=== PATIENT | female | born 1990 | race Hispanic/Latino ===

== ENCOUNTER 2018-06-13 16:51 | Emergency (ER) | payer SELFPAY ==
[2018-06-13 20:18] LABS: Urine Blood 2+ (NEG); Urine Glucose NEGATIVE (NEG); Urine Protein 1+ (NEG)
[2018-06-13 20:55] LABS: Absolute Lymphocytes (CBC) 2.8 K/uL (0.7-4.9); Absolute Monocytes 0.8 K/uL (0.1-1.3); Absolute Neutrophil 9.1 K/uL (1.8-8.0); Basophils % 0.5 % (0-1.3); Eosinophils % 2.9 % (0-4.4); Hematocrit 42.4 % (36.0-45.0); Lymphocytes % 21.2 % (15.3-44.8); MPV 8.7 fL (7.6-11.3); Monocytes % 5.9 % (3.3-12.3); RBC Red Blood Cell Count 4.63 M/uL (3.86-4.86)
[2018-06-13 21:39] LABS: BUN Blood Urea Nitrogen 12 mg/dL (7-18); Bicarbonate 25 mmol/L (21-32); Glucose Level 74 mg/dL (74-106); HCG, Quantitative 138752 mIU/mL (1-3); Potassium 3.9 mmol/L (3.5-5.1); Sodium Level 138 mmol/L (136-145)
--- NOTE | 2018-06-13 22:04 | ER ---
Nurse's Notes [facility] Name: Daniella Gallego Age: 28 yrs Sex: Female : 1990 Arrival Date: 06/13/2018 Time: 16:55 Bed 16 Private MD: TUCKER ROME Diagnosis: Threatened Presentation: 06/13 17:05 Presenting complaint: Vaginal bleeding and lower abdominal pain x 2 days. Pt reports hb she is 7 weeks , LMP 04/19/2018, . Transition of care: patient was not received from another setting of care. Onset of symptoms was June 12, 2018. Risk Assessment: Do you want to hurt yourself or someone else? Patient reports no desire to harm self or others. Care prior to arrival: None. 17:05 Method Of Arrival: Ambulatory hb 17:05 Acuity: TANNER 3 hb 20:00 Initial Sepsis Screen: Does the patient meet any 2 criteria? No. Patient's initial rr5 sepsis screen is negative. Does the patient have a suspected source of infection? No. Patient's initial sepsis screen is negative. 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 - Social history:: Smoking status: Patient/guardian denies using tobacco. - Ebola Screening: : No symptoms or risks identified at this time. Screenin:22 Abuse screen: Denies threats or abuse. Denies injuries from another. Nutritional rr5 screening: No deficits noted. Tuberculosis screening: No symptoms or risk factors identified. Fall Risk None identified. Total Johnson Fall Scale indicates No Risk (0-24 pts). Assessment: 19:15 General: Appears in no apparent distress. uncomfortable, Behavior is calm, cooperative, rr5 appropriate for age. Pain: Complains of pain in lower abdominal Pain currently is 7 out of 10 on a pain scale. Quality of pain is described as aching, Pain began gradually, Is intermittent. 19:15 Neuro: Level of Consciousness is awake, alert, obeys commands, Oriented to person, rr5 place, time, situation, Appropriate for age. Cardiovascular: Capillary refill < 3 seconds Patient's skin is warm and dry. Respiratory: Airway is patent Respiratory effort is even, unlabored, Respiratory pattern is regular, symmetrical. GI: Abdomen is round : No signs and/or symptoms were reported regarding the genitourinary system. EENT: No signs and/or symptoms were reported regarding the EENT system. Derm: Skin is intact, Skin temperature is warm. Musculoskeletal: Capillary refill < 3 seconds, Range of motion: intact in all extremities. 19:15 Obstetrical Assessment: General assessment: awake and alert, Rupture of membranes rr5 noted. Patient reports Abdominal pain. 19:15 : Reports vaginal bleeding that is with clots, coles in [place] discharge . i have not rr5 check for test yet. I don't have menstrual period for 2 months. 20:45 Reassessment: Patient appears in no apparent distress at this time. No changes from rr5 previously documented assessment. Patient is alert, oriented x 3, equal unlabored respirations, skin warm/dry/pink. went for ultrasound. 21:30 Reassessment: Patient appears in no apparent distress at this time. awaiting for result.rr5 22:15 Reassessment: Patient appears in no apparent distress at this time. Patient is alert, rr5 oriented x 3, equal unlabored respirations, skin warm/dry/pink. patient refused for pelvic exam. ED provider spoke to the patient and discharge. instructions given with no complaints made. Vital Signs: 17:06 BP 113 / 99; Pulse 90; Resp 16; Temp 98.4; Pulse Ox 100% on R/A; Pain 7/10; hb 19:15 BP 104 / 59; Pulse 78; Resp 16; Pulse Ox 100% ; rr5 20:30 BP 98 / 61; Pulse 75; Resp 17; Pulse Ox 99% ; rr5 21:30 BP 101 / 60; Pulse 70; Resp 17; Pulse Ox 99% ; rr5 22:00 BP 103 / 60; Pulse 71; Resp 18; Pulse Ox 98% ; rr5 ED Course: 16:55 Patient arrived in ED. sb2 16:56 TUCKER ROME is Private Physician. sb2 17:06 Triage completed. hb 17:07 Arm band placed on. hb 19:15 Pradeep Crump PA is PHCP. cp 19:18 Shawnee Kay, RN is Primary Nurse. ls4 19:23 Patient has correct armband on for positive identification. Placed in gown. Bed in low rr5 position. Call light in reach. Side rails up X 1. Pulse ox on. NIBP on. Warm blanket given. 19:38 Pradeep Ambriz MD is Attending Physician. cp 20:20 Inserted saline lock: 22 gauge in left forearm, using aseptic technique. Blood rr5 collected. 21:18 US Transvaginal Ob In Process Unspecified. EDMS 22:15 No provider procedures requiring assistance completed. IV discontinued, intact, rr5 bleeding controlled, No redness/swelling at site. Pressure dressing applied. Administered Medications: No medications were administered Point of Care Testing: Urine : 21:20 hCG Reading: Positive; Control Reading: Positive; rr5 Outcome: 22:02 Discharge ordered by . cp 22:15 Discharged to home ambulatory. rr5 22:15 Condition: stable 22:15 Discharge instructions given to patient, Instructed on discharge instructions, follow up and referral plans. medication usage, Demonstrated understanding of instructions, follow-up care, medications, Prescriptions given X 1. 22:53 Patient left the ED. rr5 Signatures: Dispatcher [employer] EDOR Pradeep Crump PA PA cp Mirta Kim, RN RN Deb Vanegas sb2 Shawnee Kay, RN RN ls4 Martin Wynne, RN RN rr5
--- NOTE | 2018-06-13 22:04 | EDPHYS ---
Physician Documentation [facility] Name: Daniella Gallego Age: 28 yrs Sex: Female : 1990 Arrival Date: 06/13/2018 Time: 16:55 Bed 16 Private MD: TUCKER ROME ED Physician Pradeep Ambriz HPI: 06/13 19:30 This 28 yrs old Female presents to ER via Ambulatory with complaints of cp Vaginal Bleeding, + Preg <12wks. 19:30 The patient presents to the emergency department with abdominal pain, of the suprapubic cp area, that started 2 day(s) ago, described as crampy, vaginal bleeding, that is light. The estimated gestational age is 7 weeks. course: care: none, Ultrasound: the patient has not had an ultrasound. Associated signs and symptoms: Pertinent negatives: chest pain, diarrhea, frequency, vomiting. 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 - Social history:: Smoking status: Patient/guardian denies using tobacco. - Ebola Screening: : No symptoms or risks identified at this time. ROS: 19:35 Constitutional: Negative for body aches, chills, fever, poor PO intake. cp 19:35 Eyes: Negative for injury, pain, redness, and discharge. cp 19:35 ENT: Negative for drainage from ear(s), ear pain, sore throat, difficulty swallowing, difficulty handling secretions. 19:35 Cardiovascular: Negative for chest pain. 19:35 Respiratory: Negative for cough, shortness of breath, wheezing. 19:35 Abdomen/GI: Positive for abdominal cramps, Negative for vomiting, diarrhea, constipation, black/tarry stool, rectal bleeding. 19:35 : Positive for vaginal bleeding, Negative for urinary symptoms. 19:35 Skin: Negative for cellulitis, rash. 19:35 Neuro: Negative for dizziness, headache, syncope, weakness. 19:35 All other systems are negative. Exam: 19:40 Constitutional: The patient appears in no acute distress, alert, awake, non-toxic, well cp developed, well nourished. 19:40 Head/Face: Normocephalic, atraumatic. cp 19:40 Eyes: Periorbital structures: appear normal, Conjunctiva: normal, no exudate, no injection, Sclera: no appreciated abnormality, Lids and lashes: appear normal. 19:40 ENT: External ear(s): are unremarkable, Nose: is normal, Mouth: Lips: moist, Oral mucosa: pink and intact, moist, Posterior pharynx: is normal, airway is patent, no erythema, no exudate. 19:40 Chest/axilla: Inspection: normal, Palpation: is normal, no crepitus, no tenderness. 19:40 Cardiovascular: Rate: normal, Rhythm: regular. 19:40 Respiratory: the patient does not display signs of respiratory distress, Respirations: normal, no use of accessory muscles, no retractions, no splinting, no tachypnea, labored breathing, is not present. 19:40 Abdomen/GI: Inspection: abdomen appears normal, Bowel sounds: active, all quadrants, Palpation: soft, in all quadrants, mild abdominal tenderness, in the suprapubic area, rebound tenderness, is not appreciated, voluntary guarding, is not appreciated, involuntary guarding, is not appreciated. 19:40 Back: pain, is absent, ROM is normal. 19:40 Skin: cellulitis, is not appreciated, no rash present. 21:59 : Pelvic Exam: The exam is refused by the patient/guardian. The risks and cp consequences are understood by the patient. Vital Signs: 17:06 BP 113 / 99; Pulse 90; Resp 16; Temp 98.4; Pulse Ox 100% on R/A; Pain 7/10; hb 19:15 BP 104 / 59; Pulse 78; Resp 16; Pulse Ox 100% ; rr5 20:30 BP 98 / 61; Pulse 75; Resp 17; Pulse Ox 99% ; rr5 21:30 BP 101 / 60; Pulse 70; Resp 17; Pulse Ox 99% ; rr5 22:00 BP 103 / 60; Pulse 71; Resp 18; Pulse Ox 98% ; rr5 MDM: 19:18 Patient medically screened. cp 20:00 Differential diagnosis: STD, ectopic , UTI. cp 22:00 Data reviewed: vital signs, nurses notes, lab test result(s), radiologic studies, cp ultrasound. 22:00 Counseling: I had a detailed discussion with the patient and/or guardian regarding: the cp historical points, exam findings, and any diagnostic results supporting the discharge/admit diagnosis, lab results, radiology results, the need for outpatient follow up, an OB/Gyne specialist, to return to the emergency department if symptoms worsen or persist or if there are any questions or concerns that arise at home. Special discussion: Based on the patient's Hx, exam, and Dx evaluation, there is no indication for emergent surgery or inpatient Tx. It is understood by the patient/guardian that if the Sx's persist or worsen they need to return immediately for re-evaluation. 06/13 19:20 Order name: Urine Dipstick--Ancillary (enter results); Complete Time: 21:20 ms 06/13 19:21 Order name: Urine --Ancillary (enter results); Complete Time: 21:20 ms 06/13 19:39 Order name: Quantitative Hcg; Complete Time: 21:49 cp 0212 21:49 Interpretation: HCGQ 222076; Reviewed. cp 02 19:39 Order name: Abo/rh Typing; Complete Time: 21:49 cp 02 19:39 Order name: Basic Metabolic Panel; Complete Time: 21:49 cp 06/13 19:39 Order name: CBC with Diff; Complete Time: 21:20 cp 0212 21:20 Interpretation: Normal except: WBC 13.2; MCV 91.6. cp 06/13 19:39 Order name: Urine Test (obtain specimen); Complete Time: 20:46 cp 02 19:39 Order name: IV Saline Lock; Complete Time: 20:46 cp 06/13 19:39 Order name: Labs collected and sent; Complete Time: 20:46 cp 06/13 19:39 Order name: NPO; Complete Time: 20:46 cp 12 20:32 Order name: US Transvaginal Ob cp 06/13 20:53 Order name: Urine Microscopic Only rr5 02 19:39 Order name: Urine Dipstick-Ancillary (obtain specimen); Complete Time: 20:46 cp Administered Medications: No medications were administered Point of Care Testing: Urine : 21:20 hCG Reading: Positive; Control Reading: Positive; rr5 Disposition: 06/14 06:54 Co-signature as Attending Physician, Pradeep Ambriz MD I agree with the assessment and [facility] plan of care. Disposition: 06/13/18 22:02 Discharged to Home. Impression: Threatened . - Condition is Stable. - Discharge Instructions: Threatened Miscarriage, Vaginal Bleeding During , First Trimester, Pelvic Rest. - Prescriptions for Vitamin 27- 0.8 mg Oral Tablet - take 1 tablet by ORAL route once daily; 60 tablet. - Medication Reconciliation Form, Thank You Letter, Antibiotic Education, Prescription Opioid Use form. 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 - Problem is new. - Symptoms have improved. Signatures: Dispatcher [employer] EDPradeep Logan MD MD cha Page, Corey, PA PA cp Baxter, Heather, ROD RN Martin Quesada RN RN rr5 Corrections: (The following items were deleted from the chart) 06/13 22:49 20:31 Pelvic Exam Setup ordered. cp rr5 22:53 22:02 06/13/2018 22:02 Discharged to Home. Impression: Threatened . Condition rr5 is Stable. Forms are Medication Reconciliation Form, Thank You Letter, Antibiotic Education, Prescription Opioid Use. 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 Problem is new. Symptoms have improved. cp
[2018-06-13 22:29] LABS: Urine Bacteria <20 /HPF (<20); Urine RBC <5 /HPF (NONE SEEN)
[2018-06-13 22:30] LABS: Urine Culture Reflex Order NOT NEEDED
--- NOTE | 2018-06-14 08:01 | RAD REPORT ---
EXAM DESCRIPTION: US - Transvaginal OB - 06/13/2018 9:17 pm CLINICAL HISTORY: with vaginal bleeding COMPARISON: None. FINDINGS: The uterus 10 x 8 x 8 centimeters. A gestational sac is present within the endometrium. W ithin this is a yolk sac and pole with a crown-rump length 2 centimeters. Cardiac activity 166 beats per minute. Small subchorionic bleed present Neither ovary was seen. An adnexal mass is not noted. Evaluation right and left adnexal unremarkable No significant free fluid is seen. IMPRESSION: Single live intrauterine with an estimated gestational age 8 weeks 4 days ADRIEL 01/19/2019
== END 2018-06-13 22:53 | disposition home or self-care (01) ==
LOC: ER 16:51
DX: O20.0 Threatened abortion (principal); Z3A.01 Less than 8 weeks gestation of pregnancy
CPT/HCPCS: 36415; 76817; 80048; 81003; 81015; 81025; 84702; 85025; 86900; 86901; 99284

== ENCOUNTER 2018-07-06 20:49 | Emergency (ER) | payer SELFPAY ==
[2018-07-06] MEDS ORDERED: PROMETHAZINE 25 MG/ML VIAL ONE (22:18)
[2018-07-06] MEDS ORDERED: NA CHLORIDE 0.9% 2,000 ML ONE (22:19)
[2018-07-06] MEDS ORDERED: FENTANYL CITR 100 MCG/2 ML ONE (22:19)
[2018-07-06] MEDS ORDERED: OXYTOCIN 10 UNIT/ML ML IV ONE (23:33)
[2018-07-06] MEDS ORDERED: NA CHLORIDE 0.9% 1,000 ML ONE (23:33)
[2018-07-07 00:18] LABS: Absolute Lymphocytes (CBC) 2.1 K/uL (0.7-4.9); Absolute Monocytes 0.6 K/uL (0.1-1.3); Absolute Neutrophil 13.2 K/uL (1.8-8.0); Basophils % 0.3 % (0-1.3); Eosinophils % 0.5 % (0-4.4); Hematocrit 40.2 % (36.0-45.0); Lymphocytes % 13.3 % (15.3-44.8); Monocytes % 3.6 % (3.3-12.3); RBC Red Blood Cell Count 4.42 M/uL (3.86-4.86)
[2018-07-07 00:26] LABS: BUN Blood Urea Nitrogen 9 mg/dL (7-18); Bicarbonate 22 mmol/L (21-32); Glucose Level 101 mg/dL (74-106); Potassium 3.5 mmol/L (3.5-5.1); Sodium Level 139 mmol/L (136-145)
[2018-07-07 01:20] LABS: Blood Morphology Comment NOT SEEN (NOT SEEN); Platelet Estimate ADEQ; Urine White Blood Cell Casts OK
[2018-07-07] MEDS ORDERED: PROMETHAZINE 25 MG/ML VIAL ONE (02:15)
[2018-07-07] MEDS ORDERED: NA CHLORIDE 0.9% 1,000 ML ONE (02:15)
[2018-07-07] MEDS ORDERED: METHYLERGONOVINE 0.2MG/ML AMP IM ONE (02:15)
[2018-07-07] MEDS ORDERED: FENTANYL CITR 100 MCG/2 ML ONE ×2 (02:15)
[2018-07-07] MEDS ORDERED: METHYLERGONOVINE 0.2 MG TAB PO ONE (02:27)
--- NOTE | 2018-07-07 02:35 | ER ---
Nurse's Notes [facility] Name: Daniella Gallego Age: 28 yrs Sex: Female : 1990 Arrival Date: 07/06/2018 Time: 20:50 Bed 14 Private MD: Diagnosis: Complete or unspecified spontaneous without complication Presentation: 07/06 20:53 Presenting complaint: Patient states: Vaginal bleeding that started 8 hours ago, aj1 reports hours ago her pain became severe and her bleeding became heavier with large clots. Reports lower abdominal and back pain that she describes as cramping. Patient is currently 14 weeks , and sees Dr. Hart at [facility]. Transition of care: patient was not received from another setting of care. Onset of symptoms was July 06, 2018. Risk Assessment: Do you want to hurt yourself or someone else? Patient reports no desire to harm self or others. Initial Sepsis Screen: Does the patient meet any 2 criteria? No. Patient's initial sepsis screen is negative. Does the patient have a suspected source of infection? No. Patient's initial sepsis screen is negative. Care prior to arrival: None. 20:53 Method Of Arrival: Ambulatory aj1 20:53 Acuity: TANNER 3 aj1 Triage Assessment: 20:55 General: Appears uncomfortable, Behavior is cooperative, agitated, crying, restless. aj1 Pain: Complains of pain in back and abdomen Pain currently is 10 out of 10 on a pain scale. Quality of pain is described as crampy. Neuro: Level of Consciousness is awake, alert, obeys commands. Cardiovascular: Patient's skin is warm and dry. Respiratory: Airway is patent Respiratory effort is even, unlabored, Respiratory pattern is regular, symmetrical. : Reports vaginal bleeding that is bright red, with clots, heavy flow. 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 - Social history:: Smoking status: Patient/guardian denies using tobacco. - Ebola Screening: : Patient denies travel to an Ebola-affected area in the 21 days before illness onset. Screenin:00 Abuse screen: Denies threats or abuse. Denies injuries from another. Nutritional rr5 screening: No deficits noted. Tuberculosis screening: No symptoms or risk factors identified. 21:37 Fall Risk IV access (20 points). Total Johnson Fall Scale indicates No Risk (0-24 pts). rr5 Assessment: 21:00 Reassessment: fetus formed specimen came out, given by the patient. sent to laboratory. rr5 21:00 General: Appears in no apparent distress. uncomfortable, Behavior is calm, appropriate rr5 for age, crying. Pain: Complains of pain in pelvis Pain radiates to back and lower leg Pain currently is 8 out of 10 on a pain scale. Quality of pain is described as aching, Pain began gradually, Is intermittent. Neuro: Level of Consciousness is awake, alert, obeys commands, Oriented to person, place, time, situation. Cardiovascular: Capillary refill < 3 seconds Patient's skin is warm and dry. Respiratory: Airway is patent Respiratory effort is even, unlabored, Respiratory pattern is regular, symmetrical. 21:00 GI: No signs and/or symptoms were reported involving the gastrointestinal system. : rr5 Reports vaginal bleeding that is pass fetus formed specimen. EENT: No signs and/or symptoms were reported regarding the EENT system. Derm: No signs and/or symptoms reported regarding the dermatologic system. Musculoskeletal: Capillary refill < 3 seconds, Range of motion: intact in all extremities. 21:00 Obstetrical Assessment: General assessment: awake and alert, skin warm and dry, crying rr5 fetus came out. 22:00 Reassessment: Patient appears in no apparent distress at this time. Patient is alert, rr5 oriented x 3, equal unlabored respirations, skin warm/dry/pink. no complaints made awaiting for laboratory result. 23:30 Reassessment: complaining of emi pain. ED provider aware with order made and rr5 carried out. 07/07 00:00 Reassessment: ED provider discontinue the pitocin drip. patient having too much rr5 contraction. 02:00 Reassessment: pelvic exam done assisted by chloe VELASCO patient tolerated well. blood rr5 clots noted. 03:00 Reassessment: Patient appears in no apparent distress at this time. Patient is alert, rr5 oriented x 3, equal unlabored respirations, skin warm/dry/pink. ED provider ordered, for discharge after the IV bolus. Reassessment:. 03:57 Reassessment: Patient appears in no apparent distress at this time. Patient is alert, rr5 oriented x 3, equal unlabored respirations, skin warm/dry/pink. discharge instruction given and explained without complaints made. Patient states feeling better. Patient states symptoms have improved. Vital Signs: 07/06 20:55 BP 125 / 98; Pulse 95; Resp 18; Temp 97.6; Pulse Ox 97% on R/A; Weight 81.65 kg (R); aj1 Height 5 ft. 4 in. (162.56 cm); Pain 10/10; 07/07 00:06 BP 110 / 64; Pulse 85; Resp 16; Pulse Ox 99% on R/A; mt 00:53 BP 105 / 65; Pulse 82; Resp 18; Pulse Ox 99% on R/A; mt 02:10 BP 110 / 70; Pulse 89; Resp 16; Pulse Ox 96% on R/A; mt 02:45 BP 97 / 61; Pulse 75; Resp 20; Pulse Ox 98% ; rr5 03:00 BP 95 / 46; Pulse 71; Resp 17; Pulse Ox 99% ; rr5 03:30 BP 97 / 55; Pulse 89; Resp 15; Pulse Ox 99% ; rr5 03:57 BP 100 / 62; Pulse 82; Resp 16; Pulse Ox 99% ; rr5 07/06 20:55 Body Mass Index 30.90 (81.65 kg, 162.56 cm) aj1 ED Course: 07/06 20:50 Patient arrived in ED. ds1 20:55 Triage completed. aj1 20:55 Arm band placed on Patient placed in waiting room, Patient notified of wait time. aj1 21:15 Martin Wynne RN is Primary Nurse. rr5 21:37 Patient has correct armband on for positive identification. Placed in gown. Bed in low rr5 position. Call light in reach. Side rails up X2. Pulse ox on. NIBP on. 21:47 Shaniqua Osuna FNP-C is PHCP. snw 21:47 Anival Moore MD is Attending Physician. snw 22:11 Inserted saline lock: 22 gauge in right wrist, using aseptic technique. Blood collected.wi 07/07 01:58 Assist provider with pelvic exam: Set up pelvic tray. Performed by Shaniqua Osuna ed1 MEDICAL RECORDS SUPERVISOR-C POC passed, sent to pathology, Patient tolerated well. 03:59 IV discontinued, intact, bleeding controlled, No redness/swelling at site. Pressure rr5 dressing applied. Administered Medications: 07/06 22:24 Drug: NS 0.9% 1000 ml Route: IV; Rate: 1 bolus; Site: right wrist; rr5 23:30 Follow up: Response: No adverse reaction; IV Status: Completed infusion; IV Intake: rr5 1000ml 22:25 Drug: Phenergan 6.25 mg Route: IVP; Site: right wrist; rr5 07/07 03:04 Follow up: Response: No adverse reaction rr5 07/06 22:30 Drug: fentaNYL (PF) 50 mcg Route: IVP; Site: right wrist; rr5 07/07 03:04 Follow up: Response: No adverse reaction rr5 07/06 23:30 Drug: NS 0.9% 1000 ml Route: IV; Rate: 125 ml/hr; Site: right wrist; rr5 07/07 01:00 Follow up: Response: No adverse reaction; IV Status: Completed infusion; IV Intake: rr5 1000ml 07/06 23:30 Drug: Pitocin 20 units Route: IV; Rate: calculated rate; Site: right wrist; rr5 07/07 00:00 Follow up: Response: No adverse reaction; IV Status: Order to discontinue infusion; IV rr5 Intake: 125ml 07/06 23:40 Drug: fentaNYL (PF) 50 mcg Route: IVP; Site: right wrist; rr5 07/07 03:05 Follow up: Response: No adverse reaction rr5 02:10 Drug: NS 0.9% 1000 ml Route: IV; Rate: 1 bolus; Site: right wrist; rr5 04:00 Follow up: Response: No adverse reaction; IV Status: Completed infusion; IV Intake: rr5 1000ml 02:10 Drug: Phenergan 6.25 mg Route: IVP; Site: right wrist; rr5 04:00 Follow up: Response: No adverse reaction rr5 02:15 Drug: fentaNYL (PF) 25 mcg Route: IVP; Site: right wrist; rr5 04:00 Follow up: Response: No adverse reaction rr5 02:20 Drug: METHERgine 0.2 mg Route: PO; rr5 04:00 Follow up: Response: No adverse reaction rr5 Intake: 03 23:30 IV: 1000ml; Total: 1000ml. rr5 03 00:00 IV: 125ml; Total: 1125ml. rr5 01:00 IV: 1000ml; Total: 2125ml. rr5 04:00 IV: 1000ml; Total: 3125ml. rr5 Outcome: 02:33 Discharge ordered by MD. hamm 03:59 Discharged to home ambulatory. rr5 03:59 Condition: stable 03:59 Discharge instructions given to patient, Instructed on discharge instructions, follow up and referral plans. medication usage, Demonstrated understanding of instructions, follow-up care, medications, Prescriptions given X 2. 04:01 Patient left the ED. rr5 Signatures: Vikki Mccord RN RN aj1 Shaniqua Osuna, MEDICAL RECORDS SUPERVISOR-C MEDICAL RECORDS SUPERVISOR-Latia Wharton ds1 Audelia Junior RN RN ed1 Carol Burrell mt, Raymond, RN RN rr5 Corrections: (The following items were deleted from the chart) 07/06 20:55 20:53 Presenting complaint: Patient states: Vaginal bleeding that started 8 hours ago, aj1 reports hours ago her pain became severe and her bleeding became heavier with large clots. Reports lower abdominal and back pain that she describes as cramping. aj1
--- NOTE | 2018-07-07 02:35 | EDPHYS ---
Physician Documentation [facility] Name: Daniella Gallego Age: 28 yrs Sex: Female : 1990 Arrival Date: 07/06/2018 Time: 20:50 Bed 14 Private MD: ED Physician Anival Moore HPI: 07/06 22:20 This 28 yrs old Female presents to ER via Ambulatory with complaints of snw Vaginal Bleeding, + Preg <12wks - +14 Wks. 22:20 The patient presents with vaginal bleeding that is moderate. Onset: The snw symptoms/episode began/occurred suddenly, at 12:00, and became worse and became persistent. Associated signs and symptoms: Pertinent positives: cramping. Severity of symptoms: At their worst the symptoms were moderate, severe. seeing Dr. Hart in [place]. pt states she felt the need to push, felt her water break, and the fetus was expelled into to the toilet in the ED waiting room.. 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 - Social history:: Smoking status: Patient/guardian denies using tobacco. - Ebola Screening: : Patient denies travel to an Ebola-affected area in the 21 days before illness onset. ROS: 22:18 Constitutional: Negative for fever, chills, and weight loss, Eyes: Negative for injury, snw pain, redness, and discharge, ENT: Negative for injury, pain, and discharge, Neck: Negative for injury, pain, and swelling, Cardiovascular: Negative for chest pain, palpitations, and edema, Respiratory: Negative for shortness of breath, cough, wheezing, and pleuritic chest pain, Abdomen/GI: Negative for abdominal pain, nausea, vomiting, diarrhea, and constipation, Back: Negative for injury and pain, MS/Extremity: Negative for injury and deformity, Skin: Negative for injury, rash, and discoloration, Neuro: Negative for headache, weakness, numbness, tingling, and seizure. 22:18 : Positive for vaginal bleeding, of the lower abdominal pain (all day), + products of conception delivered in waiting room bathroom. Products collected and sent to lab. Exam: 22:17 Constitutional: This is a well developed, well nourished patient who is awake, alert, snw and in no acute distress. Head/Face: Normocephalic, atraumatic. Eyes: Pupils equal round and reactive to light, extra-ocular motions intact. Lids and lashes normal. Conjunctiva and sclera are non-icteric and not injected. Cornea within normal limits. Periorbital areas with no swelling, redness, or edema. ENT: Nares patent. No nasal discharge, no septal abnormalities noted. Tympanic membranes are normal and external auditory canals are clear. Oropharynx with no redness, swelling, or masses, exudates, or evidence of obstruction, uvula midline. Mucous membranes moist. Neck: Trachea midline, no thyromegaly or masses palpated, and no cervical lymphadenopathy. Supple, full range of motion without nuchal rigidity, or vertebral point tenderness. No Meningismus. Chest/axilla: Normal chest wall appearance and motion. Nontender with no deformity. No lesions are appreciated. Cardiovascular: Regular rate and rhythm with a normal S1 and S2. No gallops, murmurs, or rubs. Normal PMI, no JVD. No pulse deficits. Respiratory: Lungs have equal breath sounds bilaterally, clear to auscultation and percussion. No rales, rhonchi or wheezes noted. No increased work of breathing, no retractions or nasal flaring. mild tachypnea Abdomen/GI: Soft, non-tender, with normal bowel sounds. No distension or tympany. No guarding or rebound. No evidence of tenderness throughout. Back: No spinal tenderness. No costovertebral tenderness. Full range of motion. MS/ Extremity: Pulses equal, no cyanosis. Neurovascular intact. Full, normal range of motion. Neuro: Awake and alert, GCS 15, oriented to person, place, time, and situation. Cranial nerves II-XII grossly intact. Motor strength 5/5 in all extremities. Sensory grossly intact. Cerebellar exam normal. Normal gait. Psych: Awake, alert, with orientation to person, place and time. Behavior, mood, and affect are within normal limits. 22:17 Skin: Appearance: Color: pale. Vital Signs: 20:55 BP 125 / 98; Pulse 95; Resp 18; Temp 97.6; Pulse Ox 97% on R/A; Weight 81.65 kg (R); aj1 Height 5 ft. 4 in. (162.56 cm); Pain 10/10; 07/07 00:06 BP 110 / 64; Pulse 85; Resp 16; Pulse Ox 99% on R/A; mt 00:53 BP 105 / 65; Pulse 82; Resp 18; Pulse Ox 99% on R/A; mt 02:10 BP 110 / 70; Pulse 89; Resp 16; Pulse Ox 96% on R/A; mt 02:45 BP 97 / 61; Pulse 75; Resp 20; Pulse Ox 98% ; rr5 03:00 BP 95 / 46; Pulse 71; Resp 17; Pulse Ox 99% ; rr5 03:30 BP 97 / 55; Pulse 89; Resp 15; Pulse Ox 99% ; rr5 03:57 BP 100 / 62; Pulse 82; Resp 16; Pulse Ox 99% ; rr5 07/06 20:55 Body Mass Index 30.90 (81.65 kg, 162.56 cm) aj1 Procedures: 01:58 Performed Pelvic exam, large clots evacuated, cervix open, no active bleeding.. snw MDM: 07/06 22:00 Patient medically screened. snw 07/07 00:02 Data reviewed: vital signs, nurses notes. Data interpreted: Pulse oximetry: on room air snw is 97 %. Interpretation: normal. Counseling: I had a detailed discussion with the patient and/or guardian regarding: the historical points, exam findings, and any diagnostic results supporting the discharge/admit diagnosis, the presence of at least one elevated blood pressure reading (>120/80) during this emergency department visit, lab results. Response to treatment: pt with sudden increase in pain, pitocin stopped at this time as bleeding is controlled. NS bolus continues. Fentanyl repeated 2nd to pain.. 07/06 21:48 Order name: Abo/rh Typing snw 07/06 23:53 Order name: Basic Metabolic Panel; Complete Time: 00:36 EDMS 07/06 23:53 Order name: CBC with Automated Diff; Complete Time: 01:23 EDMS 07/06 23:53 Order name: ABO/RH typing; Complete Time: 01:24 EDMS 07/07 00:27 Order name: CBC Smear Scan; Complete Time: 01:23 EDMS 07/06 21:48 Order name: IV Saline Lock; Complete Time: 22:11 snw 07/06 21:48 Order name: Labs collected and sent; Complete Time: 22:11 snw 07/06 21:48 Order name: NPO; Complete Time: 22:11 snw 07/07 01:06 Order name: Pelvic Exam Setup; Complete Time: :08 snw Administered Medications: 07/06 22:24 Drug: NS 0.9% 1000 ml Route: IV; Rate: 1 bolus; Site: right wrist; rr5 23:30 Follow up: Response: No adverse reaction; IV Status: Completed infusion; IV Intake: rr5 1000ml 22:25 Drug: Phenergan 6.25 mg Route: IVP; Site: right wrist; rr5 07/07 03:04 Follow up: Response: No adverse reaction rr5 07/06 22:30 Drug: fentaNYL (PF) 50 mcg Route: IVP; Site: right wrist; rr5 07/07 03:04 Follow up: Response: No adverse reaction rr5 07/06 23:30 Drug: NS 0.9% 1000 ml Route: IV; Rate: 125 ml/hr; Site: right wrist; rr5 07/07 01:00 Follow up: Response: No adverse reaction; IV Status: Completed infusion; IV Intake: rr5 1000ml 07/06 23:30 Drug: Pitocin 20 units Route: IV; Rate: calculated rate; Site: right wrist; rr5 07/07 00:00 Follow up: Response: No adverse reaction; IV Status: Order to discontinue infusion; IV rr5 Intake: 125ml 07/06 23:40 Drug: fentaNYL (PF) 50 mcg Route: IVP; Site: right wrist; rr5 07/07 03:05 Follow up: Response: No adverse reaction rr5 02:10 Drug: NS 0.9% 1000 ml Route: IV; Rate: 1 bolus; Site: right wrist; rr5 04:00 Follow up: Response: No adverse reaction; IV Status: Completed infusion; IV Intake: rr5 1000ml 02:10 Drug: Phenergan 6.25 mg Route: IVP; Site: right wrist; rr5 04:00 Follow up: Response: No adverse reaction rr5 02:15 Drug: fentaNYL (PF) 25 mcg Route: IVP; Site: right wrist; rr5 04:00 Follow up: Response: No adverse reaction rr5 02:20 Drug: METHERgine 0.2 mg Route: PO; rr5 04:00 Follow up: Response: No adverse reaction rr5 Disposition: 07/07/18 02:33 Discharged to Home. Impression: Complete or unspecified spontaneous without complication. - Condition is Stable. - Discharge Instructions: Miscarriage. - Prescriptions for Methergine 0.2 mg Oral tablet - take 1 tablet by ORAL route every 6 hours; 3 tablet. Tylenol- Codeine #3 300-30 mg Oral Tablet - take 2 tablets by ORAL route every 6 hours As needed; 18 tablet. - Work release form, Medication Reconciliation Form, Thank You Letter, Antibiotic Education, Prescription Opioid Use form. - Follow up: Private Physician; When: Tomorrow; Reason: Recheck today's complaints, Continuance of care, Re-evaluation by your physician. Follow up: Emergency Department; When: As needed; Reason: Worsening of condition. Addendum: 07/11/2018 20:37 Co-signature as Attending Physician, Anival Moore MD. m a2 Signatures: Dispatcher [employer] EDVikki Angeles RN RN aj1 Shaniqua Osuna FNP-Karen RESEARCH SCIENTIST-Anival Garcia MD MD ma2 Martin Wynne RN RN rr5 Corrections: (The following items were deleted from the chart) 07/06 23:58 21:48 ABO/RH typing ordered. [facility] EDNE 23:58 21:49 BASIC METABOLIC PANEL+C.LAB.BRZ ordered. [facility] EDMS 23:58 21:49 CBC+H.LAB.BRZ ordered. [facility] EDMS 23:59 23:53 Basic Metabolic Panel ordered. [facility] 07/07 04:01 02:33 07/07/2018 02:33 Discharged to Home. Impression: Complete or unspecified rr5 spontaneous without complication. Condition is Stable. Discharge Instructions: Miscarriage. Prescriptions for Methergine 0.2 mg Oral tablet - take 1 tablet by ORAL route every 6 hours; 3 tablet, Tylenol-Codeine #3 300-30 mg Oral Tablet - take 2 tablet by ORAL route every 6 hours As needed; 30 tablet. and Forms are Work release form, Medication Reconciliation Form, Thank You Letter, Antibiotic Education, Prescription Opioid Use. Follow up: Private Physician; When: Tomorrow; Reason: Recheck today's complaints, Continuance of care, Re-evaluation by your physician. Follow up: Emergency Department; When: As needed; Reason: Worsening of condition. snw
== END 2018-07-07 04:01 | disposition home or self-care (01) ==
LOC: ER 20:49
DX: O03.9 Complete or unspecified spontaneous abortion without complication (principal)
CPT/HCPCS: 36415; 80048; 85025; 86900; 86901; 88300; 96361; 96365; 96375; 99284; J2210; J2550; J2590; J3010; J7030

== ENCOUNTER 2019-05-29 15:41 | Emergency (ER) | payer SELFPAY ==
--- NOTE | 2019-05-29 17:31 | ER ---
Nurse's Notes [facility] Name: Daniella Gallego Age: 29 yrs Sex: Female : 1990 Arrival Date: 05/29/2019 Time: 15:44 Bed 12 Private MD: Diagnosis: Acute upper respiratory infection, unspecified Presentation: 05/29 15:49 Presenting complaint: Patient states: Fever x 3-4 days, on and off. Cough and ca1 congestion x 6 days. Reports diarrhea. Denies N/V. Transition of care: patient was not received from another setting of care. Onset of symptoms was May 29, 2019. Risk Assessment: Do you want to hurt yourself or someone else? Patient reports no desire to harm self or others. Initial Sepsis Screen: Does the patient meet any 2 criteria? No. Patient's initial sepsis screen is negative. Does the patient have a suspected source of infection? No. Patient's initial sepsis screen is negative. Care prior to arrival: None. 15:49 Method Of Arrival: Ambulatory ca1 15:49 Acuity: TANNER 3 ca1 Triage Assessment: 17:55 General: Appears in no apparent distress. Behavior is calm. 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 - Coronavirus screen:: The patient has NOT traveled to [place], [place], or [place] in the past 14 days. The patient has NOT had contact with known/suspected case of Coronavirus?. - Social history:: Smoking status: Patient denies any tobacco usage or history of. - Ebola Screening: : Patient negative for fever greater than or equal to 101.5 degrees Fahrenheit, and additional compatible Ebola Virus Disease symptoms Patient denies exposure to infectious person Patient denies travel to an Ebola-affected area in the 21 days before illness onset No symptoms or risks identified at this time. Screenin:55 Abuse screen: Denies threats or abuse. Denies injuries from another. Nutritional iw screening: No deficits noted. Tuberculosis screening: No symptoms or risk factors identified. Fall Risk None identified. Assessment: 16:56 General: Appears in no apparent distress. Behavior is calm, cooperative. General: iw Reports chills for fever for feeling ill for fatigue for. Pain: Complains of pain in head and chest Pain currently is 8 out of 10 on a pain scale. Neuro: Level of Consciousness is awake, alert, obeys commands, Oriented to person, place, time, situation, Cardiovascular: Patient's skin is warm and dry. Respiratory: Respiratory effort is even, unlabored, Respiratory pattern is regular, symmetrical. GI: Abdomen is non-distended. Derm: No signs and/or symptoms reported regarding the dermatologic system. Skin is intact, is healthy with good turgor. Musculoskeletal: Range of motion: intact in all extremities. Vital Signs: 15:51 BP 114 / 75; Pulse 108; Resp 18 S; Temp 98.6(O); Pulse Ox 99% on R/A; Weight 77.11 kg ca1 (R); Height 5 ft. 4 in. (162.56 cm) (R); 15:51 Body Mass Index 29.18 (77.11 kg, 162.56 cm) ca1 ED Course: 15:44 Patient arrived in ED. as 15:51 Triage completed. ca1 15:51 Arm band placed on right wrist. ca1 16:56 Patient has correct armband on for positive identification. iw 17:10 Kandice Frederick, RN is Primary Nurse. iw 17:16 Lb Patel FNP-C [facility]. la1 17:16 Pradeep Ambriz MD is Attending Physician. la1 17:55 No provider procedures requiring assistance completed. Patient did not have IV access iw during this emergency room visit. Administered Medications: 17:56 Drug: Tylenol 1000 mg Route: PO; iw 17:56 Drug: Tessalon Perle 200 mg Route: PO; iw Outcome: 17:31 Discharge ordered by MD. la1 17:55 Discharged to home ambulatory. iw 17:55 Condition: good 17:55 Discharge instructions given to patient, Instructed on discharge instructions, follow up and referral plans. medication usage, Demonstrated understanding of instructions, follow-up care, medications, Prescriptions given X 2. 17:56 Patient left the ED. iw Signatures: Hortencia Jimenez as Kandice Frederick RN RN iw Lb Patel FNP-C ANIMAL HOSPITAL CLERK-[facility] Acob, Cassy, RN RN ca1
--- NOTE | 2019-05-29 17:31 | EDPHYS ---
Physician Documentation [facility] Name: Daniella Gallego Age: 29 yrs Sex: Female : 1990 Arrival Date: 05/29/2019 Time: 15:44 Bed 12 Private MD: ED Physician Pradeep Ambriz HPI: 05/29 17:28 This 29 yrs old Female presents to ER via Ambulatory with complaints of Flu la1 Symptoms. 17:28 The patient or guardian reports cough, flu symptoms. Onset: The symptoms/episode la1 began/occurred 4 day(s) ago. Severity of symptoms: At their worst the symptoms were mild. Associated signs and symptoms: Pertinent positives: fever. The patient has not experienced similar symptoms in the past. daughter had flu A about a week ago. 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 - Coronavirus screen:: The patient has NOT traveled to [place], [place], or [place] in the past 14 days. The patient has NOT had contact with known/suspected case of Coronavirus?. - Social history:: Smoking status: Patient denies any tobacco usage or history of. - Ebola Screening: : Patient negative for fever greater than or equal to 101.5 degrees Fahrenheit, and additional compatible Ebola Virus Disease symptoms Patient denies exposure to infectious person Patient denies travel to an Ebola-affected area in the 21 days before illness onset No symptoms or risks identified at this time. ROS: 17:29 Eyes: Negative for injury, pain, redness, and discharge, ENT: Negative for injury, la1 pain, and discharge, Neck: Negative for injury, pain, and swelling, Cardiovascular: Negative for chest pain, palpitations, and edema. 17:29 Abdomen/GI: Negative for abdominal pain, nausea, vomiting, diarrhea, and constipation, Back: Negative for injury and pain, MS/Extremity: Negative for injury and deformity, Neuro: Negative for headache, weakness, numbness, tingling, and seizure, Endocrine: Negative for neck swelling, polydipsia, polyuria, polyphagia, and marked weight changes. 17:29 Constitutional: Positive for body aches, chills, fever, malaise. 17:29 Respiratory: Positive for cough. Exam: 17:29 Constitutional: This is a well developed, well nourished patient who is awake, alert, la1 and in no acute distress. Head/Face: Normocephalic, atraumatic. Eyes: Cornea within normal limits. Periorbital areas with no swelling, redness, or edema. ENT: Nares patent. No nasal discharge, Tympanic membranes are normal and external auditory canals are clear. Oropharynx with no redness, swelling, or masses, exudates, or evidence of obstruction, uvula midline. Mucous membranes moist. Neck: Trachea midline, Supple, full range of motion without nuchal rigidity, or vertebral point tenderness. No Meningismus. Chest/axilla: Normal chest wall appearance and motion. Nontender with no deformity. No lesions are appreciated. Cardiovascular: Regular rate and rhythm with a normal S1 and S2. No gallops, murmurs, or rubs. Normal PMI, no JVD. No pulse deficits. Respiratory: Lungs have equal breath sounds bilaterally, clear to auscultation No rales, rhonchi or wheezes noted. No increased work of breathing, no retractions or nasal flaring. Back: No spinal tenderness. No costovertebral tenderness. Full range of motion. Skin: Warm, dry with normal turgor. Normal color with no rashes, no lesions, and no evidence of cellulitis. MS/ Extremity: Pulses equal, no cyanosis. Neurovascular intact. Full, normal range of motion. Vital Signs: 15:51 BP 114 / 75; Pulse 108; Resp 18 S; Temp 98.6(O); Pulse Ox 99% on R/A; Weight 77.11 kg ca1 (R); Height 5 ft. 4 in. (162.56 cm) (R); 15:51 Body Mass Index 29.18 (77.11 kg, 162.56 cm) ca1 MDM: 17:16 Patient medically screened. la1 17:30 Data reviewed: vital signs, nurses notes, and as a result, I will discharge patient. la1 Data interpreted: Pulse oximetry: on room air is 99 %. Interpretation: normal. Counseling: I had a detailed discussion with the patient and/or guardian regarding: the historical points, exam findings, and any diagnostic results supporting the discharge/admit diagnosis, lab results, the need for outpatient follow up, a family practitioner, to return to the emergency department if symptoms worsen or persist or if there are any questions or concerns that arise at home. Special discussion: Based on the history and exam findings, there is no indication for further emergent testing or inpatient evaluation. I discussed with the patient/guardian the need to see the primary care provider for further evaluation of the symptoms. 05/29 15:52 Order name: Flu ca1 05/29 15:52 Order name: Strep ca1 05/29 16:20 Order name: Throat Culture EDLA Administered Medications: 17: Drug: Tylenol 1000 mg Route: PO; iw 17:56 Drug: Tessalon Perle 200 mg Route: PO; iw Disposition: 05/30 07:19 Co-signature as Attending Physician, Pradeep Ambriz MD I agree with the assessment and austen plan of care. Disposition: 05/29/19 17:31 Discharged to Home. Impression: Acute upper respiratory infection, unspecified. - Condition is Stable. - Discharge Instructions: Diarrhea, Adult, Upper Respiratory Infection, Adult. - Prescriptions for Medrol (Javi) 4 mg Oral Tablets, Dose Pack - take 1 tablet by ORAL route as directed - follow package instructions; 1 packet. Guaifenesin AC 10- 100 mg/5 mL Oral Liquid - take 10 milliliter by ORAL route every 4 hours As needed; 240 milliliter. - Work release form, Medication Reconciliation Form, Thank You Letter form. - Follow up: Private Physician; When: 2 - 3 days; Reason: Recheck today's complaints, Re-evaluation by your physician. - Problem is new. - Symptoms have improved. Signatures: Dispatcher [employer] Pradeep Potter MD MD cha Williams, Irene, ROD RN iw Lb Patel, COUNSELOR AIDE-C COUNSELOR AIDE-Cla1 Cassy Allen RN RN ca1 Corrections: (The following items were deleted from the chart) 05/29 17:56 17:31 05/29/2019 17:31 Discharged to Home. Impression: Acute upper respiratory iw infection, unspecified. Condition is Stable. Forms are Medication Reconciliation Form, Thank You Letter, Antibiotic Education, Prescription Opioid Use. Follow up: Private Physician; When: 2 - 3 days; Reason: Recheck today's complaints, Re-evaluation by your physician. Problem is new. Symptoms have improved. la1
[2019-05-29] MEDS ORDERED: BENZONATATE 100 MG CAP PO ONE (17:56)
[2019-05-29] MEDS ORDERED: ACETAMINOPHEN 500 MG TAB ONE (17:57)
[2019-05-29 18:07] VITALS: BP 114/75; TEMP 98.6; O2SAT 99
== END 2019-05-29 17:56 | disposition home or self-care (01) ==
LOC: ER 15:41
DX: J06.9 Acute upper respiratory infection, unspecified (principal)
CPT/HCPCS: 87070; 87081; 87804; 99283

== ENCOUNTER 2019-07-30 18:44 | Emergency (ER) | payer SELFPAY ==
--- NOTE | 2019-07-30 19:23 | ER ---
Nurse's Notes [facility] Name: Daniella Gallego Age: 29 yrs Sex: Female : 1990 Arrival Date: 07/30/2019 Time: 18:48 Bed Waiting Private MD: Diagnosis: Presentation: 07/29 18:54 Chief complaint: Patient states: Fever, cough, body aches x 1 day, took Tylenol at 1400 jl7 today. Coronavirus screen: Surgical mask placed on patient. Patient moved to private room, placed in contact and droplet isolation with eye protection until further assessment. Patient reports a cough. Patient denies shortness of breath or difficulty breathing. Patient reports a measured and/or subjective temperature greater than 100.4F. Patient denies travel on a cruise ship or to a country the [facility] currently lists as an affected area. Patient denies contact with known and/or suspected case of COVID-19. Ebola Screen: No symptoms or risks identified at this time. Initial Sepsis Screen: Does the patient meet any 2 criteria? No. Patient's initial sepsis screen is negative. Does the patient have a suspected source of infection? No. Patient's initial sepsis screen is negative. Risk Assessment: Do you want to hurt yourself or someone else? Patient reports no desire to harm self or others. Onset of symptoms was July 30, 2019 at 01:00. 18:54 Method Of Arrival: Ambulatory 7 18:54 Acuity: TANNER 4 jl7 Triage Assessment: 18:56 General: Appears in no apparent distress. uncomfortable, Behavior is calm, cooperative, jl7 appropriate for age. Pain: Denies pain. 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 - Social history:: Smoking status: Patient denies any tobacco usage or history of. Vital Signs: 18:54 BP 121 / 75; Pulse 78; Resp 19 S; Temp 97.5(TE); Pulse Ox 100% on R/A; Weight 77.11 kg jl7 (R); Pain 0/10; ED Course: 18:48 Patient arrived in ED. ag5 18:56 Triage completed. jl7 18:56 Arm band placed on right wrist. jl7 19:15 Reuben Sarabia MD is Attending Physician. tw4 Administered Medications: No medications were administered Outcome: 18:52 Eloped Triage Nurse Les reports the pt and her daughter who is also a patient went sg out to their vehicle to get a tablet for the daughter, have not been seen in the dept since. 19:22 Patient left the ED. sg Signatures: Jun Hoffman, RN RN Les Jorge RN RN jl7 Reuben Sarabia MD MD tw4 Haylee Mendes 5
[2019-07-30 19:26] VITALS: BP 121/75; TEMP 97.5; O2SAT 100
== END 2019-07-30 19:22 | disposition left against medical advice (07) ==
LOC: ER 18:44
DX: Z53.21 Procedure and treatment not carried out due to patient leaving prior to being seen by health care provider (principal)
CPT/HCPCS: 99281

== ENCOUNTER 2019-10-07 12:46 | Emergency (ER) | payer SELFPAY ==
[2019-10-07] MEDS ORDERED: MORPHINE 4 MG/ML SYR ONE (13:29)
[2019-10-07] MEDS ORDERED: ONDANSETRON 4 MG/2 ML VIAL ONE (13:29)
[2019-10-07] MEDS ORDERED: NA CHLORIDE 0.9% 1,000 ML ONE (13:29)
--- NOTE | 2019-10-07 13:34 | RAD REPORT ---
EXAM DESCRIPTION: RAD - Ankle Right 3 View - 10/07/2019 1:28 pm CLINICAL HISTORY: PAIN COMPARISON: No comparisons FINDINGS: Mild soft tissue swelling affects the ankle. No fracture or dislocation seen.
[2019-10-07 14:05] LABS: Absolute Lymphocytes (CBC) 1.5 K/uL (0.7-4.9); Basophils % 0.3 % (0-1.3); Hematocrit 38.7 % (36.0-45.0); Lymphocytes % 9.9 % (15.3-44.8); MPV 8.9 fL (7.6-11.3)
[2019-10-07 14:16] LABS: Potassium 3.5 mmol/L (3.5-5.1)
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
[2019-10-07] MEDS ORDERED: LORazepam 2 MG/ML VIAL ONE (15:09)
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
[2019-10-07] MEDS ORDERED: TETRACAINE HCL 0.5% 4ML OPTH ONE (16:12)
[2019-10-07] MEDS ORDERED: FLUORESCEIN SODIUM 1 MG/WRAP ONE (16:12)
[2019-10-07] MEDS ORDERED: AMOX/K CLAV 875 MG TAB ONE (16:46)
[2019-10-07] MEDS ORDERED: KETOROLAC 30 MG/ML INJ ONE (16:46)
[2019-10-07] MEDS ORDERED: CYCLOBENZAPRINE 10 MG TAB ONE (16:46)
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
[2019-10-07 18:21] VITALS: BP 124/62; TEMP 99.6; O2SAT 97
== END 2019-10-07 18:13 | disposition home or self-care (01) ==
LOC: EEVIPCON 12:46 → ER 12:46
DX: S00.93XA Contusion of unspecified part of head, initial encounter (principal); S00.33XA Contusion of nose, initial encounter; S00.411A Abrasion of right ear, initial encounter; M25.571 Pain in right ankle and joints of right foot; Y04.1XXA Assault by human bite, initial encounter; Y93.89 Activity, other specified; Y92.89 Other specified places as the place of occurrence of the external cause
CPT/HCPCS: 36415; 70450; 70491; 71260; 74177; 80048; 84703; 85025; 86850; 86900; 86901; 96374; 96375; 99285; J2405; J7030; Q9967

== ENCOUNTER 2020-07-16 13:52 | Emergency (ER) | payer SELFPAY ==
[2020-07-16 15:02] LABS: Urine Blood 2+ (NEG); Urine Glucose NEGATIVE (NEG); Urine Protein 2+ (NEG); Urine pH 5.5 (5.0-7.0)
[2020-07-16 15:05] LABS: Urine Bacteria >50 /HPF (<20); Urine RBC <5 /HPF (NONE SEEN)
[2020-07-16 15:50] LABS: Absolute Lymphocytes (CBC) 1.7 K/uL (0.7-4.9); Basophils % 0.3 % (0-1.3); Hematocrit 36.8 % (36.0-45.0); Lymphocytes % 8.9 % (15.3-44.8); MPV 8.8 fL (7.6-11.3); RBC Red Blood Cell Count 4.04 M/uL (3.86-4.86)
[2020-07-16] MEDS ORDERED: ONDANSETRON 4 MG/2 ML VIAL ONE ×2 (15:53→16:44)
[2020-07-16] MEDS ORDERED: ACETAMINOPHEN 500 MG TAB ONE (15:53)
[2020-07-16] MEDS ORDERED: NA CHLORIDE 0.9% 1,000 ML ONE ×2 (15:53→17:25)
[2020-07-16] MEDS ORDERED: MORPHINE 2 MG/ML SYR ONE ×2 (15:53→16:32)
[2020-07-16 16:10] LABS: ALT/SGPT 22 U/L (12-78); AST/SGOT 14 U/L (15-37); Albumin 3.5 g/dL (3.4-5.0); Alkaline Phosphatase 77 U/L (45-117); BUN Blood Urea Nitrogen 7 mg/dL (7-18); Bicarbonate 25 mmol/L (21-32); Bilirubin Direct 0.3 mg/dL (0-0.2); Bilirubin Total 0.9 mg/dL (0.2-1.0); Glucose Level 92 mg/dL (74-106); Lipase 41 U/L (73-393); Potassium 3.6 mmol/L (3.5-5.1); Sodium Level 137 mmol/L (136-145)
[2020-07-16 16:21] LABS: SARS-COV-2 RT PCR NEGATIVE (NEGATIVE)
[2020-07-16] MEDS ORDERED: CEFTRIAXONE/SWI 1gm 1 GM/10 ML SYR ONE (16:28)
--- NOTE | 2020-07-16 16:29 | RAD REPORT ---
EXAM DESCRIPTION: RAD - Chest Single View - 07/16/2020 3:20 pm CLINICAL HISTORY: COUGH COMPARISON: March 2011 TECHNIQUE: AP portable chest image was obtained 07/16/2020 3:20 pm . FINDINGS: Lung volumes are low. No peripheral mass consolidation. Low lung volumes, body habitus and slight respiratory motion cause accentuation of the interstitial pattern. No significant failure or volume overload suspected. Heart and vasculature are normal. No measurable pleural effusion and no pneumothorax. No acute bony abnormality seen. No acute aortic findings suspected. IMPRESSION: No acute cardiopulmonary process. No significant change from comparison study.
[2020-07-16 16:39] LABS: Blood Morphology Comment NOT SEEN (NOT SEEN); Platelet Estimate ADEQ; White Blood Cell Scan OK (OK)
[2020-07-16] MEDS ORDERED: IBUPROFEN 400 MG TAB ONE (17:26)
--- NOTE | 2020-07-16 18:06 | RAD REPORT ---
EXAM DESCRIPTION: CT - Abdomen Pelvis W Contrast - 07/16/2020 5:33 pm CLINICAL HISTORY: NAUSEA / VOMITING COMPARISON: No comparisons TECHNIQUE: Biphasic, helical CT imaging of the abdomen and pelvis was performed following 100 ml non -ionic IV contrast. No oral contrast given. All CT scans are performed using dose optimization technique as appropriate and may include automated exposure control or mA/KV adjustment according to patient size. FINDINGS: No suspicious findings in the lung bases. No focal liver lesion. Liver attenuation indicates a mild fatty infiltration. No portal vein abnormal ity. Pancreas and spleen show no suspicious findings. Gallbladder and biliary tree are also without s uspicious finding. Heterogeneous enhancement is present throughout the left renal parenchyma. Right kidney shows normal enhancement pattern. No hydronephrosis present. Patient has a punctate nonobstructing calculus in the lower pole of the left kidney. No suspicious mass lesion of either kidney. Bladder wall is slightly thickened but no vigorous enhancement seen. No bladder calculus or wall mass. Uterus and ovaries show no suspicious findings. No adrenal abnormalities. No dilated bowel loops or bowel wall thickening. No free air or pneumatosis. Free fluid in the cul d e sac is within physiologic limits. No hernia, mass or bulky lymphadenopathy. No suspicious bony findings. IMPRESSION: Mild to moderate severity left-side pyelonephritis. Torres of the urinary bladder are mildly prominent. A concurrent mild cystitis would be possible.
--- NOTE | 2020-07-16 18:39 | EDPHYS ---
Physician Documentation [facility] Name: Daniella Gallego Age: 30 yrs Sex: Female : 1990 Arrival Date: 07/16/2020 Time: 13:53 Bed 27 Private MD: ED Physician Stephon Alatorre HPI: 07/16 14:45 This 30 yrs old Female presents to ER via Ambulatory with complaints of Pain cp All Over, Nausea, Shortness Of Breath. 14:45 The patient reports fever, that was measured at 102.3 degrees Fahrenheit. Onset: The cp symptoms/episode began/occurred 3 day(s) ago. 14:45 Associated signs and symptoms: Pertinent positives: backache, cough, earache, headache, cp nausea, shortness of breath, vomiting, Pertinent negatives: diarrhea. Severity of symptoms: in the emergency department the symptoms are unchanged despite home interventions. 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 - Social history:: Smoking status: Patient denies any tobacco usage or history of. ROS: 14:55 Eyes: Negative for injury, pain, redness, and discharge. cp 14:55 Constitutional: Positive for body aches, chills, fever. 14:55 Respiratory: Positive for cough, Negative for shortness of breath, wheezing. 14:55 Abdomen/GI: Positive for nausea, vomiting, Negative for diarrhea, constipation. 14:55 Back: Positive for flank pain. 14:55 : Positive for urinary symptoms. 14:55 Neuro: Negative for altered mental status, weakness. 14:55 All other systems are negative. cp Exam: 15:00 Constitutional: The patient appears in no acute distress, alert, awake, non-toxic, well cp developed, well nourished, obviously ill, uncomfortable. 15:00 Head/Face: Normocephalic, atraumatic. cp 15:00 Eyes: Periorbital structures: appear normal, Conjunctiva: normal, no exudate, no injection, Sclera: no appreciated abnormality, Lids and lashes: appear normal, bilaterally. 15:00 ENT: External ear(s): are unremarkable, Nose: is normal, Mouth: Lips: moist, Oral mucosa: moist, Posterior pharynx: Airway: no evidence of obstruction, patent, Tonsils: no enlargement, no exudate, erythema, that is moderate, exudate, is not appreciated. 15:00 Neck: ROM/movement: is normal, is supple, no meningismus, no nuchal rigidity. 15:00 Chest/axilla: Inspection: normal, Palpation: is normal, no crepitus, no tenderness. 15:00 Cardiovascular: Rate: tachycardic, Rhythm: regular. 15:00 Respiratory: the patient does not display signs of respiratory distress, Respirations: normal, no use of accessory muscles, no retractions, labored breathing, is not present, Breath sounds: are clear throughout, no decreased breath sounds, no stridor, no wheezing. 15:00 Abdomen/GI: Inspection: abdomen appears normal, Bowel sounds: active, all quadrants, Palpation: soft, in all quadrants, mild abdominal tenderness, in the right lower quadrant and left lower quadrant, rebound tenderness, is not appreciated, voluntary guarding, is not appreciated, involuntary guarding, is not appreciated. Vital Signs: 13:57 BP 143 / 80; Pulse 136; Resp 19; Temp 100.7; Pulse Ox 100% ; Weight 77.11 kg; Height 5 ll1 ft. 4 in. (162.56 cm); Pain 9/10; 14:19 BP 121 / 71; Pulse 125; Resp 18 S; Pulse Ox 98% on R/A; ca1 15:15 BP 105 / 64; Pulse 116; Resp 16 S; Pulse Ox 100% on R/A; ca1 16:30 BP 98 / 64; Pulse 114; Resp 16 S; Temp 100.9(O); Pulse Ox 97% on R/A; ca1 17:15 BP 98 / 64; Pulse 110; Resp 21 S; Pulse Ox 98% on R/A; ca1 17:49 BP 101 / 76; Pulse 103; Resp 18 S; Temp 99.1(O); Pulse Ox 99% on R/A; ca1 18:16 BP 113 / 74; Pulse 95; Resp 18 S; Pulse Ox 99% on R/A; ca1 13:57 Body Mass Index 29.18 (77.11 kg, 162.56 cm) ll1 MDM: 14:30 Patient medically screened. cp 15:00 Differential diagnosis: bronchitis, pneumonia UTI, gastroenteritis, meningitis. 18:37 Data reviewed: vital signs, nurses notes, lab test result(s), radiologic studies, CT cp scan, plain films. 18:37 Counseling: I had a detailed discussion with the patient and/or guardian regarding: the cp historical points, exam findings, and any diagnostic results supporting the discharge/admit diagnosis, lab results, radiology results, to return to the emergency department if symptoms worsen or persist or if there are any questions or concerns that arise at home. Response to treatment: the patient's symptoms have markedly improved after treatment, patient is well hydrated. Fever resolved, pain and nausea improved, vomiting resolved. Will discharge to home for continued monitoring. 07/16 14:36 Order name: Urine Microscopic Only; Complete Time: 15:38 07/16 15:38 Interpretation: Normal except: UWBC 20-50; UBACT >50. 07/16 14:51 Order name: Strep; Complete Time: 15:38 ca1 07/16 14:54 Order name: Urine Dipstick--Ancillary (enter results); Complete Time: 15:38 mt 07/16 15:39 Interpretation: Normal except: UKET 2+; UBLD 2+; UPROT 2+; UESTR 1+. 07/16 14:54 Order name: Urine --Ancillary (enter results); Complete Time: 15:38 mt 07/16 15:05 Order name: Basic Metabolic Panel; Complete Time: 16:16 07/16 16:16 Interpretation: Reviewed. 07/16 15:05 Order name: CBC with Diff; Complete Time: 16:52 07/16 16:03 Interpretation: Normal except: WBC 19.70; MINI% 80.5; LYM% 8.9; NEUT A 15.9; MNA 2.0. 07/16 15:05 Order name: Hepatic Function; Complete Time: 16:16 07/16 16:16 Interpretation: Normal except: AST 14; BILID 0.3; GLOB 4.5; A/G 0.8. 07/16 15:05 Order name: Lipase; Complete Time: 16:16 07/16 15:06 Order name: Urine Culture [facility] 07/16 15:26 Order name: Throat Culture [facility] 07/16 16:22 Order name: COVID-19/FLU A+B; Complete Time: 16:52 EDMS 07/16 16:39 Order name: CBC Smear Scan; Complete Time: 16:52 EDMI 07/16 14:36 Order name: Urine Dipstick-Ancillary (obtain specimen); Complete Time: 14:51 cp 07/16 14:36 Order name: Urine Test (obtain specimen); Complete Time: 14:51 cp 07/16 15:05 Order name: IV Saline Lock; Complete Time: 15:39 cp 07/16 15:05 Order name: Labs collected and sent; Complete Time: 15:39 cp 07/16 15:05 Order name: XRAY Chest (1 view); Complete Time: 16:52 cp 07/16 15:05 Order name: CT Abd/Pelvis - IV Contrast Only; Complete Time: 18:08 cp 07/16 18:09 Interpretation: Report reviewed. cp Administered Medications: 15:20 Drug: Tylenol 1000 mg Route: PO; ca1 17:14 Follow up: Response: No adverse reaction; Temperature is increased ca1 15:39 Drug: NS 0.9% 1000 ml Route: IV; Rate: 1 bolus; Site: left antecubital; ca1 17:00 Follow up: Response: No adverse reaction; IV Status: Completed infusion; IV Intake: ca1 1000ml 15:40 Drug: Zofran (Ondansetron) 4 mg Route: IVP; Site: left antecubital; ca1 16:30 Follow up: Response: No adverse reaction; Nausea unchanged ca1 17:12 Follow up: Response: No adverse reaction; Nausea is decreased; Vomiting decreased ca1 15:42 Drug: morphine 2 mg {Note: rass 0.} Route: IVP; Site: left antecubital; ca1 16:14 Drug: Rocephin - (cefTRIAXone) 1 grams Route: IVPB; Infused Over: 30 mins; Site: left ca1 antecubital; 16:25 Follow up: IV Status: Completed infusion ca1 17:13 Follow up: Response: Adverse reaction, Physician notified; Adverse reaction, Physician ca1 notified. PT c/o Nausea/Vomiting. HR increased to 150. 16:30 Drug: Zofran (Ondansetron) 4 mg Route: IVP; Site: left antecubital; ca1 17:13 Follow up: Response: No adverse reaction; Nausea is decreased; Vomiting decreased ca1 16:32 Drug: morphine 2 mg {Note: rass 1.} Route: IVP; Site: left antecubital; ca1 16:57 Follow up: Response: No adverse reaction; Pain is decreased; RASS: Alert and Calm (0) ca1 17:12 Follow up: Response: No adverse reaction; Pain is decreased; RASS: Alert and Calm (0) ca1 17:12 Drug: NS 0.9% 1000 ml Route: IV; Rate: 1 bolus; Site: left antecubital; ca1 18:29 Follow up: Response: No adverse reaction; IV Status: Completed infusion; IV Intake: ca1 1000ml 17:13 Drug: Ibuprofen 800 mg Route: PO; ca1 17:49 Follow up: Response: No adverse reaction; Temperature is decreased ca1 Disposition: 07/16/20 18:38 Discharged to Home. Impression: Otitis media, unspecified, bilateral, Acute tubulo-interstitial nephritis. - Condition is Stable. - Discharge Instructions: Otitis Media, Adult, Pyelonephritis, Adult. - Prescriptions for Zofran 4 mg Oral Tablet - take 1 tablet by ORAL route every 12 hours As needed; 20 tablet. Tramadol 50 mg Oral Tablet - take 1 tablet by ORAL route every 8 hours as needed; 12 tablet. Bactrim DS 800- 160 mg Oral Tablet - take 1 tablet by ORAL route every 12 hours for 10 days; 20 tablet. - Medication Reconciliation Form, Thank You Letter, Antibiotic Education, Prescription Opioid Use form. - Follow up: Private Physician; When: 1 - 2 days; Reason: Recheck today's complaints. - Problem is new. - Symptoms have improved. Addendum: 07/17/2020 21:44 Co-signature as Attending Physician, Stephon Alatorre MD Available for consultation at p s1 all times. Did not see or evaluate patient unless otherwise noted. . Signatures: Dispatcher [employer] Destiny Emery RN RN Pradeep Lr PA PA cp Singer, Phillip, MD MD ps1 Cassy Allen RN RN ca1 Dayanna Chaudhary RN RN ll1 Corrections: (The following items were deleted from the chart) 07/16 14:02 13:55 PSHx: None; sv ll1 15:33 14:51 CORONAVIRUS+MR.LAB.BRZ ordered. EDMS EDMS 15:34 14:51 Influenza Screen (A \T\ B)+BA.LAB.BRZ ordered. EDMS EDMS 16:03 16:03 Normal except: WBC 19.70; MINI% 80.5; LYM% 8.9; NEUT A 15.9. cp cp 17:16 13:55 Allergies: No Known Drug Allergies; sv ca1 18:50 18:38 07/16/2020 18:38 Discharged to Home. Impression: Otitis media, unspecified, ca1 bilateral; Acute tubulo-interstitial nephritis. Condition is Stable. Forms are Medication Reconciliation Form, Thank You Letter, Antibiotic Education, Prescription Opioid Use. Follow up: Private Physician; When: 1 - 2 days; Reason: Recheck today's complaints. Problem is new. Symptoms have improved. cp
--- NOTE | 2020-07-16 18:39 | ER ---
Nurse's Notes [facility] Name: Daniella Gallego Age: 30 yrs Sex: Female : 1990 Arrival Date: 07/16/2020 Time: 13:53 Bed 27 Private MD: Diagnosis: Otitis media, unspecified, bilateral;Acute tubulo-interstitial nephritis Presentation: 07/16 13:57 Chief complaint: Patient states: R ear pain, MICHAEL, fever, fatigue, weakness, body aches, ll1 nausea for 3 days. N/V for 1 day. No appetite. Fever 102.3 at home last night. Coronavirus screen: Client denies travel out of the [place] in the last 14 days. chills, difficulty breathing, fatigue, fever, headache, muscle pain, nausea, shaking with chills, shortness of breath, vomiting. Client presents with at least one sign or symptom that may indicate coronavirus-19. Standard/surgical mask placed on the client. Ebola Screen: Patient denies travel to an Ebola-affected area in the 21 days before illness onset. Initial Sepsis Screen: Does the patient meet any 2 criteria? HR > 90 bpm. No. Patient's initial sepsis screen is negative. Does the patient have a suspected source of infection? Yes: Productive cough/pneumonia. Risk Assessment: Do you want to hurt yourself or someone else? Patient reports no desire to harm self or others. Onset of symptoms was July 14, 2020. 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 - Social history:: Smoking status: Patient denies any tobacco usage or history of. Screenin:19 Abuse screen: Denies threats or abuse. Denies injuries from another. Nutritional ca1 screening: No deficits noted. Tuberculosis screening: No symptoms or risk factors identified. Fall Risk None identified. Assessment: 14:19 General: Appears in no apparent distress. ill, Behavior is cooperative, appropriate for ca1 age, crying, Reports fever for 2-3 days, feeling ill for 2-3 days, fatigue for 2-3 days. Pain: Complains of pain in all over. Neuro: Level of Consciousness is awake, alert, obeys commands, Oriented to person, place, time, situation. Cardiovascular: Heart tones S1 S2 present Capillary refill < 3 seconds Patient's skin is warm and dry. Rhythm is sinus tachycardia. Respiratory: Reports cough that is Airway is patent Respiratory effort is even, unlabored, Respiratory pattern is regular, symmetrical, Breath sounds are clear bilaterally. GI: Abdomen is flat, non-distended, Bowel sounds present X 4 quads. Abd is soft and non tender X 4 quads. Reports nausea, vomiting. : No signs and/or symptoms were reported regarding the genitourinary system. EENT: Ear canal clear on left ear and right ear Reports pain in right ear. Derm: Skin is intact, is healthy with good turgor, Skin is pink, warm \T\ dry. Musculoskeletal: Circulation, motion, and sensation intact. Capillary refill < 3 seconds. 15:18 Reassessment: Patient appears in no apparent distress at this time. Patient and/or ca1 family updated on plan of care and expected duration. Pain level reassessed. Patient is alert, oriented x 3, equal unlabored respirations, skin warm/dry/pink. 16:15 Reassessment: Patient appears in no apparent distress at this time. Patient and/or ca1 family updated on plan of care and expected duration. Pain level reassessed. Patient is alert, oriented x 3, equal unlabored respirations, skin warm/dry/pink. 16:35 Reassessment: Pt c/o nausea after Rocephin administration. Vomited, HR increased, RR ca1 increased. Notified provider. Dayron VALENTIN ordered. PT instructed on breathing techniques. 17:15 Reassessment: Patient appears in no apparent distress at this time. Patient and/or ca1 family updated on plan of care and expected duration. Pain level reassessed. Patient is alert, oriented x 3, equal unlabored respirations, skin warm/dry/pink. General: Appears in no apparent distress. comfortable, Behavior is calm, cooperative, appropriate for age. 18:16 Reassessment: Patient appears in no apparent distress at this time. Patient is alert, ca1 oriented x 3, equal unlabored respirations, skin warm/dry/pink. Patient states feeling better. Patient states symptoms have improved. 18:49 Reassessment: Patient appears in no apparent distress at this time. Patient is alert, ca1 oriented x 3, equal unlabored respirations, skin warm/dry/pink. Vital Signs: 13:57 BP 143 / 80; Pulse 136; Resp 19; Temp 100.7; Pulse Ox 100% ; Weight 77.11 kg; Height 5 ll1 ft. 4 in. (162.56 cm); Pain 9/10; 14:19 BP 121 / 71; Pulse 125; Resp 18 S; Pulse Ox 98% on R/A; ca1 15:15 BP 105 / 64; Pulse 116; Resp 16 S; Pulse Ox 100% on R/A; ca1 16:30 BP 98 / 64; Pulse 114; Resp 16 S; Temp 100.9(O); Pulse Ox 97% on R/A; ca1 17:15 BP 98 / 64; Pulse 110; Resp 21 S; Pulse Ox 98% on R/A; ca1 17:49 BP 101 / 76; Pulse 103; Resp 18 S; Temp 99.1(O); Pulse Ox 99% on R/A; ca1 18:16 BP 113 / 74; Pulse 95; Resp 18 S; Pulse Ox 99% on R/A; ca1 13:57 Body Mass Index 29.18 (77.11 kg, 162.56 cm) ll1 ED Course: 13:53 Patient arrived in ED. ds1 13:54 Arm band placed on. sv 14:01 Triage completed. ll1 14:11 Cassy Allen, RN is Primary Nurse. ca1 14:19 Patient has correct armband on for positive identification. Bed in low position. Call ca1 light in reach. Side rails up X 1. Pulse ox on. NIBP on. 14:28 Pradeep Crump PA is PHCP. cp 14:28 Stephon Alatorre MD is Attending Physician. cp 15:07 Strep Sent. ca1 15:21 XRAY Chest (1 view) In Process Unspecified. EDMS 15:38 Inserted saline lock: 20 gauge in left antecubital area, using aseptic technique. Blood dh4 collected. Missed attempt(s): 20 gauge in right antecubital area. 17:33 CT Abd/Pelvis - IV Contrast Only In Process Unspecified. EDMS 18:17 No provider procedures requiring assistance completed. ca1 18:49 IV discontinued, intact, bleeding controlled, No redness/swelling at site. Pressure ca1 dressing applied. Administered Medications: 15:20 Drug: Tylenol 1000 mg Route: PO; ca1 17:14 Follow up: Response: No adverse reaction; Temperature is increased ca1 15:39 Drug: NS 0.9% 1000 ml Route: IV; Rate: 1 bolus; Site: left antecubital; ca1 17:00 Follow up: Response: No adverse reaction; IV Status: Completed infusion; IV Intake: ca1 1000ml 15:40 Drug: Zofran (Ondansetron) 4 mg Route: IVP; Site: left antecubital; ca1 16:30 Follow up: Response: No adverse reaction; Nausea unchanged ca1 17:12 Follow up: Response: No adverse reaction; Nausea is decreased; Vomiting decreased ca1 15:42 Drug: morphine 2 mg {Note: rass 0.} Route: IVP; Site: left antecubital; ca1 16:14 Drug: Rocephin - (cefTRIAXone) 1 grams Route: IVPB; Infused Over: 30 mins; Site: left ca1 antecubital; 16:25 Follow up: IV Status: Completed infusion ca1 17:13 Follow up: Response: Adverse reaction, Physician notified; Adverse reaction, Physician ca1 notified. PT c/o Nausea/Vomiting. HR increased to 150. 16:30 Drug: Zofran (Ondansetron) 4 mg Route: IVP; Site: left antecubital; ca1 17:13 Follow up: Response: No adverse reaction; Nausea is decreased; Vomiting decreased ca1 16:32 Drug: morphine 2 mg {Note: rass 1.} Route: IVP; Site: left antecubital; ca1 16:57 Follow up: Response: No adverse reaction; Pain is decreased; RASS: Alert and Calm (0) ca1 17:12 Follow up: Response: No adverse reaction; Pain is decreased; RASS: Alert and Calm (0) ca1 17:12 Drug: NS 0.9% 1000 ml Route: IV; Rate: 1 bolus; Site: left antecubital; ca1 18:29 Follow up: Response: No adverse reaction; IV Status: Completed infusion; IV Intake: ca1 1000ml 17:13 Drug: Ibuprofen 800 mg Route: PO; ca1 17:49 Follow up: Response: No adverse reaction; Temperature is decreased ca1 Intake: 17:00 IV: 1000ml; Total: 1000ml. ca1 18:29 IV: 1000ml; Total: 2000ml. ca1 Outcome: 18:38 Discharge ordered by MD. cp 18:49 Discharged to home ambulatory, with family. ca1 18:49 Condition: stable 18:49 Discharge instructions given to patient, family, Instructed on discharge instructions, follow up and referral plans. no drinking with medication, no driving heavy equipment, medication usage, Demonstrated understanding of instructions, follow-up care, medications, Prescriptions given X 3. 18:50 Patient left the ED. ca1 Addendum: 07/19/2020 07:21 Addendum: Culture Results: Positive urine culture. No further action required. Bacteria e b sensitive to prescribed antibiotic. Signatures: Dispatcher [employer] EDMS Destiny Lara RN RN Latia Mixon ds1 Pradeep Crump PA PA cp Botello, Elizabeth eb Acob, Cheryl, RN RN ca1 Evangelina, Devon 4 Dayanna Chaudhary RN RN ll1 Corrections: (The following items were deleted from the chart) 07/16 14:02 13:55 PSHx: None; ll1 15:33 15:07 CORONAVIRUS+MR.LAB.BRZ drawn and sent. ca1 EDMS 15:34 15:07 Influenza Screen (A \T\ B)+BA.LAB.BRZ drawn and sent. ca1 EDMS 15:49 15:48 BP 105 / 64; Pulse 116bpm; Resp 16bpm; Spontaneous; Pulse Ox 100% RA; ca1 ca1 17:16 13:55 Allergies: No Known Drug Allergies; sv ca1 17:50 16:30 BP 98 / 64; Pulse 114bpm; Resp 16bpm; Spontaneous; Pulse Ox 97% RA; Temp 100.9F ca1 Temporal; ca1 17:50 17:49 Pulse 103bpm; Resp 18bpm; Spontaneous; Pulse Ox 99% RA; Temp 99.1F Oral; ca1 ca1
[2020-07-16 19:04] VITALS: TEMP 99.1; O2SAT 99
[2020-07-16 19:05] VITALS: BP 113/74
== END 2020-07-16 18:50 | disposition home or self-care (01) ==
LOC: ER 13:52
DX: N00.9 Acute nephritic syndrome with unspecified morphologic changes (principal); H66.93 Otitis media, unspecified, bilateral; Z20.822 Contact with and (suspected) exposure to COVID-19
CPT/HCPCS: 0240U; 36415; 71045; 74177; 80048; 80076; 81003; 81015; 81025; 83690; 85025; 87070; 87077; 87081; 87086; 87088; 87186; 96361; 96374; 96375; 99284; J0696; J2270; J2405; J7030; Q9967

== ENCOUNTER 2020-12-12 11:48 | Emergency (ER) | payer SELFPAY ==
--- NOTE | 2020-12-12 15:28 | ER ---
Nurse's Notes [facility] Name: Daniella Gallego Age: 30 yrs Sex: Female : 1990 Arrival Date: 12/12/2020 Time: 11:51 Bed Waiting Private MD: Diagnosis: Presentation: 12/12 13:12 Chief complaint: Patient states: pt had her "nails done about 3 weeks ago and has been tr6 getting her nails done since she was in middle school. 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 her job sent her to get it checked out because if it was caused by the gloves then they will pay for it.". Coronavirus screen: At this time, unable to obtain information related to travel outside the [place] Ebola Screen: No symptoms or risks identified at this time. Initial Sepsis Screen: Does the patient meet any 2 criteria? No. Patient's initial sepsis screen is negative. Does the patient have a suspected source of infection? No. Patient's initial sepsis screen is negative. Risk Assessment: Do you want to hurt yourself or someone else? Patient reports no desire to harm self or others. Onset of symptoms is unknown. 13:12 Method Of Arrival: Ambulatory tr6 13:12 Acuity: TANNER 4 tr6 Triage Assessment: 13:15 General: Appears in no apparent distress. uncomfortable, well groomed, Behavior is tr6 calm, cooperative, appropriate for age. Pain: Complains of pain in cuticles around each finger nail. EENT: No deficits noted. Neuro: No deficits noted. Cardiovascular: No deficits noted. Respiratory: No deficits noted. GI: No deficits noted. : No deficits noted. Derm: scaling/ peeling around each cuticle and under finger nails. Musculoskeletal: No deficits noted. Historical: - Allergies: 13:14 Rocephin; tr6 - Home Meds: 13:14 None [Active]; tr6 - PMHx: 13:14 None; tr6 - PSHx: 13:14 section; tr6 - Immunization history:: Adult Immunizations up to date, Client reports receiving the 2nd dose of the Covid vaccine. - Social history:: Smoking status: unknown. Screenin:16 Abuse screen: Denies threats or abuse. Denies injuries from another. Nutritional tr6 screening: No deficits noted. Tuberculosis screening: No symptoms or risk factors identified. Fall Risk None identified. Vital Signs: 13:12 BP 129 / 93; Pulse 72; Resp 18; Temp 98.7(O); Pulse Ox 100% on R/A; tr6 ED Course: 11:51 Patient arrived in ED. mr 13:14 Triage completed. tr6 Administered Medications: No medications were administered Outcome: 15:28 Patient left the ED. tr6 Signatures: Alaina Cramer Tiffany, RN RN tr6
[2020-12-12 15:35] VITALS: O2SAT 100
[2020-12-12 15:41] VITALS: BP 141/96; TEMP 98.6
== END 2020-12-12 15:28 | disposition left against medical advice (07) ==
LOC: ER 11:48
DX: Z53.21 Procedure and treatment not carried out due to patient leaving prior to being seen by health care provider (principal)
CPT/HCPCS: 99281

== ENCOUNTER 2021-01-12 09:10 | Emergency (ER) | payer SELFPAY ==
--- NOTE | 2021-01-12 10:25 | RAD REPORT ---
EXAM DESCRIPTION: RAD - Chest Single View - 01/12/2021 10:18 am CLINICAL HISTORY: COUGH COMPARISON: Chest Single View dated 07/16/2020; CHEST PA AND LAT 2 VIEW dated 03/15/2011 FINDINGS: Lines: None. Lungs: No evidence of edema or pneumonia. Low lung volumes. Pleural: No significant pleural effusions or pneumothorax. Cardiac: Low lung volumes accentuates the cardiac silhouette. Bones: No acute fractures. Other: IMPRESSION: No acute cardiopulmonary disease.
[2021-01-12] MEDS ORDERED: ACETAMINOPHEN 325 MG TABLET ONE (11:01)
[2021-01-12 11:26] LABS: SARS-COV-2 RT PCR POSITIVE (NEGATIVE)
--- NOTE | 2021-01-12 11:40 | ER ---
Nurse's Notes [facility] Name: Daniella Gallego Age: 30 yrs Sex: Female : 1990 Arrival Date: 01/12/2021 Time: 09:11 Bed 16 Private MD: Diagnosis: SARS-associated coronavirus as the cause of diseases classified elsewhere Presentation: 01/12 09:30 Chief complaint: Patient states: vomiting and diarrhea since yesterday, has ear iw infection, has fever, cough started yesterday and has pain in her chest when she coughs. Coronavirus screen: Client presents with at least one sign or symptom that may indicate coronavirus-19. Ebola Screen: Patient negative for fever greater than or equal to 101.5 degrees Fahrenheit, and additional compatible Ebola Virus Disease symptoms Patient denies exposure to infectious person. Patient denies travel to an Ebola-affected area in the 21 days before illness onset. No symptoms or risks identified at this time. Initial Sepsis Screen: Does the patient meet any 2 criteria? No. Patient's initial sepsis screen is negative. Does the patient have a suspected source of infection? No. Patient's initial sepsis screen is negative. Risk Assessment: Do you want to hurt yourself or someone else? Patient reports no desire to harm self or others. Onset of symptoms was January 11, 2021. 09:30 Method Of Arrival: Ambulatory iw 09:30 Acuity: TANNER 3 iw Triage Assessment: 10:43 General: Appears uncomfortable. Pain: Complains of pain in generalized body aches Pain kh1 does not radiate. Pain currently is 10 out of 10 on a pain scale. Quality of pain is described as aching, Pain began 2-3 days ago. Respiratory: Reports shortness of breath at rest cough that is productive, labored breathing since 01/10/2021. 11:00 General: Behavior is calm, cooperative, crying. kh1 Historical: - Allergies: 09:31 Rocephin; iw - Home Meds: 09:31 None [Active]; iw - PMHx: 09:31 None; iw - PSHx: 09:31 section; iw - Immunization history:: Client reports having NOT received the Covid vaccine. - Social history:: Smoking status: Patient uses street drugs. - Family history:: not pertinent. - Hospitalizations: : No recent hospitalization is reported. Screenin:46 Abuse screen: Denies threats or abuse. Nutritional screening: No deficits noted. kh1 Tuberculosis screening: No symptoms or risk factors identified. Fall Risk None identified. Assessment: 10:46 Cardiovascular: Reports nausea, shortness of breath, vomiting. Respiratory: Respiratory kh1 effort is labored, 11:00 Respiratory: Airway is patent. kh1 Vital Signs: 09:30 BP 140 / 80; Pulse 88; Resp 24; Temp 99.1; Pulse Ox 100% on R/A; Weight 80.29 kg; iw Height 5 ft. 4 in. (162.56 cm); 10:45 BP 102 / 67; Pulse 78; Resp 18; Temp 97.6(TE); Pulse Ox 94% on R/A; kh1 09:30 Body Mass Index 30.38 (80.29 kg, 162.56 cm) ED Course: 09:11 Patient arrived in ED. as 09:31 Triage completed. iw 09:32 Arm band placed on. iw 09:38 Steffen Gerard MD is Attending Physician. rn 10:18 XRAY Chest (1 view) In Process Unspecified. EDMS 10:33 Rosa Malone is Primary Nurse. kh1 10:42 Throat Culture Sent. kh1 12:22 No provider procedures requiring assistance completed. Patient did not have IV access kh1 during this emergency room visit. Administered Medications: 10:00 Drug: Tylenol 650 mg Route: PO; kh1 Outcome: 11:40 Discharge ordered by . rn 12:42 Patient left the ED. Signatures: Dispatcher [employer] Hortencia Castillo Irene, RN RN Steffen Gerard MD MD rn Harris, Kecia 1
--- NOTE | 2021-01-12 11:40 | EDPHYS ---
Physician Documentation [facility] Name: Daniella Gallego Age: 30 yrs Sex: Female : 1990 Arrival Date: 01/12/2021 Time: 09:11 Bed 16 Private MD: ED Physician Steffen Gerard HPI: 01/12 09:55 This 30 yrs old Female presents to ER via Ambulatory with complaints of rn Shortness Of Breath, Cough, Fever. 09:55 The patient has shortness of breath at rest. Onset: The symptoms/episode began/occurred rn 2 day(s) ago. Duration: The symptoms are intermittent. The patient's shortness of breath is aggravated by coughing, light activity, is alleviated by nothing. Associated signs and symptoms: Pertinent positives: non-productive cough, dizziness, fever, Pertinent negatives: hemoptysis, loss of consciousness. Severity of symptoms: At their worst the symptoms were mild in the emergency department the symptoms are unchanged. The patient has not experienced similar symptoms in the past. The patient has not recently seen a physician. And reports 2 days of subjective fever, cough, loss of taste and smell, diarrhea, fatigue and myalgias. Reports several contacts with Covid at work. Does state was tested last week and was negative but was prior to onset of symptoms. Denies any chronic medical problems or smoking activity.. Historical: - Allergies: 09: Rocephin; iw - Home Meds: : None [Active]; iw - PMHx: 09: None; iw - PSHx: 09:31 section; iw - Immunization history:: Client reports having NOT received the Covid vaccine. - Social history:: Smoking status: Patient uses street drugs. - Family history:: not pertinent. - Hospitalizations: : No recent hospitalization is reported. ROS: 09:55 Constitutional: Positive for fever and chills Eyes: Negative for injury, pain, redness, rn and discharge, ENT: Positive for congestion and sore throat Cardiovascular: Negative for chest pain, palpitations, and edema, Respiratory: Positive for cough Abdomen/GI: Positive for diarrhea negative for abdominal pain MS/Extremity: Negative for injury and deformity, Skin: Negative for injury, rash, and discoloration, Neuro: Positive for headache and generalized weakness 09:55 All other systems are negative. rn Exam: 09:55 Constitutional: This is a well developed, well nourished patient who is awake, alert, rn and in no acute distress. Head/Face: Normocephalic, atraumatic. Eyes: Pupils equal round and reactive to light, extra-ocular motions intact. Lids and lashes normal. Conjunctiva and sclera are non-icteric and not injected. Cornea within normal limits. Periorbital areas with no swelling, redness, or edema. ENT: Moist mucous membranes, no stridor Cardiovascular: Regular rate and rhythm. No pulse deficits. Respiratory: No increased work of breathing, no retractions or nasal flaring. Abdomen/GI: Soft, non-tender Skin: Warm, dry MS/ Extremity: Pulses equal, no cyanosis. Neuro: Awake and alert, GCS 15 Vital Signs: 09:30 BP 140 / 80; Pulse 88; Resp 24; Temp 99.1; Pulse Ox 100% on R/A; Weight 80.29 kg; iw Height 5 ft. 4 in. (162.56 cm); 10:45 BP 102 / 67; Pulse 78; Resp 18; Temp 97.6(TE); Pulse Ox 94% on R/A; kh1 09:30 Body Mass Index 30.38 (80.29 kg, 162.56 cm) iw MDM: 09:38 Patient medically screened. rn 11:37 Differential diagnosis: Anxiety Reaction Bronchitis pneumonia, Pneumothorax Covid. Data rn reviewed: vital signs, nurses notes. 11:38 Data interpreted: crime specialist: rate is 78 beats/min, rhythm is normal sinus rhythm, rn regular, with no ectopy, Interpretation: normal rate, normal rhythm, Pulse oximetry: on room air is 95 %. Interpretation: acceptable. Test interpretation: by ED physician or midlevel provider: plain radiologic studies, Chest x-ray without pneumonia or pneumothorax. Counseling: I had a detailed discussion with the patient and/or guardian regarding: the historical points, exam findings, and any diagnostic results supporting the discharge/admit diagnosis, lab results, radiology results, the need for outpatient follow up, to return to the emergency department if symptoms worsen or persist or if there are any questions or concerns that arise at home. Response to treatment: the patient's symptoms have mildly improved after treatment, and as a result, I will discharge patient. Special discussion: I discussed with the patient/guardian in detail that at this point there is no indication for admission to the hospital. It is understood, however, that if the symptoms persist or worsen the patient needs to return immediately for re-evaluation. Based on the history and exam findings, there is no indication for further emergent testing or inpatient evaluation. I discussed with the patient/guardian the need to see the primary care provider for further evaluation of the symptoms. 11:38 ED course: Patient's vitals have improved, no new oxygen requirement, chest x-ray rn without evidence of pneumonia, Covid positive, will DC home with return precautions.. 01/12 09:46 Order name: XRAY Chest (1 view); Complete Time: 10:32 rn 01/12 09:46 Order name: Strep; Complete Time: 10:32 rn 01/12 10:27 Order name: Throat Culture EDMS 01/12 11:27 Order name: COVID-19/FLU A+B; Complete Time: 11:37 EDMS Administered Medications: 10:00 Drug: Tylenol 650 mg Route: PO; kh1 Disposition Summary: 01/12/21 11:40 Discharge Ordered Location: Home rn Problem: new rn Symptoms: have improved rn Condition: Stable rn Diagnosis - SARS-associated coronavirus as the cause of diseases classified elsewhere rn Followup: rn - With: Private Physician - When: As needed - Reason: Recheck today's complaints, Re-evaluation by your physician Discharge Instructions: - Discharge Summary Sheet rn - COVID-19 rn - 10 Things You Can Do to Manage Your COVID-19 Symptoms at Home - [facility] rn - Viral Illness, Adult rn - Prevent the Spread of COVID-19 if You Are Sick - [facility] rn Forms: - Medication Reconciliation Form rn - Thank You Letter rn - Antibiotic internet marketer - Prescription Opioid Use rn Signatures: Dispatcher [employer] EDMS Kandice Frederick RN Steffen Oakley MD MD rn Harris, Kecia 1 Corrections: (The following items were deleted from the chart) 10: 09:46 CORONAVIRUS+MR.LAB.BRZ ordered. EDMS EDMS 10: 09:46 Influenza Screen (A \T\ B)+BA.LAB.BRZ ordered. EDMS EDMS
[2021-01-12 12:50] VITALS: BP 102/67; TEMP 97.6; O2SAT 94
== END 2021-01-12 12:42 | disposition home or self-care (01) ==
LOC: ER 09:10
DX: U07.1 COVID-19 (principal); Z88.3 Allergy status to other anti-infective agents
CPT/HCPCS: 0240U; 71045; 87070; 87081; 99283

== ENCOUNTER 2022-04-11 17:13 | Emergency (ER) | payer OTHER ==
[2022-04-11 17:48] LABS: Urine Blood 2+ (Negative); Urine Glucose Negative (Negative); Urine Protein 2+ (Negative); Urine Specific Gravity >=1.030 (1.005-1.030)
[2022-04-11] MEDS ORDERED: NA CHLORIDE 0.9% 1,000 ML ONE (17:55)
[2022-04-11] MEDS ORDERED: MORPHINE 4 MG/ML SYR ONE ×2 (17:55→20:04)
[2022-04-11 18:22] LABS: Urine Crystals Unidentified Few /HPF (None Seen); Urine Mucus Slight /HPF (None Seen); Urine RBC 21-50 /HPF (None Seen); Urine WBC Clump Rare /HPF (None Seen)
[2022-04-11 18:24] LABS: Hematocrit 40.9 % (36.0-45.0); Lymphocytes % 18.2 % (15.3-44.8); MCV 91.8 fL (80-100); MPV 8.5 fL (7.6-11.3); RBC Red Blood Cell Count 4.45 M/uL (3.86-4.86)
[2022-04-11 18:43] LABS: Bilirubin Total 0.5 mg/dL (0.2-1.0); Potassium 3.8 mmol/L (3.5-5.1); Protein, Total 7.9 g/dL (6.4-8.2)
--- NOTE | 2022-04-11 19:02 | RAD REPORT ---
EXAM DESCRIPTION: US - Abdomen Exam Limited - 04/11/2022 6:47 pm CLINICAL HISTORY: Left flank pain COMPARISON: <Comparisons> FINDINGS: The gallbladder demonstrates no gallstones. No pericholecystic fluid or gallbladder wall t hickening. The common bile duct is normal measuring 4 mm. The liver demonstrates no findings of intrahepatic biliary dilatation. IMPRESSION: Negative for cholelithiasis or acute cholecystitis.
--- NOTE | 2022-04-11 19:04 | RAD REPORT ---
EXAM DESCRIPTION: US - OB Limited - 04/11/2022 6:47 pm CLINICAL HISTORY: ABD PAIN COMPARISON: None FINDINGS: Note that only a transabdominal exam was performed. The patient refused transvaginal exam. Single IUP identified. The gestational sac measures 2.5 cm. The crown-rump length measures 6 millimet ers. The yolk sac measures 3 millimeters. heart rate measured at 126 beat/minute. Left ovary me asures 2.2 x 1.8 x 1.9 cm with volume of 3.8 cc. The right ovary was not visualized. Vascular flow is present within the left ovary. IMPRESSION: Single viable IUP with positive heart tones measuring 6 week 4 day with ADRIEL of . Vascular flow present in the left ovary. Right ovary not visualized.
[2022-04-11] MEDS ORDERED: PROMETHAZINE INJ 25 MG/ML AMP ONE (20:04)
--- NOTE | 2022-04-11 20:06 | RAD REPORT ---
EXAM DESCRIPTION: US - Renal Ultrasound-Complete - 04/11/2022 7:45 pm CLINICAL HISTORY: left kidney COMPARISON: None FINDINGS: Both kidneys are normal in size, shape and echotexture. The right kidney measures 11.4 cm. No hydronephrosis, focal mass or perinephric fluid. The left kidney measures 11.3 cm. No hydronephrosis, focal mass or perinephric fluid. The urinary bladder is incompletely distended without gross abnormality seen. IMPRESSION: No evidence of hydronephrosis. Unremarkable renal ultrasound.
--- NOTE | 2022-04-11 20:28 | EDPHYS ---
Physician Documentation [facility] [place], [place] Name: Daniella Gallego Age: 31 yrs Sex: Female : 1990 Arrival Date: 04/11/2022 Time: 17:15 Bed 3 Private MD: ED Physician Steffen Gerard HPI: 04/11 19:25 This 31 yrs old Female presents to ER via Ambulatory with complaints of Flank ms3 Pain, Urinary Retention. 19:25 The patient complains of pain in the left flank. The pain does not radiate. Onset: The ms3 symptoms/episode began/occurred 1 month(s) ago. Modifying factors: The symptoms are alleviated by nothing. the symptoms are aggravated by nothing. Associated signs and symptoms: The patient has no apparent associated signs or symptoms. Severity of pain: At its worst the pain was severe in the emergency department the pain is unchanged. 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 - Social history:: Smoking status: Patient denies any tobacco usage or history of. Patient uses [employer] [facility] [place]. ROS: 19:25 Constitutional: Negative for fever, and chills. Eyes: Negative for injury, pain, ms3 redness, and discharge, Neck: Negative for injury, pain, and swelling, Cardiovascular: Negative for chest pain, and palpitations. Respiratory: Negative for shortness of breath, cough, wheezing, and pleuritic chest pain. 19:25 Abdomen/GI: Negative for abdominal pain, nausea, vomiting, diarrhea, and constipation, Skin: Negative for injury, rash, and discoloration. 19:25 Back: Positive for flank pain, on the left, Negative for 19:25 All other systems are negative. Exam: 19:25 Constitutional: This is a well developed, well nourished patient who is awake, alert, ms3 and in no acute distress. Head/Face: Normocephalic, atraumatic. Neck: Trachea midline, no cervical lymphadenopathy. Supple, full range of motion without nuchal rigidity, or vertebral point tenderness. No Meningismus. Chest/axilla: Normal chest wall appearance and motion. Nontender with no deformity. Cardiovascular: Regular rate and rhythm with a normal S1 and S2. No gallops, murmurs, or rubs. Normal PMI, no JVD. No pulse deficits. Respiratory: Lungs have equal breath sounds bilaterally, clear to auscultation and percussion. No rales, rhonchi or wheezes noted. No increased work of breathing, no retractions or nasal flaring. Abdomen/GI: Soft, non-tender, with normal bowel sounds. No distension or tympany. No guarding or rebound. No evidence of tenderness throughout. 19:25 Back: pain, that is severe, of the left flank, ROM is normal, normal spinal alignment noted, CVA tenderness, is noted on the left. Vital Signs: 17:32 BP 127 / 95; Pulse 93; Resp 26; Temp 97.9; Pulse Ox 99% ; Weight 76.2 kg; Height 5 ft. kb3 4 in. (162.56 cm); Pain 10/10; 19:15 BP 124 / 85; Pulse 105; Resp 18; Temp 99.1; Pulse Ox 100% on R/A; Pain 10/10; pf1 20:15 BP 134 / 78; Pulse 95; Resp 18; Pulse Ox 100% ; Pain 10/10; pf1 21:38 BP 111 / 66; Pulse 93; Resp 18; Temp 98.9; Pulse Ox 100% ; Pain 7/10; pf1 22:02 BP 114 / 75; Pulse 93; Resp 18; Pulse Ox 100% on R/A; kd3 23:15 BP 110 / 59; Pulse 88; Resp 18; Temp 99.7; Pulse Ox 100% ; Pain 7/10; pf1 17:32 Body Mass Index 28.84 (76.20 kg, 162.56 cm) kb3 MDM: 17:50 Patient medically screened. ms3 19:27 Transition of care: After a detail discussion of the patient's case, care is ms3 transferred to Steffen Gerard MD. 20:25 Differential diagnosis: nephrolithiasis, pyelonephritis, UTI. Data reviewed: vital rn signs, nurses notes, lab test result(s), radiologic studies, ultrasound, and as a result, I will admit patient. Counseling: I had a detailed discussion with the patient and/or guardian regarding: the historical points, exam findings, and any diagnostic results supporting the discharge/admit diagnosis, lab results, radiology results, the need to transfer to another facility, for higher level of care, [facility] does not immediately have the required specialist. Response to treatment: There is no appreciated change of the patient's symptoms at this time, and as a result, I will admit patient. ED course: Pt still with uncontrolled pain, 2 doses of morphine, still vomiting, blood in urine without sign of infection. Pt reports 2 months ago had first kidney stone that required intervention. No MRI here and no urology, will transfer. . 22:49 ED course: Consulted with Dr. Marcial at [facility], recommended toradol and if pain not rn controlled, to transfer to ER for further eval. . 04/11 17:49 Order name: Urine Dipstick-Ancillary; Complete Time: 18:05 EDMS 04/11 17:49 Order name: CBC with Diff; Complete Time: 19:12 ms3 04/11 17:49 Order name: CMP; Complete Time: 19:12 ms3 04/11 17:49 Order name: Lipase; Complete Time: 19:12 ms3 04/11 17:49 Order name: Urine Microscopic Only; Complete Time: 19:12 ms3 04/11 17:53 Order name: Urine --Ancillary (enter results); Complete Time: 19:12 eb 04/11 17:49 Order name: US Abdomen Limited: LEFT KIDNEY US; Complete Time: 19:12 ms3 04/11 17:54 Order name: US OB Limited; Complete Time: 19:12 ms3 04/11 18:21 Order name: HCG, Quantitative; Complete Time: 19:12 EDMS 04/11 18:33 Order name: Urine Culture EDID 04/11 19:30 Order name: Renal Ultrasound-Complete; Complete Time: 20:08 EDMS 04/11 20:46 Order name: SARS RAPID; Complete Time: 22:46 kl 04/11 17:49 Order name: IV Saline Lock; Complete Time: 18:20 ms3 04/11 17:49 Order name: Labs collected and sent; Complete Time: 18:20 ms3 04/11 17:49 Order name: Urine Dipstick-Ancillary (obtain specimen); Complete Time: 18:20 ms3 04/11 17:49 Order name: Urine Test (obtain specimen); Complete Time: 18:20 ms3 Administered Medications: 18:19 Drug: NS 0.9% 1000 ml Route: IV; Rate: 1 bolus; Site: left antecubital; kr3 20:00 Follow up: IV Status: Completed infusion; IV Intake: 1000ml pf1 18:19 Drug: morphine 4 mg Route: IVP; Infused Over: 4 mins; Site: left antecubital; kr3 19:10 Follow up: Response: No adverse reaction; Pain is unchanged, physician notified pf1 19:39 CANCELLED (Duplicate Order): NS 0.9% 500 ml IV at bolus once rn 20:00 Drug: morphine 4 mg Route: IVP; Infused Over: 4 mins; Site: left antecubital; pf1 21:00 Follow up: Response: Pain is decreased pf1 20:00 Drug: Phenergan (promethazine) 12.5 mg Route: IVP; Site: left antecubital; pf1 21:00 Follow up: Response: No adverse reaction pf1 22:57 Drug: Ketorolac 15 mg Route: IVP; Site: left antecubital; pf1 23:37 Follow up: Response: No adverse reaction; Pain is decreased pf1 Disposition Summary: 04/11/22 20:28 Transfer Ordered Transfer Location: [facility] rn Reason: Higher level of care rn Condition: Stable rn Problem: new rn Symptoms: are unchanged rn Accepting Physician: (04/11/22 23:43) pf1 Diagnosis - Unspecified renal colic rn - Less than 8 weeks gestation of rn - Intractable pain rn Forms: - Medication Reconciliation Form rn - SBAR form rn Signatures: Dispatcher [employer] EDMS Steffen Gerard MD MD rn Sims, Marcus, DO DO ms3 Akua Anderson RN RN kr3 Beth Florian, ROD RN kb3 Gracy gonzales RN RN pf1 Corrections: (The following items were deleted from the chart) 17:36 17:35 PMHx: None; kb3 kb3 18:21 17:54 QUANTITATIVE HCG+C.LAB.BRZ ordered. EDMS EDMS 19:31 19:25 Abdomen Complete+US.RAD.BRZ ordered. EDMS EDMS :39 19:39 NS 0.9% 500 ml IV at bolus once ordered. rod ruiz 23:43 20:28 Dr. ruiz pf1
--- NOTE | 2022-04-11 20:28 | ER ---
Nurse's Notes [facility] Name: Daniella Gallego Age: 31 yrs Sex: Female : 1990 Arrival Date: 04/11/2022 Time: 17:15 Bed 3 Private MD: Diagnosis: Unspecified renal colic;Less than 8 weeks gestation of ;Intractable pain Presentation: 04/11 17:32 Chief complaint: Patient states: bilateral flank pain and unable to urinate since kb3 yesterday. Pt reports recent hospitalization at [facility] for kidneys stones but she has been unable to follow up due to financial reasons. Coronavirus screen: Vaccine status: Patient reports receiving the 2nd dose of the covid vaccine. Client denies travel out of the [place] in the last 14 days. Ebola Screen: Patient negative for fever greater than or equal to 101.5 degrees Fahrenheit, and additional compatible Ebola Virus Disease symptoms Patient denies exposure to infectious person. Patient denies travel to an Ebola-affected area in the 21 days before illness onset. No symptoms or risks identified at this time. Initial Sepsis Screen: Does the patient meet any 2 criteria? No. Patient's initial sepsis screen is negative. Does the patient have a suspected source of infection? No. Patient's initial sepsis screen is negative. Risk Assessment: Do you want to hurt yourself or someone else? Patient reports no desire to harm self or others. Onset of symptoms was April 10, 2022. 17:32 Method Of Arrival: Ambulatory kb3 17:32 Acuity: TANNER 3 kb3 Triage Assessment: 17:35 General: Appears distressed, uncomfortable, Behavior is anxious. Pain: Complains of kb3 pain in left low back and right low back Pain radiates to suprapubic area, right lower quadrant and left lower quadrant Pain currently is 10 out of 10 on a pain scale. Quality of pain is described as pressure, Pain began 1 day ago. : Reports inability to void, pain. 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 - Social history:: Smoking status: Patient denies any tobacco usage or history of. Patient uses [employer] in [place]. Screenin:03 [facility] ED Fall Risk Assessment (Adult) History of falling in the last 3 months, kd3 including since admission No falls in past 3 months (0 pts) Confusion or Disorientation No (0 pts) Intoxicated or Sedated No (0 pts) Impaired Gait No (0 pts) Mobility Assist Device Used No (0 pt) Altered Elimination No (0 pt) Score/Fall Risk Level 0 - 2 = Low Risk. Humpty Dumpty Scale Fall Assessment Tool (age< 18yrs) Age 13 years and above (1 pt) Gender Female (1 pt) Diagnosis Other diagnosis (1 pt) Cognitive Impairments Oriented to own ability (1 pt) Environmental Factors Outpatient area (1 pt) Response to Surgery/Sedation/Anesthesia More than 48 hours/None (1 pt) Medication Usage Other medications/ None (1 pt) Fall Risk Score/ Level Low Fall Risk: < 11 points. Abuse screen: Denies threats or abuse. Denies injuries from another. Nutritional screening: No deficits noted. Tuberculosis screening: No symptoms or risk factors identified. Fall Risk No fall in past 12 months (0 pts). No secondary diagnosis (0 pts). IV access (20 points). Ambulatory Aid- None/Bed Rest/Nurse Assist (0 pts). Gait- Normal/Bed Rest/Wheelchair (0 pts) Mental Status- Oriented to own ability (0 pts). Total Johnson Fall Scale indicates No Risk (0-24 pts). Assessment: 18:20 General: Appears distressed, uncomfortable, Behavior is anxious, crying. Pain: kr3 Complains of pain in back and abdomen. Neuro: Level of Consciousness is awake, alert, obeys commands, Oriented to person, place, time, situation. Cardiovascular: Reports None. Respiratory: Airway is patent Respiratory effort is even, labored, Respiratory pattern is regular, symmetrical. GI: Abdomen is round non-distended. : Reports pain only able to pass a small amount of urine. 18:23 Cardiovascular: diaphoretic . EENT: No signs and/or symptoms were reported regarding kr3 the EENT system. Derm: No signs and/or symptoms reported regarding the dermatologic system. Musculoskeletal: Circulation, motion, and sensation intact. Range of motion:. 19:10 General: Appears distressed, uncomfortable, well groomed, well developed, Behavior is pf1 cooperative, appropriate for age, anxious, crying, restless. 19:10 Pain: Complains of pain in right lower quadrant and right flank pain of 10 Pain pf1 currently is 10 out of 10 on a pain scale. Quality of pain is described as sharp. Neuro: Level of Consciousness is awake, alert, obeys commands, Oriented to person, place, time, situation. Cardiovascular: No deficits noted. Reports None Capillary refill < 3 seconds Patient's skin is warm and dry. Respiratory: No deficits noted. Airway is patent Respiratory effort is even, labored, Respiratory pattern is regular, symmetrical. GI: Abdomen is round non-distended, Bowel sounds present X 4 quads. Reports lower abdominal pain, nausea, vomiting, Patient C/O right flank pain that radiates to right lower quadrant pain of 10. : Reports history of kidney stones. EENT: No signs and/or symptoms were reported regarding the EENT system. Derm: No signs and/or symptoms reported regarding the dermatologic system. 21:40 General: Patient agreed to be transfer. pf1 23:42 General: Patient report given to Jm with [facility]. Patient being pf1 transferred to [facility] ER at this time. Vital Signs: 17:32 BP 127 / 95; Pulse 93; Resp 26; Temp 97.9; Pulse Ox 99% ; Weight 76.2 kg; Height 5 ft. kb3 4 in. (162.56 cm); Pain 10/10; 19:15 BP 124 / 85; Pulse 105; Resp 18; Temp 99.1; Pulse Ox 100% on R/A; Pain 10/10; pf1 20:15 BP 134 / 78; Pulse 95; Resp 18; Pulse Ox 100% ; Pain 10/10; pf1 21:38 BP 111 / 66; Pulse 93; Resp 18; Temp 98.9; Pulse Ox 100% ; Pain 7/10; pf1 22:02 BP 114 / 75; Pulse 93; Resp 18; Pulse Ox 100% on R/A; kd3 23:15 BP 110 / 59; Pulse 88; Resp 18; Temp 99.7; Pulse Ox 100% ; Pain 7/10; pf1 17:32 Body Mass Index 28.84 (76.20 kg, 162.56 cm) kb3 ED Course: 17:15 Patient arrived in ED. as 17:25 Clay Guevara DO is Attending Physician. ms3 17:35 Triage completed. kb3 17:35 Arm band placed on right wrist. Patient placed in an exam room. kb3 17:52 Akua Anderson, RN is Primary Nurse. kr3 18:49 US Abdomen Limited: LEFT KIDNEY US In Process Unspecified. EDMS 18:49 US OB Limited In Process Unspecified. EDMS 19:25 Attending Physician role handed off by Clay Guevara DO rn 19:25 Steffen Gerard MD is Attending Physician. rn 19:30 Primary Nurse role handed off by Akua Anderson, ROD mw2 19:32 Akua Anderson RN is Primary Nurse. kr3 19:46 Renal Ultrasound-Complete In Process Unspecified. EDMS 21:20 No provider procedures requiring assistance completed. Inserted saline lock: 22 gauge pf1 in left antecubital area, using aseptic technique. ,using aseptic technique. inserted per dayshift Blood collected. 21:45 initiated a transfer with Macy from [facility]. mw2 22:04 Patient has correct armband on for positive identification. Placed in gown. Bed in low kd3 position. 22:[address] Gerard with the Doctor from [facility]. mw2 22:50 administrative approval given by Macy Leon/ patient has been accepted to [address] to the ER/ Dr. Marcial accepted the patient in transfer/report to be called to [phone]. 23:41 Patient transferred, IV remains in place. pf1 Administered Medications: 18:19 Drug: NS 0.9% 1000 ml Route: IV; Rate: 1 bolus; Site: left antecubital; kr3 20:00 Follow up: IV Status: Completed infusion; IV Intake: 1000ml pf1 18:19 Drug: morphine 4 mg Route: IVP; Infused Over: 4 mins; Site: left antecubital; kr3 19:10 Follow up: Response: No adverse reaction; Pain is unchanged, physician notified pf1 19:39 CANCELLED (Duplicate Order): NS 0.9% 500 ml IV at bolus once rn 20:00 Drug: morphine 4 mg Route: IVP; Infused Over: 4 mins; Site: left antecubital; pf1 21:00 Follow up: Response: Pain is decreased pf1 20:00 Drug: Phenergan (promethazine) 12.5 mg Route: IVP; Site: left antecubital; pf1 21:00 Follow up: Response: No adverse reaction pf1 22:57 Drug: Ketorolac 15 mg Route: IVP; Site: left antecubital; pf1 23:37 Follow up: Response: No adverse reaction; Pain is decreased pf1 Medication: 22:04 VIS not applicable for this client. kd3 Intake: 20:00 IV: 1000ml; Total: 1000ml. pf1 Outcome: 20:28 ER care complete, transfer ordered by . rn 23:11 Transferred by ground EMS to [facility], Note: [facility] pf1 23:11 Transferred Note: Patient report given to ROD Lowery 23:11 Condition: stable 23:11 Instructed on the need for transfer. 23:43 Patient left the ED. pf1 Signatures: Dispatcher [employer] EDMS Hortencia Jimenez Roman, MD MD rn [place], MyKena mw2 Clay Guevara DO DO ms3 Esme Rodriguez RN RN kd3 Akua Anderson RN RN kr3 Beth Florian RN RN kb3 Gracy gonzales RN RN pf1 Corrections: (The following items were deleted from the chart) 17:36 17:35 PMHx: None; [email or web address] kb3
[2022-04-11 21:21] LABS: SARS-CoV-2 Antigen Rapid Res Negative (Negative)
[2022-04-11] MEDS ORDERED: KETOROLAC 30 MG/ML INJ ONE (22:58)
[2022-04-12 00:27] VITALS: O2SAT 100
[2022-04-12 00:32] VITALS: BP 110/59; TEMP 99.7
== END 2022-04-11 23:43 | disposition short-term general hospital (02) ==
LOC: ER 17:13
DX: O26.833 Pregnancy related renal disease, third trimester (principal); Z3A.01 Less than 8 weeks gestation of pregnancy; Z87.442 Personal history of urinary calculi; Z88.3 Allergy status to other anti-infective agents; Z20.822 Contact with and (suspected) exposure to COVID-19
CPT/HCPCS: 96361; 87088; 85025; 87086; 36415; 81025; 84702; 83690; 80053; 76705; 76815; 76770; 96375; 96374; 99285; 87811; J2550; J7030; 81003; 81015; 87077; 87186

== ENCOUNTER 2022-05-13 21:10 | Emergency (ER) | payer OTHER ==
[2022-05-13] MEDS ORDERED: FENTANYL CITR 100 MCG/2 ML ONE (21:55)
[2022-05-13 22:15] LABS: Absolute Lymphocytes (CBC) 4.8 K/uL (0.7-4.9); Hematocrit 37.6 % (36.0-45.0); Lymphocytes % 30.2 % (15.3-44.8); MCV 92.1 fL (80-100); MPV 8.5 fL (7.6-11.3); RBC Red Blood Cell Count 4.08 M/uL (3.86-4.86)
[2022-05-13] MEDS ORDERED: LORazepam 2 MG/ML VIAL ONE (22:20)
--- NOTE | 2022-05-13 22:28 | RAD REPORT ---
EXAM DESCRIPTION: US - Transvaginal OB - 05/13/2022 10:20 pm CLINICAL HISTORY: ABD CRAMPING, COMPARISON: OB Limited dated 04/11/2022 FINDINGS: IUP identified. The crown-rump length measures 1.3 cm which would be consistent with 7 wee ks 3 day. Approximately 4 weeks prior on the OB ultrasound, the crown-rump length was consistent with 6 week 4 day. No heart tones identified. Neither ovary visualized. IMPRESSION: Single IUP identified. No heart tones. heart tones were documented on the pr ior exam. This is diagnostic of a failed first trimester .
[2022-05-13 22:35] LABS: Albumin 3.6 g/dL (3.4-5.0); Bilirubin Total 0.6 mg/dL (0.2-1.0); Potassium 3.5 mmol/L (3.5-5.1); Protein, Total 7.5 g/dL (6.4-8.2)
[2022-05-13] MEDS ORDERED: KETOROLAC 30 MG/ML INJ ONE (22:40)
--- NOTE | 2022-05-13 23:26 | EDPHYS ---
Physician Documentation [facility] Name: Daniella Gallego Age: 32 yrs Sex: Female : 1990 Arrival Date: 05/13/2022 Time: 21:11 Bed 6 Private MD: ED Physician Destiny Allison HPI: 05/13 21:53 This 32 yrs old Female presents to ER via Ambulatory with complaints of sd2 Vaginal Bleeding - 14 wks preg, Pelvic Pain. 21:53 32-year-old female at approximately 13 weeks 6 days gestation presents with chief sd2 complaint of vaginal bleeding and pelvic pain. She reports that she started yesterday with some dark brown spotting and then later this evening today started with heavy bleeding and passing clots with pelvic pain that felt like labor. She reports "I feel like I have to push." The patient is very anxious and tearful at time of my evaluation. Reports having an US in April that was normal and seeing her OBGYN last last week with a normal checkup. . 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 - Social history:: Smoking status: unknown. ROS: 21:53 Constitutional: Negative for fever, chills, and weight loss, Eyes: Negative for injury, sd2 pain, redness, and discharge, Cardiovascular: Negative for chest pain, palpitations, and edema, Respiratory: Negative for shortness of breath, cough, wheezing. Abdomen/GI: Negative for abdominal pain, nausea, vomiting, diarrhea. : Negative for dysuria, urinary frequency, hesitancy, urgency and positive for hematuria, vaginal bleeding and pelvic pain MS/Extremity: Negative for injury and deformity, Skin: Negative for injury, rash, and discoloration, Neuro: Negative for headache, numbness and tingling. Exam: 21:53 Constitutional: This is a well developed, well nourished patient who is awake, alert, sd2 and in distress. Appears anxious, hyperventilating and tearful. Head/Face: Normocephalic, atraumatic. Eyes: EOMI, normal conjunctiva bilaterally Chest/axilla: Normal chest wall appearance and motion. Nontender with no deformity. Cardiovascular: Regular rate and rhythm with a normal S1 and S2. No gallops, murmurs, or rubs. 2+ distal pulses. Respiratory: Lungs have equal breath sounds bilaterally, clear to auscultation and percussion. No rales, rhonchi or wheezes noted. No increased work of breathing, no retractions or nasal flaring. Abdomen/GI: Soft, non-tender, with normal bowel sounds. No guarding or rebound. No evidence of tenderness throughout. Pelvic Exam: Normal external genitalia. Speculum exam with cervical os difficult to visualize, bleeding noted and small clots removed from the vaginal canal. Bimanual exam with normal adnexa, no adnexal or cervical motion tenderness. Cervix may be fingertip open. Normal uterus. Female : Normal external genitalia. Skin: Warm, dry with normal turgor. Normal color with no rashes, no lesions, and no evidence of cellulitis. MS/ Extremity: Pulses equal, no cyanosis. Neurovascular intact. Full, normal range of motion. Ambulatory without difficulty. Psych: Awake, alert, with orientation to person, place and time. Behavior, mood, and affect are within normal limits. Vital Signs: 21:35 BP 132 / 88; Pulse 93; Resp 20 S; Temp 98.3(O); Pulse Ox 100% on R/A; Weight 72.57 kg bb (R); Height 5 ft. 4 in. (162.56 cm) (R); Pain 10/10; 23:55 BP 124 / 72; Pulse 81; Resp 12; Pulse Ox 98% on R/A; Pain 6/10; tw5 23:55 Pain 6/10; tw5 21:35 Body Mass Index 27.46 (72.57 kg, 162.56 cm) bb MDM: 21:33 Patient medically screened. sd2 21:53 Differential diagnosis: ectopic , molar preganancy, pelvic inflammatory sd2 disease, ruptured ectopic , uterine fibroids, urinary tract infection, among others. Data reviewed: vital signs, nurses notes. 23:24 Data reviewed: lab test result(s), radiologic studies. I considered the following sd2 discharge prescriptions or medication management in the emergency department Medications were administered in the Emergency Department. See MAR. Independent interpretation of the following test(s) in the Emergency Department Radiology Department Ultrasound: My interpretation is . Counseling: I had a detailed discussion with the patient and/or guardian regarding: the historical points, exam findings, and any diagnostic results supporting the discharge/admit diagnosis, lab results, radiology results, the need for outpatient follow up, to return to the emergency department if symptoms worsen or persist or if there are any questions or concerns that arise at home. ED course: Labs and imaging reviewed. hCG is low for dates and ultrasound confirms no further heart tones. Patient was advised of this and need for close follow-up with her INSTRUMENT REPAIRER to resolution. Pt is not Rh negative and does not require Rhogam at this time. Verbalizes understanding of discharge plan and strict return precautions. . 05/13 21:36 Order name: CBC with Diff; Complete Time: 22:34 sd2 05/13 21:36 Order name: Abo/rh Typing; Complete Time: 23:23 sd2 05/13 21:36 Order name: HCG-Quantitative; Complete Time: 23:23 sd2 05/13 21:36 Order name: CMP; Complete Time: 23:23 sd2 05/13 21:36 Order name: Lipase; Complete Time: 23:23 sd2 05/13 22:22 Order name: Transvaginal OB; Complete Time: 22:34 EDMS Administered Medications: 22:04 Drug: fentaNYL (PF) 50 mcg Route: IVP; Site: left hand; tw5 23:48 Follow up: Response: No adverse reaction; Pain is unchanged, physician notified; RASS: tw5 Alert and Calm (0) 22:24 Drug: Ativan (LORazepam) 1 mg Route: IVP; Site: left hand; tw5 23:48 Follow up: Response: No adverse reaction; Anxiety decreased; RASS: Alert and Calm (0) tw5 22:46 Drug: Ketorolac 15 mg Route: IVP; Site: left hand; tw5 23:48 Follow up: Response: No adverse reaction; Pain is unchanged, physician notified tw5 23:48 Drug: morphine 4 mg Route: IVP; Infused Over: 4 mins; Site: left hand; tw5 23:55 Follow up: Pain 6/10 Adult; Response: No adverse reaction; Pain is decreased; RASS: tw5 Alert and Calm (0) Disposition Summary: 05/13/22 23:26 Discharge Ordered Location: Home sd2 Problem: new sd2 Symptoms: have improved sd2 Condition: Stable sd2 Diagnosis - Incomplete spontaneous without complication sd2 Followup: sd2 - With: Private Physician - When: 2 - 3 days - Reason: Recheck today's complaints, Continuance of care, Re-evaluation by your physician Discharge Instructions: - Discharge Summary Sheet sd2 - Incomplete Miscarriage sd2 - Managing Loss sd2 Forms: - Medication Reconciliation Form sd2 - Thank You Letter sd2 - Antibiotic Education sd2 - Prescription Opioid Use sd2 Prescriptions: - Ibuprofen 800 mg Oral Tablet - take 1 tablet by ORAL route every 8 hours As needed take with food; 20 tablet; sd2 Refills: 0, Product Selection Permitted - Tramadol 50 mg Oral Tablet - take 1 tablet by ORAL route every 6 hours As needed as needed; 12 tablet; sd2 Refills: 0, Product Selection Permitted Signatures: Dispatcher [employer] Lyudmila Leong RN RN oJrdyn Higginbotham tw5 Destiny Allison MD MD sd2 Corrections: (The following items were deleted from the chart) 22:05 21:36 Urine Dipstick-Ancillary ordered. sd2 tw5 22:21 21:37 1st Trimest Single 1st Fetus+US.RAD.BRZ ordered. EDMS EDMS
--- NOTE | 2022-05-13 23:26 | ER ---
Nurse's Notes [facility] Name: Daniella Gallego Age: 32 yrs Sex: Female : 1990 Arrival Date: 05/13/2022 Time: 21:11 Bed 6 Private MD: Diagnosis: Incomplete spontaneous without complication Presentation: 05/13 21:35 Chief complaint: Patient states: she thinks she is having a miscarriage she started bb having abdominal pain and vaginal bleeding yesterday which is getting worse today the bleeding has increased and she is having large clots. Coronavirus screen: At this time, the client does not indicate any symptoms associated with coronavirus-19. Ebola Screen: No symptoms or risks identified at this time. Initial Sepsis Screen: Does the patient meet any 2 criteria? No. Patient's initial sepsis screen is negative. Does the patient have a suspected source of infection? No. Patient's initial sepsis screen is negative. Risk Assessment: Do you want to hurt yourself or someone else? Patient reports no desire to harm self or others. Onset of symptoms was May 12, 2022. 21:35 Method Of Arrival: Ambulatory bb 21:35 Acuity: TANNER 3 bb 21:36 Chief complaint:. kd3 21:36 Chief complaint: Patient states: the pain started yesterday and I am just cramping. The kd3 blood was brown yesterday and now i have passed large clots and bright red blood. Triage Assessment: 21:36 General: Appears uncomfortable, Behavior is anxious, crying. 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 - Social history:: Smoking status: unknown. Screenin:40 [facility] ED Fall Risk Assessment (Adult) History of falling in the last 3 months, kd3 including since admission No falls in past 3 months (0 pts) Confusion or Disorientation No (0 pts) Intoxicated or Sedated No (0 pts) Impaired Gait No (0 pts) Mobility Assist Device Used No (0 pt) Altered Elimination No (0 pt) Score/Fall Risk Level 0 - 2 = Low Risk Oriented to surroundings. Abuse screen: Denies threats or abuse. Denies injuries from another. Nutritional screening: No deficits noted. Tuberculosis screening: No symptoms or risk factors identified. Assessment: 21:38 General: Appears uncomfortable, Behavior is anxious, crying. Pain: Complains of pain in kd3 right lower quadrant and left lower quadrant. Neuro: Level of Consciousness is awake, alert, obeys commands, Oriented to person, place, time, situation. Respiratory: Airway is patent Trachea. 21:38 Cardiovascular: Patient's skin is warm and dry. : Urine is blood tinged, Reports kd3 vaginal bleeding that is bright red. 21:43 General: Reports "I feel like I need to push, this feels like labor.". kd3 22:25 General: Behavior is anxious, crying, restless. tw5 23:49 General: Patient found in bathroom crying holding what appears to be a large blood tw5 clot. Sample sent to lab. Vital Signs: 21:35 BP 132 / 88; Pulse 93; Resp 20 S; Temp 98.3(O); Pulse Ox 100% on R/A; Weight 72.57 kg bb (R); Height 5 ft. 4 in. (162.56 cm) (R); Pain 10/10; 23:55 BP 124 / 72; Pulse 81; Resp 12; Pulse Ox 98% on R/A; Pain 6/10; tw5 23:55 Pain 6/10; tw5 21:35 Body Mass Index 27.46 (72.57 kg, 162.56 cm) bb ED Course: 21:11 Patient arrived in ED. as 21:31 Esme Rodriguez RN is Primary Nurse. kd3 21:32 Primary Nurse role handed off by Esme Rodriguez RN tw5 21:32 Jordyn Isabel is Primary Nurse. tw5 21:33 Destiny Allison MD is Attending Physician. sd2 21:37 Triage completed. bb 21:37 Arm band placed on Patient placed in an exam room, on a stretcher, on pulse oximetry. bb 21:58 Missed attempt(s): 20 gauge in right antecubital area. kd3 21:58 Inserted saline lock: 22 gauge in left hand, using aseptic technique. Blood collected. kd3 22:05 Patient has correct armband on for positive identification. Placed in gown. Bed in low tw5 position. Call light in reach. Side rails up X2. Door closed. Noise minimized. Moved to private room. Warm blanket given. Verbal reassurance given. 22:06 Assist provider with pelvic exam: Set up pelvic tray. Performed by Destiny Allison MD. tw5 22:22 Transvaginal OB In Process Unspecified. EDMS 22:25 CMP Sent. tw5 22:25 Lipase Sent. tw5 22:25 HCG-Quantitative Sent. tw5 22:25 Abo/rh Typing Sent. tw5 23:56 IV discontinued, intact, bleeding controlled, No redness/swelling at site. Pressure tw5 dressing applied. Administered Medications: 22:04 Drug: fentaNYL (PF) 50 mcg Route: IVP; Site: left hand; tw5 23:48 Follow up: Response: No adverse reaction; Pain is unchanged, physician notified; RASS: tw5 Alert and Calm (0) 22:24 Drug: Ativan (LORazepam) 1 mg Route: IVP; Site: left hand; tw5 23:48 Follow up: Response: No adverse reaction; Anxiety decreased; RASS: Alert and Calm (0) tw5 22:46 Drug: Ketorolac 15 mg Route: IVP; Site: left hand; tw5 23:48 Follow up: Response: No adverse reaction; Pain is unchanged, physician notified tw5 23:48 Drug: morphine 4 mg Route: IVP; Infused Over: 4 mins; Site: left hand; tw5 23:55 Follow up: Pain 6/10 Adult; Response: No adverse reaction; Pain is decreased; RASS: tw5 Alert and Calm (0) Medication: 22:05 VIS not applicable for this client. tw5 Outcome: 23:26 Discharge ordered by . sd2 23:55 Discharged to home via wheelchair, with family. tw5 23:55 Condition: stable 23:55 Discharge instructions given to patient, family, Instructed on discharge instructions, follow up and referral plans. medication usage, Demonstrated understanding of instructions, follow-up care, medications. 23:56 Patient left the ED. tw5 Signatures: Dispatcher [employer] Hortencia Castillo Brenda, RN RN bb Wood, Tiffany tw5 Esme Rodriguez RN RN kd3 Destiny Allison MD MD sd2
[2022-05-13] MEDS ORDERED: MORPHINE 4 MG/ML SYR ONE (23:52)
[2022-05-14 00:22] VITALS: TEMP 98.3
[2022-05-14 00:27] VITALS: BP 124/72; O2SAT 98
== END 2022-05-13 23:56 | disposition home or self-care (01) ==
LOC: ER 21:10
DX: O03.4 Incomplete spontaneous abortion without complication (principal); Z88.1 Allergy status to other antibiotic agents; Z87.442 Personal history of urinary calculi
CPT/HCPCS: 85025; 36415; 86900; 86901; 84702; 83690; 80053; 76817; 96375; 96374; 99284; J3010; 88305

== ENCOUNTER 2022-05-14 09:00 | Observation (INO) | payer OTHER ==
[2022-05-14] MEDS ORDERED: HYDROMORPHONE HCL 1 MG/ML INJ ONE (09:20)
--- NOTE | 2022-05-14 09:34 | ER ---
Nurse's Notes [facility] Name: Daniella Gallego Age: 32 yrs Sex: Female : 1990 Arrival Date: 05/14/2022 Time: 09:01 Bed 3 Private MD: Diagnosis: Incomplete spontaneous with other complications-pain, hemorrhage Presentation: 05/14 09:00 Chief complaint: EMS states: patient had demise, is in pain, passing blood, has ko1 not passed fetus. Coronavirus screen: At this time, the client does not indicate any symptoms associated with coronavirus-19. Ebola Screen: No symptoms or risks identified at this time. Initial Sepsis Screen: Does the patient meet any 2 criteria? No. Patient's initial sepsis screen is negative. Does the patient have a suspected source of infection? No. Patient's initial sepsis screen is negative. Risk Assessment: Do you want to hurt yourself or someone else? Patient reports no desire to harm self or others. Onset of symptoms was May 14, 2022. 09:00 Method Of Arrival: EMS: [facility] ko1 09:00 Acuity: TANNER 1 ko1 Triage Assessment: 09:00 General: Appears distressed, uncomfortable, Behavior is appropriate for age, anxious, ko1 crying, restless. Pain: Complains of pain in abdomen. 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 - Social history:: Smoking status: unknown. Screenin:30 [facility] ED Fall Risk Assessment (Adult) History of falling in the last 3 months, ko1 including since admission No falls in past 3 months (0 pts) Confusion or Disorientation No (0 pts) Intoxicated or Sedated No (0 pts) Impaired Gait No (0 pts) Mobility Assist Device Used No (0 pt) Altered Elimination No (0 pt) Score/Fall Risk Level 0 - 2 = Low Risk Oriented to surroundings, Maintained a safe environment, Educated pt \T\ family on fall prevention, incl call for assistance when getting out of bed, Assessed \T\ reinforced patient's understanding of fall precautions, Provided non-skid footwear, Hourly rounding (assess needs \T\ fall precautionary measures) done, Used ambulatory aids as needed (educated on \T\ assisted with), Used gait belt as appropriate. Abuse screen: Denies threats or abuse. Denies injuries from another. Nutritional screening: No deficits noted. Tuberculosis screening: No symptoms or risk factors identified. Assessment: 09:30 Neuro: No deficits noted. Cardiovascular: No deficits noted. Respiratory: Respiratory ko1 pattern is hyperventilation. GI: No deficits noted. : No deficits noted. EENT: No deficits noted. Derm: No deficits noted. Musculoskeletal: No deficits noted. Vital Signs: 09:00 BP 117 / 80; Pulse 115; Resp 44; Temp 98(O); Pulse Ox 97% ; Weight 73.94 kg (R); Height ko1 5 ft. 4 in. (162.56 cm) (R); Pain 10/10; 09:30 BP 107 / 52; Pulse 84; Resp 18; Pulse Ox 99% ; ko1 09:00 Body Mass Index 27.98 (73.94 kg, 162.56 cm) ko1 ED Course: 09:00 Initial lab(s) drawn, by me, sent to lab. Inserted saline lock: 20 gauge in left wrist, jl7 using aseptic technique. Blood collected. 09:00 Inserted saline lock: 22 gauge in right hand, using aseptic technique. ko1 09:00 Arm band placed on right wrist. ko1 09:01 Patient arrived in ED. eb 09:01 Pradeep Ambriz MD is Attending Physician. austen 09:15 Assist provider with pelvic exam: Set up pelvic tray. Performed by Pradeep Ambriz MD ko1 Patient tolerated well. 09:22 Sravani Aceves, ROD is Primary Nurse. ko1 09:26 Triage completed. ko1 09:30 Keith Nagel MD is Hospitalizing Provider. austen 09:30 PT-INR Sent. ko1 09:30 SARS RAPID Sent. ko1 09:30 Patient has correct armband on for positive identification. Placed in gown. Bed in low ko1 position. Call light in reach. Side rails up X2. Pulse ox on. NIBP on. 09:55 SARS RAPID Sent. ko1 Administered Medications: 09:10 Drug: NS 0.9% 1000 ml Route: IV; Rate: 1 bolus; Site: right hand; bp 09:10 Drug: Dilaudid (HYDROmorphone) 1 mg Route: IVP; Site: right hand; bp 09:10 Drug: Zofran (Ondansetron) 4 mg Route: IVP; Site: right hand; bp 09:10 Drug: METHERgine 0.2 mg Route: IM; Site: right deltoid; bp 09:10 Drug: Dilaudid (HYDROmorphone) 1 mg Route: IVP; Site: left wrist; jl7 09:35 Drug: Clindamycin 900 mg Route: IVPB; Infused Over: 30 mins; Site: left wrist; ko1 Outcome: 09:33 Decision to Hospitalize by Provider. austen 10:44 Patient left the ED. ko1 10:53 Patient left the ED. eb Signatures: Pradeep Ambriz MD MD cha Leal, Jahala RN RN jl7 Foster Wade RN RN bp Botello, Elizabeth eb Oliver, Kathy, ROD RN ko1
--- NOTE | 2022-05-14 09:34 | EDPHYS ---
Physician Documentation [facility] Name: Daniella Gallego Age: 32 yrs Sex: Female : 1990 Arrival Date: 05/14/2022 Time: : Bed 3 Private MD: ED Physician Pradeep Ambriz HPI: 05/14 09:26 This 32 yrs old Female presents to ER via Unassigned with complaints of austen vaginal bleeding, 8 week iufd. 09:26 The patient presents to the emergency department with abdominal pain, that started austen yesterday, vaginal bleeding. The estimated gestational age is 8 weeks. course: care: at a clinic. Previous pregnancies: in previous pregnancies patient has had vaginal delivery. The patient has not experienced similar symptoms in the past. RIVER RAT: 09:26 4, Full Term 2, Premature 0, 1, Living 2 austen Historical: - Allergies: 09:21 Rocephin; jl7 - Home Meds: 09:21 None [Active]; jl7 - PMHx: 09:21 Kidney stone; jl7 - PSHx: 09:21 section; Lithotripsy; jl7 - Immunization history:: Adult Immunizations unknown. - Social history:: Smoking status: unknown. ROS: 09:28 Constitutional: Negative for fever, chills, and weight loss, Eyes: Negative for injury, austen pain, redness, and discharge, ENT: Negative for injury, pain, and discharge, Neck: Negative for injury, pain, and swelling, Cardiovascular: Negative for chest pain, palpitations, and edema, Respiratory: Negative for shortness of breath, cough, wheezing, and pleuritic chest pain, Back: Negative for injury and pain, MS/Extremity: Negative for injury and deformity, Skin: Negative for injury, rash, and discoloration, Neuro: Negative for headache, weakness, numbness, tingling, and seizure. 09:28 Abdomen/GI: Positive for abdominal pain, abdominal cramps, abdominal distension. Exam: 09:28 Constitutional: This is a well developed, well nourished patient who is awake, alert, austen and in no acute distress. Head/Face: Normocephalic, atraumatic. Eyes: Pupils equal round and reactive to light, extra-ocular motions intact. Lids and lashes normal. Conjunctiva and sclera are non-icteric and not injected. Cornea within normal limits. Periorbital areas with no swelling, redness, or edema. ENT: Nares patent. No nasal discharge, no septal abnormalities noted. Tympanic membranes are normal and external auditory canals are clear. Oropharynx with no redness, swelling, or masses, exudates, or evidence of obstruction, uvula midline. Mucous membranes moist. Neck: Trachea midline, no thyromegaly or masses palpated, and no cervical lymphadenopathy. Supple, full range of motion without nuchal rigidity, or vertebral point tenderness. No Meningismus. Chest/axilla: Normal chest wall appearance and motion. Nontender with no deformity. No lesions are appreciated. Cardiovascular: Regular rate and rhythm with a normal S1 and S2. No gallops, murmurs, or rubs. Normal PMI, no JVD. No pulse deficits. Respiratory: Lungs have equal breath sounds bilaterally, clear to auscultation and percussion. No rales, rhonchi or wheezes noted. No increased work of breathing, no retractions or nasal flaring. Abdomen/GI: Soft, non-tender, with normal bowel sounds. No distension or tympany. No guarding or rebound. No evidence of tenderness throughout. Back: No spinal tenderness. No costovertebral tenderness. Full range of motion. Skin: Warm, dry with normal turgor. Normal color with no rashes, no lesions, and no evidence of cellulitis. MS/ Extremity: Pulses equal, no cyanosis. Neurovascular intact. Full, normal range of motion. Neuro: Awake and alert, GCS 15, oriented to person, place, time, and situation. Cranial nerves II-XII grossly intact. Motor strength 5/5 in all extremities. Sensory grossly intact. Cerebellar exam normal. Normal gait. Psych: Awake, alert, with orientation to person, place and time. Behavior, mood, and affect are within normal limits. 09:28 : CVA tenderness, is absent, Pelvic Exam: is not necessary for this patient, External exam: is normal, Speculum exam: moderate bleeding, os that is open, tissue in cervix is seen, bimanual exam reveals os that is open, an enlarged uterus, the nurse was present for the exam, Gravid exam: Fundal height: consistent with gestational age, Bladder: is normal, Sexual behavior: the patient is sexually active, and reports a single partner. 10:51 ECG was reviewed by the Attending Physician. [facility] Vital Signs: 09:00 BP 117 / 80; Pulse 115; Resp 44; Temp 98(O); Pulse Ox 97% ; Weight 73.94 kg (R); Height ko1 5 ft. 4 in. (162.56 cm) (R); Pain 10/10; 09:30 BP 107 / 52; Pulse 84; Resp 18; Pulse Ox 99% ; ko1 09:00 Body Mass Index 27.98 (73.94 kg, 162.56 cm) ko1 MDM: 09:01 Patient medically screened. [facility] 09:41 Differential diagnosis: inevitable Ab. Data reviewed: vital signs, nurses notes, EMS austen record, lab test result(s), radiologic studies, ultrasound. Consideration of Admission/Observation Patient was admitted/placed on observation. Escalation of care including admission/observation considered. Management of patient was discussed with the following: Center Specialists: radha bellamy. I considered the following discharge prescriptions or medication management in the emergency department Medications were administered in the Emergency Department. See MAR. Test considered but Not performed: Ultrasound us , last night. 05/14 09:03 Order name: CBC with Diff; Complete Time: 10:27 [facility] 05/14 09:03 Order name: Comprehensive Metabolic Panel [facility] 05/14 09:03 Order name: Quantitative Hcg [facility] 05/14 09:03 Order name: Abo/rh Typing; Complete Time: 10:27 [facility] 05/14 09:25 Order name: SARS RAPID; Complete Time: 10:27 [facility] 05/14 09:25 Order name: PT-INR; Complete Time: 10:27 [facility] 05/14 09:03 Order name: Pelvic Exam Setup; Complete Time: 09:16 [facility] 05/14 09:42 Order name: EKG; Complete Time: 09:42 [facility] 05/14 09:25 Order name: NPO; Complete Time: 09:32 [facility] 05/14 09:42 Order name: EKG - Nurse/Tech; Complete Time: 09:55 [facility] EC:51 Rate is 77 beats/min. Rhythm is regular. QRS [place] is Normal. CA interval is normal. QRS [place]en interval is normal. QT interval is normal. No Q waves. T waves are Normal. No ST changes noted. Clinical impression: Normal ECG and No evidence of ischemia. Interpreted by me. Reviewed by me. Administered Medications: 09:10 Drug: NS 0.9% 1000 ml Route: IV; Rate: 1 bolus; Site: right hand; bp 09:10 Drug: Dilaudid (HYDROmorphone) 1 mg Route: IVP; Site: right hand; bp 09:10 Drug: Zofran (Ondansetron) 4 mg Route: IVP; Site: right hand; bp 09:10 Drug: METHERgine 0.2 mg Route: IM; Site: right deltoid; bp 09:10 Drug: Dilaudid (HYDROmorphone) 1 mg Route: IVP; Site: left wrist; jl7 09:35 Drug: Clindamycin 900 mg Route: IVPB; Infused Over: 30 mins; Site: left wrist; ko1 Disposition Summary: 05/14/22 09:33 Hospitalization Ordered Hospitalization Status: Observation austen Provider: Radha Bellamy cha Location: Operating Room austen Condition: Fair austen Problem: new austen Symptoms: are unchanged austne Bed/Room Type: Standard [facility] Room Assignment: austen Diagnosis - Incomplete spontaneous with other complications - pain, hemorrhage austen Forms: - Medication Reconciliation Form autsen - SBAR form austen Signatures: Dispatcher [employer] EDPradeep Logan MD MD cha Leal, Jahala RN RN jl7 Foster Wade RN RN Sravani Cesar RN RN ko1
[2022-05-14] MEDS ORDERED: CLINDAMYCIN 900MG/D5W 900 MG/50 ML IVPB IV ONE (09:36)
[2022-05-14 09:39] LABS: Absolute Lymphocytes (CBC) 3.1 K/uL (0.7-4.9); Hematocrit 32.4 % (36.0-45.0); MCV 92.9 fL (80-100); MPV 8.5 fL (7.6-11.3); RBC Red Blood Cell Count 3.49 M/uL (3.86-4.86)
[2022-05-14 09:41] LABS: Protime INR 1.15
[2022-05-14 09:58] LABS: SARS-CoV-2 Antigen Rapid Res Negative (Negative)
[2022-05-14] MEDS ORDERED: ACETAMINOPHEN 325 MG TABLET PO PRN (09:58)
[2022-05-14] MEDS ORDERED: ONDANSETRON 4 MG/2 ML VIAL IV PRN (09:58)
[2022-05-14] MEDS ORDERED: MORPHINE 4 MG/ML SYR IV PRN (09:58)
[2022-05-14] MEDS ORDERED: NA CHLORIDE 0.9% 1,000 ML IV SCH (10:00)
[2022-05-14 10:48] LABS: Albumin 3.2 g/dL (3.4-5.0); Bilirubin Total 0.4 mg/dL (0.2-1.0); Potassium 3.6 mmol/L (3.5-5.1); Protein, Total 6.5 g/dL (6.4-8.2)
[2022-05-14] MEDS ORDERED: FENTANYL CITR 100 MCG/2 ML ONE (11:20)
[2022-05-14] MEDS ORDERED: propofoL 200 MG/20 ML VIAL IV ONE (11:20)
[2022-05-14] MEDS ORDERED: ROCURONIUM 50 MG/5 ML VIAL IV ONE (11:21)
[2022-05-14] MEDS ORDERED: MIDAZOLAM HCL 2 MG/2 ML INJ ONE ×2 (11:21→11:27)
[2022-05-14] MEDS ORDERED: LIDOCAINE 2% MPF 5 ML VIAL ONE (11:21)
[2022-05-14] MEDS ORDERED: SUCCINYLCHOLINE 20 MG/ML (10 ML) IV ONE (11:28)
[2022-05-14] MEDS ORDERED: OXYTOCIN 10 UNIT/ML ML ONE (11:32)
[2022-05-14] MEDS ORDERED: SILVER NITRATE 1 APPL TOP ONE (11:32)
[2022-05-14] MEDS ORDERED: METHYLERGONOVINE 0.2MG/ML AMP IM ONE (11:33)
[2022-05-14] MEDS ORDERED: NS 0.9% VIAL 10 ML ONE (11:54)
[2022-05-14] MEDS ORDERED: ONDANSETRON 4 MG/2 ML VIAL ONE (11:54)
[2022-05-14] MEDS ORDERED: CEFAZOLIN SODIUM 1 GM/VIAL ONE (11:54)
[2022-05-14] MEDS ORDERED: dexAMETHasone 10 MG/ML VIAL ONE (11:57)
[2022-05-14] MEDS ORDERED: DIPHENHYDRAMINE 50 MG/ML VIAL ONE (12:07)
[2022-05-14] MEDS ORDERED: Ringers Lactate 1,000 ML IV ONE (12:16)
[2022-05-14 12:49] VITALS: O2SAT 97
[2022-05-14 13:15] VITALS: BP 103/50; TEMP 97.6
[2022-05-14] MEDS ORDERED: HYDROCODONE/APAP 5/325 MG TAB ONE (13:22)
[2022-05-14] MEDS ORDERED: CLINDAMYCIN 900MG/D5W 900 MG/50 ML IVPB IV SCH (17:00)
--- NOTE | 2022-05-14 21:17 | DS ---
Date of Discharge: 05/14/2022 Discharge Diagnoses: 1.Intrauterine , 8 weeks of demise. 2.Inevitable . 3.Vaginal bleeding. 4.Severe pelvic pain. 5.Poor obstetrical history. Procedure Performed: Suction D and C. Discharge Disposition: Home. Condition: Stable. Prescription: None given by me, however, patient has previous prescription given by the emergency ro om physician. She was instructed to fill the prescription and continue that medication. Followup: Patient may stay off work for 5 days. However, advised to see an REPAIRER HELPER for followup 2-4 weeks. Diet: She may have a regular diet at home. Hospital Course: Daniella Gallego is a 32-year-old white female, G5, P2, 2 SAB 8 weeks' . No heart tones with severe vaginal bleeding and pain. in progress, [facility] taken and patient agrees for D and C procedure with informed risk, benefit, and options. She underwent D and C without any problems. There was no excessive bleeding. Postoper atively, I visited her in PACU. Her uterus was firm with no further vaginal bleeding. The result of the D and C was excellent. She was given discharge instructions by the nursing staff as above and s he was sent home in good and stable conditions. Hemodynamically, she was stable with a stable H and H and her Rh type is positive. JUAN MANUEL/MARIA DEL CARMEN Voice ID: [id number] Report ID: [id number]
--- NOTE | 2022-05-14 22:58 | OP ---
Date of Procedure: 05/14/2022 Surgeon: Keith Nagel Outreach Librarian: airdrop systems technician. Anesthesiologist: SOPHIE. Preoperative Diagnoses: 1.Intrauterine , 8 weeks, demise. 2.Inevitable . 3.Vaginal bleeding. 4.Pelvic pain. 5.Poor obstetrical history. Postoperative Diagnoses: 1.Intrauterine , 8 weeks, demise. 2.Inevitable . 3.Vaginal bleeding. 4.Pelvic pain. 5.Poor obstetrical history. Procedure Performed: Suction dilatation and curettage. Complications: None. Patient tolerated the procedure well. Specimen: Obtained, sent to Pathology for evaluation. Indications: Daniella Gallego is a 32-year-old white female G5, P2, with a 2 prior history of C-sectio ns and knows that she got before April and she was confirmed around the [facility] [place] as holiday. However, she has suffered "sepsis." During that time, she was transported by [facility] to [place] for high risk care. The patient apparently at that time has kidney infection and some type of kidney stone. Apparently, she also stated that she had a "tube" placement. She is a poor h istorian. However, I do understand that she has a long multiple history of genitourinary infection i ncluding infection during prior pregnancies. Besides 2 sections, and she has an 11-year-old girl and a 7-year-old girl, she also had 2 miscarriages right around 13 weeks of gestation. She fir st had a miscarriage followed by a , followed by a miscarriage, followed by a repeat C-secti on, above all her history. She is not a smoker. She denies any alcohol abuse, and family history is unremarkable and noncontributory. She came into the emergency room on 05/13/2022, complaining of pain, vaginal spotting. Ultrasound wa s done showing a measurement consistent with 8 weeks of without any heart tones. Mat ernal vitals; hemodynamically she was stable. She was sent home. Gave spontaneous precauti on. Advised follow up with a physician and a prescription for some pain killers. However, patient r eturned during the next morning with more severe vaginal bleeding, unbearable pain, in distress, and requesting re-evaluation. During the emergency room evaluation, she was bleeding quite heavy, bright red blood. Cervical os was opened with some tissues, was able to be attended by the emergency docto rivera I was notified and came into the hospital for evaluation and confirmed and reviewed the chart of the diagnosis. Counseling was done and the risks, benefits, options all per medical condition and pl anned procedure were all discussed. The patient agreed for suction D and C. She is Rh positive. H and H were stable. She was brought into the operating room, underwent general endotracheal anesthesi a. Her legs were placed up on lithotomy position. Her bladder was catheterized by straight cath in and out, sterile technique and her vaginal area prepped and washed by using diluted Betadine solution . Her position was in dorsal lithotomy position. After that, she was draped in a sterile fashion. The pelvic examination revealed a very anteflexed uterus about 8-10 weeks in size and cervix with a f ingertip opening. A weighted speculum was placed in the posterior vagina with a retraction of the an terior vagina. Cervix was able to be exposed. A ring forceps was used to grasp the anterior cervica l lip, pulled toward the vaginal opening, and the cervical os easily accommodated #20 Hegar dilator. I selected a #8 curved curette with a suction pressure brought to 50 cm of mercury. My curette inse rted into the fundus with a slow, twisting, circular withdrawal motion, blood and tissue was able to be obtained and this followed by few linear stroke and also I used a sharp curette to confirm good ut erine crying sound on the uterus, now the D and C terminated. No excessive bleeding. EBL 100 cc. S pecimen obtained, sent to Pathology for evaluation. The patient transferred to PACU for further care . Anesthesia: General endotracheal anesthesia. Estimated Blood Loss: About 100 cc in the operating room. JUAN MANUEL/MARIA DEL CARMEN Voice ID: [id number] Report ID: [id number]
--- NOTE | 2022-05-16 14:25 | EKG ---
Test Date: 2022-05-14 Test Time: 09:50:54 Gas Pump Attendant: MARCY MEASUREMENT RESULTS: Intervals: Rate: 77 MI: 156 QRSD: 84 QT: 372 QTc: 420 [place]: P: 70 MI: 156 QRS: 79 T: 62 INTERPRETIVE STATEMENTS: Normal sinus rhythm Normal ECG Compared to ECG 06/05/2016 16:41:43 Sinus tachycardia no longer present T-wave abnormality no longer present Electronically Signed On 05-16-22 14:23:21 TRAVEL NURSE by Odell Griffith
== END 2022-05-14 13:55 | disposition home or self-care (01) ==
LOC: ER 09:00 → ERHOLD 09:36
PROVIDERS: ADMIT Obstetrics & Gynecology; ATTEND Obstetrics & Gynecology
PROC: 10D17Z9 Manual Extraction of Products of Conception, Retained, Via Natural or Artificial Opening (ICD-10-PCS; principal; 2022-05-14 11:30)
DX: O03.4 Incomplete spontaneous abortion without complication (principal); O03.1 Delayed or excessive hemorrhage following incomplete spontaneous abortion; R10.2 Pelvic and perineal pain; Z20.822 Contact with and (suspected) exposure to COVID-19
CPT/HCPCS: 93005; 85025; 36415; 86900; 85610; 86901; 88305; 84702; 80053; 96372; 99291; 87811; 59812; J2704; J0330; J1200; J2001; J2250 ×2; J3010; J1100; A4216; J1170; J7120; J2405; J0690; G0378; J2210; J2590

== ENCOUNTER 2022-06-21 13:29 | Emergency (ER) | payer OTHER ==
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
[2022-06-21 15:34] VITALS: BP 127/77; TEMP 99; O2SAT 99
== END 2022-06-21 14:51 | disposition home or self-care (01) ==
LOC: ER 13:29
DX: Z04.1 Encounter for examination and observation following transport accident (principal); V49.40XA Driver injured in collision with unspecified motor vehicles in traffic accident, initial encounter
CPT/HCPCS: 99281

== ENCOUNTER 2022-10-06 11:39 | Emergency (ER) | payer OTHER ==
--- OUTSIDE RECORDS SUMMARY | 2022-10-06 11:45 | XMS REPORT | Continuity of Care Document ---
:1990 Author Organization [facility] t Address [address] [place] [address] Care Team Providers Name Role Phone CATALINA NATARAJAN Primary Care Physician Unavailable GISELLE DAWN Attending Clinician Unavailable Doctor Unassigned, [place] Attending Clinician Unavailable Constance Serrano RN Attending Clinician ELISA MARCIAL Attending Clinician Unavailable Elisa Marcial MD Attending Clinician Zain Patrick MD Attending Clinician Renetta Chambers MD Attending Clinician Leanne Birmingham MD Attending Clinician [phone] Pippa_Baljinder Attending Clinician Unavailable CATALINA NATARAJAN Attending Clinician Unavailable MEKA MONTGOMERY Attending Clinician Unavailable Meka Montgomery DO Attending Clinician STEPHON ALATORRE Attending Clinician Unavailable Stephon Alatorre DO Attending Clinician Faculty, [facility] Attending Clinician Unavailable Tierney Sheehan MD Attending Clinician [facility] Attending Clinician [phone] JOSÉ MIGUEL DONIS Attending Clinician Unavailable ELISA MARCIAL Admitting Clinician Unavailable Aniket RODRIGUEZ, Elisa Admitting Clinician BaMedardo Admitting Clinician Unavailable ROSA ISELACATALINA Sparks Admitting Clinician Unavailable STEPHON ALATORRE Admitting Clinician Unavailable Payers Payer Name Policy Type Policy Number Effective Date Expiration Date [id number] 2020 CHOICE [place] STAR 00:00:00 MEDICAID COMM [id number] 2021 HEALTH CHOICE 00:00:00 MEDICAID PENDING PENDING 2020 00:00:00 Problems Condition Condition Condition Status Onset Resolution Last Treating Co mments Source Name Details Category Date Date Treatment Clinician Date Abdominal Abdominal Disease Active 2021-05 Uni vers pain pain 2-12 ity of 00:00: Medical Branch Left Left Disease Active 2021-05 Overview: Univer s ureteral ureteral 2-11 Formattin ity of stone stone 00:00: g of this [place] note Medical might be Branch different from the original. Added automatic ally from request for surgery [id number] Trichomona Trichomona Disease Active Overview : Univers l l 5-14 Formattin ity of vulvovagin vulvovagin 00:00: g of this [place] itis itis 00 note Medical might be Branch different from the original. Pending fabio Susceptibl Susceptibl Disease Active Overview : Univers e to e to 08-27 Formattin ity of varicella varicella 00:00: g of this [place] (non-immun (non-immun 00 note Me dical e), e), might be Branch currently currently different from the original. Address pp History of History of Disease Active U nivers miscarriag miscarriag 08-26 it y of e e 00:00: [place] 00 Medical Branch History of History of Disease Active Overview : Univers UTI UTI 08-26 Formattin ity of 00:00: g of this note Medical might be Branch different from the original. Reports she is currently on bactrim Urinary Urinary Disease Active Univers tract tract 12-26 ity of infection infection 00:00: Mario Alberto muñiz with with 00 Medical hematuria, hematuria, Br anch site site unspecifie unspecifie d d Acute Acute Disease Active Univers intractabl intractabl 12-26 it y of e e 00:00: [place] headache, headache, [facility] unspecifie unspecifie Br anch d headache d headache type type Migraine Migraine Disease Active Unive rs without without 12-26 ity of aura and aura and 00:00: [place] without without 00 Medical status status Branch migrainosu migrainosu s, not s, not intractabl intractabl e e 39 weeks 39 weeks Disease Active Unive rs gestation gestation 01-08 ity of of of 00:00: [place] 00 [facility] H/O H/O Disease Active Univers 01-08 ity of section section 00:00: [place] complicati complicati 00 Me dical ng ng Branch Anxiety Anxiety Disease Active Univers and and 01-08 ity of depression depression 00:00: [place] Chronic Chronic Disease Active Univers post-traum post-traum 01-08 it y of atic atic 00:00: [place] stress stress 00 Medical disorder disorder Branch Liveborn Liveborn Disease Active Unive rs by by 01-08 ity of 00:00: Mario Alberto muñiz 00 Medical Branch Susceptibl Susceptibl Disease Active Overview : Univers e to e to 4-14 Address ity of varicella varicella 00:00: PP Mario Alberto muñiz (non-immun (non-immun 00 Me dical e), e), Branch currently currently Multiparit Multiparit Disease Active U nivers y y 4-12 ity of 00:00: [place] 00 Medical Branch Acute Acute Disease Active Univers nonsuppura nonsuppura 3-09 it y of tive tive 00:00: [place] otitis otitis 00 Medical media of media of Branch right ear right ear Supervisio Supervisio Disease Active U nivers n of high n of high 2-20 ity of risk risk 00:00: [place] , , 00 Me dical antepartum antepartum Br anch Obesity Obesity Disease Active Univers affecting affecting 2-20 [place] of 00:[place] Disease Active Overview: Univers with with 2-20 Formattin ity of history of history of 00:00: g of this [place] 00 note Medica l section, section, might be Bran ch antepartum antepartum different from the original. x2 Low transvers e, see records Nausea and Nausea and Disease Active U nivers vomiting vomiting 2-20 ity of during during 00:00: [place] 00 Medi boaz prior to prior to Branch 22 weeks 22 weeks gestation gestation Back pain Back pain Disease Active Uni vers affecting affecting 2-20 [place] of 00:[place] Allergies, Adverse Reactions, Alerts Allergy Allergy Status Severity Reaction(s) Onset Inactive Treating Comm ents Source Name Type Date Date Clinician CEFTRIAX DRUG Active Unknown-Cmnt 2021-05 Un deirdre ONE INGREDI 2-12 ity of 00:00: [place] 00 Medical Branch Ceftriax Propensi Active Unknown - 2021-05 On Uni vers one ty to See comments 06-13 transferr i ty of adverse 00:00: ing hosp [place] reaction 00 record Medical s Per Branch patient, Nausea when administe ring NO KNOWN Allergy Active [facility] NO KNOWN Drug Active [facility] [place] ALLERGIE Class ity of S [facility] Family History Family Member Diagnosis Comments Start Date Stop Date Source Natural father No Significant Univer sity of [place] Medical Problems Medical Branch Natural mother No Significant Univer sity of [place] Medical Problems Medical Branch Social History Social Habit Start Date Stop Date Quantity Comments Source ASSERTION 2020-07-30 University of 00:00:00 [place] Medical Branch History SDOH 2022-04-13 2022-04-13 1 University o f Alcohol Frequency 00:00:00 00:00:00 [place] M edical Branch History SDOH 2022-04-13 2022-04-13 0 University o f Alcohol Std 00:00:00 00:00:00 [place] Medical Drinks Branch History SDOH 2022-04-13 2022-04-13 1 University o f Alcohol Binge 00:00:00 00:00:00 [place] Medic al Branch Alcohol intake 2022-04-13 2022-04-13 Ex-drinker [facility] 00:00:00 00:00:00 (finding) [facility] Exposure to 2022-04-02 2022-04-12 Not sure [facility] SARS-CoV-2 00:00:00 14:35:00 [facility] (event) [place] Tobacco use and 2022-04-12 2022-04-12 Smokeless tobacco Un iversity of exposure 00:00:00 00:00:00 non-user [facility] Sex Ass[birth year] At [birth year] Universit y of 00:00:00 00:00:00 [place] [facility] Smoking Status Start Date Stop Date Source Never smoked tobacco [facility] Medications Ordered Filled Start Stop Current Ordering Indication Dosage Frequency Signature Comments Components Source Medication Medication Date Date Medication? Clinician (SIG) Name Name sulfamethox 2021-05- No 1{tbl} Take 1 U nivers azole-trime 2-17 12-17 tablet by it y of 08:44: 00:00 mouth [place] 800-160 mg 15 :00 daily. Medical per tablet Branch cephALEXin 2021-05 Yes [id number] 500mg Take 1 Univers 500 mg 2-17 capsule by ity of capsule 00:00: mouth [place] 00 every 6 Medical (six) Branch hours. hydrocortis 2021-05 Yes [id number] 15mL Take 15 mL Univers one 1 mg/4 2-17 by mouth ity o f mL in 00:00: every 6 [place] nystatin 00 (six) Medical suspension- hours. Branch diphenhydrA MINE solution suspension cephALEXin 2021-05 Yes [id number] 500mg Take 1 Univers 500 mg 2-17 capsule by ity of capsule 00:00: mouth [place] 00 every 6 Medical (six) Branch hours. hydrocortis 2021-05 Yes [id number] 15mL Take 15 mL Univers one 1 mg/4 2-17 by mouth ity o f mL in 00:00: every 6 [place] nystatin 00 (six) Medical suspension- hours. Branch diphenhydrA MINE solution suspension cephALEXin 2021-05 Yes [id number] 500mg Take 1 Univers 500 mg 2-17 capsule by ity of capsule 00:00: mouth [place] 00 every 6 Medical (six) Branch hours. hydrocortis 2021-05 Yes [id number] 15mL Take 15 mL Univers one 1 mg/4 2-17 by mouth ity o f mL in 00:00: every 6 [place] nystatin 00 (six) Medical suspension- hours. [place] diphenhydrA MINE solution suspension cephALEXin 2021-05 Yes [id number] 500mg Take 1 Univers 500 mg 2-17 capsule by ity of capsule 00:00: mouth [place] 00 every 6 Medical (six) Branch hours. hydrocortis 2021-05 Yes [id number] 15mL Take 15 mL Univers one 1 mg/4 2-17 by mouth ity o f mL in 00:00: every 6 [place] nystatin 00 (six) Medical suspension- hours. [place] diphenhydrA MINE solution suspension cephALEXin 2021-05- No 500mg 500 mg, Un deirdre (KEFLEX) 2-17 - Oral, Q6H, ity of capsule 500 00:00: 23:59 24 doses, [place] mg 00 :00 First dose Medical on Tue Branch 04/16/22 at 1800, Last dose on [place] 04/22/22 at 1200, BLANCA
Re ason for Anti-Infec tive: Documented Infection< br>Documen izzy Infection Site: Blood
D uration of Therapy: Other (see Comments) psyllium 2021-05 Yes 1{packe 1 Packet, U nivers husk 2-16 t} Oral, ity of (METAMUCIL 15:00: DAILY, [place] (SUGAR 00 First dose Medical FREE)) 3.4 on Tue Branch gram oral 04/16/22 powder at 0900, packet 1 Until Packet Discontinu ed, Routine cefTRIAXone 2021-05 No 2000mg 2,000 mg, Univers (ROCEPHIN) 2-15 16 Intravenou it y of 2,000 mg in 20:45: 21:27 s, Q24H [place] water for 00 :13 ABX, 7 Medical injection, doses, Branch sterile 20 First dose mL SIVP on [place] syringe 04/15/22 at 1445, Last dose on 04/21/22 at 1445, 20 mL
Reas on for Anti-Infec tive: Documented Infection< br>Documen izzy Infection Site: Blood
D uration of Therapy: 7 days sucralfate 2021-05 Yes 1g 1,000 mg Uni vers (CARAFATE) 2-15 (1 g), ity of 100 mg/mL 16:00: Oral, [place] suspension 00 AC+HS, Medical 1,000 mg First dose Branc h on [place] 04/15/22 at 1000, Until Discontinu ed, Routine potassium 2021-05 20meq 20 mEq, IV Univers chloride in -14 Piggyback, i ty of water (KCL) 18:00: 19:33 ONCE, 1 [place] 20 mEq/100 00 :00 dose, On Medic al mL RTU IVPB Tue [place] 20 mEq 04/14/22 at 1200, 100 mL chlorhexidi 2021-05 Yes 15mL 15 mL, Univ ers ne 2-14 Oral ity of (PERIDEX) 14:00: ([place] 0.12 % 00 Spit Out), Medical mouthwash BID, First Bran ch 15 mL dose on Tue04/14/22 at 0800, Until Discontinu ed, Routine [place]'s 2021-05 Yes 15mL 15 mL, Univers magic 2-14 Oral, Q6H, ity of mouthwash 12:00: First dose [place] (([facility]MB 00 on Tue Medical COMPOUND)) 04/14/22 Branc h suspension at 0600, 15 mL Until Discontinu ed, Routine acetaminoph 2021-05 Yes 650mg 650 mg, Un deirdre en 2-14 Oral, ity of (TYLENOL) 07:38: Q6HPRN, [place] tablet 650 15 Starting Medic al mg on [facility] Branch 04/14/22 at 0138, Until Discontinu ed, Routine, Pain (scale 1-3) gabapentin 2021-05 Yes 300mg 300 mg, Uni vers (NEURONTIN) 2-14 Oral, TID, it y of capsule 300 04:15: First dose [place] mg 00 on [facility] 04/13/22 Branch at 2215, Until Discontinu ed, Routine oxybutynin 2021-05 Yes 5mg 5 mg, Univer s chloride 2-14 Oral, ity of (DITROPAN) 04:09: TIDPRN, [place] tablet 5 mg 05 Starting Medi boaz on [facility] Branch 04/13/22 at 2209, Until Discontinu ed, Routine, Bladder spasms ketorolac 2021-05- No 30mg 30 mg, Unive rs (TORADOL) 2-14 18 Slow IV ity of injection 04:07: 04:06 Push, [place] 30 mg 51 :51 Q6HPRN, Medical Starting Branch on Tue04/13/22 at 2207, Until 04/17/22 at 2206, BLANCA, Pain (scale 7-10) cyclobenzap 2021-05 Yes 5mg 5 mg, Unive rs rine 2-14 Oral, TID, ity of (FLEXERIL) 02:00: First dose [place] tablet 5 mg [facility] Branch at 1999, Until Discontinu ed, Routine potassium 2021-05 No 20meq 20 mEq, IV Univers chloride in 06-15 Piggyback, i ty of water (KCL) 02:00: 07:30 Q2H, 2 [place] 20 mEq/100 00 :00 doses, Medical mL RTU IVPB First dose Br anch 20 mEq on Tue04/13/22 at 1999, Last dose on Tue04/13/22 at 2199, 100 mL morpHINE (2 2021-05 Yes 2mg 2 mg, Slow Univers mg/mL) 06-15 IV Push, ity of injection 2 01:15: Q6HPRN, [place] mg 00 Starting Medical on [facility] 04/13/22 at 1915, Until Discontinu ed, Routine, Pain (scale 7-10) ertapenem 2021-05 No 1000mg 1,000 mg, Univers (INVANZ) 06-14 IV ity of 1,000 mg in 23:15: 23:14 Piggyback, [place] NaCl 0.9% 00 :00 Q24H ABX, Medic al (NS) 50 mL 10 doses, Bran ch MINI-BAG First dose on Tue04/13/22 at 1715, Last dose on [place] 04/22/22 at 1715, Administer over 30 Minutes, 50 mL
Reas on for Anti-Infec tive: Documented Infection< br>Documen izzy Infection Site: Blood
D uration of Therapy: 7 days
Re stricted use approved by: RASHEEDA BATEMAN, ADULT ID ertapenem 2021-05- No 1000mg 1,000 mg, Univers (INVANZ) 06-14 IV ity of 1,000 mg in 23:15: 19:[facility] [place] NaCl 0.9% 00 :16 Q24H ABX, Medic al (NS) 50 mL 10 doses, Bran ch MINI-BAG First dose on Tue04/13/22 at 1715, Last dose on [place] 04/22/22 at 1715, Administer over 30 Minutes, 50 mL
Reas on for Anti-Infec tive: Documented Infection< br>Documen izzy Infection Site: Blood
D uration of Therapy: 7 days
Re stricted use approved by: RASHEEDA BATEMAN, ADULT ID acetaminoph 2021-05- No 1000mg 1,000 mg, Univers en ADULT 06-14 IV ity of (OFIRMEV) 07:30: 06:50 Infusion, [place] injection 00 :00 at 400 Medical 1,000 mg mL/hr Branch Administer over 15 Minutes, ONCE, 1 dose, On Tue04/13/22 at 0130, Routine, PACU
In dication: Perioperat ada Patient sodium 2021-05- No PRN, Univers chloride 06-14 Starting ity of 0.9 % 04:42: 06:05 on [facility] irrigation 00 :53 04/12/22 Medic al solution at 2242, Branch Until Tue04/13/22 at 0005, Intra-op morpHINE (2 2021-05- No PRN, Unive rs mg/mL) 06-13 Starting ity of injection 23:26: 23:26 on [facility] 29 :29 04/12/22 Medical at 1726, Branch Until Tue04/12/22 at 1726, Routine piperacilli 2021-05- No 3.375g 3.375 g, Univers n-tazobacta 06-13 IV ity of m (ZOSYN) 22:45: 22:09 Piggyback, [place] 3.375 g in 00 :28 Q8H ABX, Medic al NaCl 0.9% 15 doses, Branc h (NS) 50 mL First dose MINI-BAG on Tue04/12/22 at 1645, Last dose on 04/17/22 at 0845, Administer over 4 Hours, 50 mL
Reas on for Anti-Infec tive: Documented Infection& lt;br>Docu mented Infection Site: Urine
D uration of Therapy: 7 days FENTanyl PF 2021-05- No Slow IV Un deirdre (SUBLIMAZE 06-1312 Push, PRN, it y of (PF)) 19:11: 19:11 Starting [place] injection 58 :58 on [facility] Medical 04/12/22 Branch at 1311, Until Tue04/12/22 at 1311, Routine FENTanyl PF 2021-05- No Slow IV Un deirdre (SUBLIMAZE 06-13-12 Push, PRN, it y of (PF)) 18:51: 18:51 Starting [place] injection 47 :47 on [facility] 04/12/22 Branch at 1251, Until Tue04/12/22 at 1251, Routine FENTanyl PF 2021-05- No Slow IV Un deirdre (SUBLIMAZE 06-1312 Push, PRN, it y of (PF)) 18:39: 18:39 Starting [place] injection 12 :12 on [facility] Medical 04/12/22 Branch at 1239, Until Tue04/12/22 at 1239, Routine acetaminoph 2021-05- No PRN, Unive rs en 06-13 Starting ity of (TYLENOL) 17:39: 17:39 on [facility] [place] tablet 50 :50 04/12/22 Medical at 1139, Branch Until Tue04/12/22 at 1139, Routine NaCl 0.9% 2021-05 Yes 1000mL at 150 Univ ers (NS) IV 2-12 mL/hr, IV ity of infusion 15:30: Infusion, [place] 1,000 mL 00 CONTINUOUS Medic al , Starting Branch on Tue04/12/22 at 0930, Until Discontinu ed, Routine NaCl 0.9% 2021-05- No 1000mL at 150 Uni vers (NS) IV 2-12 12-14 mL/hr, IV ity of infusion 15:30: 19:22 Infusion, [place] 1,000 mL 00 :13 CONTINUOUS Medic al , Starting Branch on Tue04/12/22 at 0930, Until Tue04/14/22 at 1322, Routine tamsulosin 2021-05 Yes .4mg 0.4 mg, Univ ers (FLOMAX) 2-12 Oral, ity of capsule 0.4 15:00: DAILY, [place] mg 00 First dose Medical on [facility] Branch 04/12/22 at 0900, Until Discontinu ed, Routine sennosides 2021-05 Yes 8.6mg 8.6 mg, Uni vers (SENOKOT) 2-12 Oral, ity of tablet 8.6 15:00: DAILY, [place] mg 00 First dose Medical on [facility] 04/12/22 at 0900, Until Discontinu ed, Routine tamsulosin 2021-05 Yes .4mg 0.4 mg, Univ ers (FLOMAX) 2-12 Oral, ity of capsule 0.4 15:00: DAILY, [place] mg 00 First dose Medical on [facility] 04/12/22 at 0900, Until Discontinu ed, Routine sennosides 2021-05 Yes 8.6mg 8.6 mg, Uni vers (SENOKOT) 2-12 Oral, ity of tablet 8.6 15:00: DAILY, [place] mg 00 First dose Medical on [facility] 04/12/22 at 0900, Until Discontinu ed, Routine piperacilli 2021-05- No 3.375g 3.375 g, Univers n-tazobacta 06-13 IV ity of m (ZOSYN) 15:00: 17:25 Piggyback, [place] 3.375 g in 00 :00 ONCE, 1 Medica l NaCl 0.9% dose, On Branch (NS) 50 mL Mon MINI-BAG 04/12/22 at 0900, Administer over 30 Minutes, 50 mL
Reas on for Anti-Infec tive: Empiric Therapy for Suspected Infection< br>Empiric Therapy Site: Urine
D uration of therapy: 72 hours morpHINE (2021-05 Yes 2mg 2 mg, Slow Univers mg/mL) 06-13 IV Push, ity of injection 2 13:59: Q4HPRN, [place] mg 11 Starting Medical on [facility] 04/12/22 at 0759, Until Discontinu ed, Routine, Pain (scale 7-10) morpHINE (2021-05- No 2mg 2 mg, Slow Univers mg/mL) 2-12 12-14 IV Push, ity of injection 2 13:59: 01:13 Q4HPRN, [place] mg 11 :02 Starting Medical on Tue Branch 04/12/22 at 0759, Until Tue04/13/22 at 1913, Routine, Pain (scale 7-10) D5W 0.45% 2021-05- No 1000mL at 150 Uni vers NaCl 06-13 mL/hr, ity of (1/2NS) IV 13:00: 14:18 1,000 mL, [place] infusion 00 :52 IV Medical 1,000 mL Infusion, Branch CONTINUOUS , Starting on Tue04/12/22 at 0700, Until Tue04/12/22 at 0818, Routine morpHINE (2 2021-05- No 2mg 2 mg, Slow Univers mg/mL) 06-13 IV Push, ity of injection 2 12:27: 14:02 Q4HPRN, [place] mg 25 :37 Starting Medical on Tue Branch 04/12/22 at 0627, Until Tue04/12/22 at 0802, Routine, Pain (scale 4-6), Pain (scale 7-10) acetaminoph 2021-05 No 650mg 650 mg, U nivers en 06-13 Oral, ONCE ity of (TYLENOL) 09:45: 09:23 NOW, 1 [place] tablet 650 00 :00 dose, On Medic al mg Tue Branch 04/12/22 at 0345, Routine acetaminoph 2021-05 Yes 650mg 650 mg, Un deirdre en 06-13 Oral, ity of (TYLENOL) 09:32: Q6HPRN, [place] tablet 650 49 Starting Medic al mg on Tue Branch 04/12/22 at 0332, Until Discontinu ed, Routine, Pain (scale 1-3) acetaminoph 2021-05 No 650mg 650 mg, U nivers en 06-13 Oral, ity of (TYLENOL) 09:32: 07:35 Q6HPRN, [place] tablet 650 49 :20 Starting Medic al mg on Tue Branch 04/12/22 at 0332, Until Tue04/14/22 at 0135, Routine, Pain (scale 1-3) ondansetron 2021-05 Yes 4mg 4 mg, Slow Univers (ZOFRAN 2-12 IV Push, ity of (PF)) 09:30: Q4HPRN, [place] injection 4 04 Starting Medi boaz mg on Tue Branch 04/12/22 at 0330, Until Discontinu ed, Routine, Nausea and Vomiting (N/V) ondansetron 2021-05 Yes 4mg 4 mg, Slow Univers (ZOFRAN 2-12 IV Push, ity of (PF)) 09:30: Q4HPRN, [place] injection 4 04 Starting Medi boaz mg on Tue Branch 04/12/22 at 0330, Until Discontinu ed, Routine, Nausea and Vomiting (N/V) sulfamethox 2021-05 Yes 1{tbl} Take 1 Un deirdre azole-trime 2-12 tablet by ity of thoprim 06:35: mouth [place] 800-160 mg 03 daily. Medical per tablet Branch sulfamethox 2021-05 Yes 1{tbl} Take 1 Un deirdre azole-trime 2-12 tablet by ity of thoprim 06:35: mouth [place] 800-160 mg 03 daily. Medical per tablet Branch sulfamethox 2021-05 Yes 1{tbl} Take 1 Un deirdre azole-trime 2-12 tablet by ity of thoprim 06:35: mouth [place] 800-160 mg 03 daily. Medical per tablet Branch sulfamethox 2021-05 Yes 1{tbl} Take 1 Un deirdre azole-trime 2-12 tablet by ity of thoprim 06:35: mouth [place] 800-160 mg 03 daily. Medical per tablet Branch ciprofloxac 2021- No [id number] 3[drp] Place 3 Univers in-hydrocor 3-20 - [id number] Drops in it y of tisone 00:00: 04:59 right ear [place] (CIPRO HC) 00 :00 2 (two) Medica l otic times Branch suspension daily for 7 days. predniSONE 2021- No [id number] 50mg Take 5 Univers 10 mg 3-20 -26 tablets by ity of tablet 00:00: 04:59 mouth [place] 00 :00 daily for Medical 5 days. Branch HYDROcodone 2020-05- No 1{tbl} 1 tablet, Univers -acetaminop 1-05 11-04 Oral, ity of hen (NORCO) 00:15: 23:18 ONCE, 1 [place] 10-325 mg 00 :00 dose, On Medica l tablet 1 [place] Branch tablet 03/05/21 at 1915, Routine naproxen 2020-05 Yes [id number] 550mg Take 1 Univers sodium 05-05 [id number] tablet by ity of (ANAPROX 00:00: mouth 2 [place] DS) 550 mg 00 (two) Medical tablet times Branch daily with meals. methylPREDN 2020-05 Yes [id number] Take by Univers ISolone 05-05 [id number] mouth ity of (MEDROL, 00:00: SEE-INSTRU [place] YANIQUE,) 4 mg 00 CTIONS. Medica l tablets follow Branch package directions naproxen 2020-05 Yes [id number] 550mg Take 1 Univers sodium 05-05 [id number] tablet by ity of (ANAPROX 00:00: mouth 2 [place] DS) 550 mg 00 (two) Medical tablet times Branch daily with meals. methylPREDN 2020-05 Yes [id number] Take by Univers ISolone 05-05 [id number] mouth ity of (MEDROL, 00:00: SEE-INSTRU [place] YANIQUE,) 4 mg 00 CTIONS. Medica l tablets follow Branch package directions naproxen 2020-05 Yes [id number] 550mg Take 1 Univers sodium 05-05 [id number] tablet by ity of (ANAPROX 00:00: mouth 2 [place] DS) 550 mg 00 (two) Medical tablet times Branch daily with meals. methylPREDN 2020-05 Yes [id number] Take by Univers ISolone 05-05 [id number] mouth ity of (MEDROL, 00:00: SEE-INSTRU [place] YANIQUE,) 4 mg 00 CTIONS. Medica l tablets follow Branch package directions naproxen 2020-05 Yes [id number] 550mg Take 1 Univers sodium 05-05 [id number] tablet by ity of (ANAPROX 00:00: mouth 2 [place] DS) 550 mg 00 (two) Medical tablet times Branch daily with meals. methylPREDN 2020-05 Yes [id number] Take by Univers ISolone 05-05 [id number] mouth ity of (MEDROL, 00:00: SEE-INSTRU [place] YANIQUE,) 4 mg 00 CTIONS. Medica l tablets follow Branch package directions naproxen 2020-05 Yes [id number] 550mg Take 1 Univers sodium 05-05 [id number] tablet by ity of (ANAPROX 00:00: mouth 2 [place] DS) 550 mg 00 (two) Medical tablet times Branch daily with meals. methylPREDN 2020-05 Yes [id number] [facility] [id number] mouth ity of (MEDROL, 00:00: SEE-INSTRU [place] YANIQUE,) 4 mg 00 CTIONS. Medica l tablets follow Branch package directions naproxen 2020-05 Yes [id number] 550mg Take 1 Univers sodium 05-05 [id number] tablet by ity of (ANAPROX 00:00: mouth 2 [place] DS) 550 mg 00 (two) Medical tablet times Branch daily with meals. methylPREDN 2020-05 Yes [id number] [facility] [id number] mouth ity of (MEDROL, 00:00: SEE-INSTRU [place] YANIQUE,) 4 mg 00 CTIONS. Medica l tablets follow Branch package directions methylPREDN 2020-05 Yes [id number] Take by [facility] [place] ISolone 05-05 [id number] mouth ity of (MEDROL, 00:00: SEE-INSTRU [place] YANIQUE,) 4 mg 00 CTIONS. Medica l tablets follow Branch package directions methylPREDN 2020-05 Yes [id number] Take by [facility] [place] ISolone 05-05 [id number] mouth ity of (MEDROL, 00:00: SEE-INSTRU [place] YANIQUE,) 4 mg 00 CTIONS. Medica l tablets follow Branch package directions methylPREDN 2020-05 Yes [id number] Take by [facility] [place] ISolone 05-05 [id number] mouth ity of (MEDROL, 00:00: SEE-INSTRU [place] YANIQUE,) 4 mg 00 CTIONS. Medica l tablets follow Branch package directions methylPREDN 2020-05 Yes [id number] Take by [facility] [place] ISolone 05-05 [id number] mouth ity of (MEDROL, 00:00: SEE-INSTRU Beni as YANIQUE,) 4 mg 00 CTIONS. Medica l tablets follow Branch package directions naproxen 2020-052- No [id number] 550mg Take 1 Univers sodium 05-05 [id number] tablet by ity o f (ANAPROX 00:00: 00:00 mouth 2 [place] DS) 550 mg 00 :00 (two) Medical tablet times Branch daily with meals. methocarbam 2020-05- No [id number] 500mg Take 1 Univers oL 500 mg 05-05 [id number] tablet by it y of tablet 00:00: 05:59 mouth 3 [place] 00 :00 (three) Medical times Branch daily for 5 days. metroNIDAZO 2020- No [id number] 2000mg Take 4 Univers LE 500 mg 5-14 05-15 tablets by ity of tablet 00:00: 04[place] now for 1 Medical dose. Branch metroNIDAZO 2020- No [id number] 2000mg Take 4 Univers LE 500 mg 5-14 05-15 tablets by ity of tablet 00:00: 04:59 [place] :[place] now for 1 Medical dose. Branch metroNIDAZO 2020- No [id number] 2000mg Take 4 Univers LE 500 mg 5-14 05-15 tablets by ity of tablet 00:00: 04:59 [place] 00 :[place] now for 1 Medical dose. Branch metroNIDAZO 2020- No [id number] 2000mg Take 4 Univers LE 500 mg 5-14 05-15 tablets by ity of tablet 00:00: 04:59 [place] 00 :[place] now for 1 Medical dose. Branch sulfamethox Yes 1{tbl} Take 1 Un deirdre azole-trime 4-27 tablet by ity of thoprim 19:08: mouth [place] 800-160 mg 15 daily. Medical per tablet Branch sulfamethox Yes 1{tbl} Take 1 Un deirdre azole-trime 4-27 tablet by ity of thoprim 19:08: mouth [place] 800-160 mg 15 daily. Medical per tablet Branch sulfamethox Yes 1{tbl} Take 1 Un deirdre azole-trime 4-27 tablet by ity of thoprim 19:08: mouth [place] 800-160 mg 15 daily. Medical per tablet Branch sulfamethox Yes 1{tbl} Take 1 Un deirdre azole-trime 4-27 tablet by ity of thoprim 19:08: mouth [place] 800-160 mg 15 daily. Medical per tablet Branch sulfamethox Yes 1{tbl} Take 1 Un deirdre azole-trime 4-27 tablet by ity of thoprim 19:08: mouth [place] 800-160 mg 15 daily. Medical per tablet Branch sulfamethox Yes 1{tbl} Take 1 Un deirdre azole-trime 4-27 tablet by ity of thoprim 19:08: mouth [place] 800-160 mg 15 daily. Medical per tablet Branch sulfamethox Yes 1{tbl} Take 1 Un deirdre azole-trime 4-27 tablet by ity of thoprim 19:08: mouth [place] 800-160 mg 15 daily. Medical per tablet Branch sulfamethox Yes 1{tbl} Take 1 Un deirdre azole-trime 4-27 tablet by ity of thoprim 14:08: mouth [place] 800-160 mg 15 daily. Medical per tablet Branch sulfamethox Yes 1{tbl} Take 1 Un deirdre azole-trime 4-27 tablet by ity of thoprim 14:08: mouth [place] 800-160 mg 15 daily. Medical per tablet Branch sulfamethox Yes 1{tbl} Take 1 Un deirdre azole-trime 4-27 tablet by ity of thoprim 14:08: mouth [place] 800-160 mg 15 daily. Medical per tablet Branch proMETHazin Yes [id number] 25mg Take 1 Univers e 25 mg 4-27 tablet by ity of tablet 00:00: mouth [place] 00 every 6 Medical (six) Branch hours as needed for Nausea and Vomiting (N/V). buPROPion Yes [id number] 150mg Take 1 Univers XL 4-27 tablet by ity of (WELLBUTRIN 00:00: mouth [place] XL) 150 mg 00 daily. Medical 24 hr Branch tablet proMETHazin Yes [id number] 25mg Take 1 Univers e 25 mg 4-27 tablet by ity of tablet 00:00: mouth [place] 00 every 6 Medical (six) Branch hours as needed for Nausea and Vomiting (N/V). buPROPion Yes [id number] 150mg Take 1 Univers XL 4-27 tablet by ity of (WELLBUTRIN 00:00: mouth [place] XL) 150 mg 00 daily. Medical 24 hr Branch tablet proMETHazin 0 Yes [id number] 25mg Take 1 Univers e 25 mg 4-27 tablet by ity of tablet 00:00: mouth [place] 00 every 6 Medical (six) Branch hours as needed for Nausea and Vomiting (N/V). buPROPion 0 Yes [id number] 150mg Take 1 Univers XL 4-27 tablet by ity of (WELLBUTRIN 00:00: mouth [place] XL) 150 mg 00 daily. Medical 24 hr Branch tablet proMETHazin 0 Yes [id number] 25mg Take 1 Univers e 25 mg 4-27 tablet by ity of tablet 00:00: mouth [place] 00 every 6 Medical (six) Branch hours as needed for Nausea and Vomiting (N/V). buPROPion 0 Yes [id number] 150mg Take 1 Univers XL 4-27 tablet by ity of (WELLBUTRIN 00:00: mouth [place] XL) 150 mg 00 daily. Medical 24 hr Branch tablet proMETHazin 0 Yes [id number] 25mg Take 1 Univers e 25 mg 4-27 tablet by ity of tablet 00:00: mouth [place] 00 every 6 Medical (six) Branch hours as needed for Nausea and Vomiting (N/V). buPROPion 0 Yes [id number] 150mg Take 1 Univers XL 4-27 tablet by ity of (WELLBUTRIN 00:00: mouth [place] XL) 150 mg 00 daily. Medical 24 hr Branch tablet proMETHazin 0 Yes [id number] 25mg Take 1 Univers e 25 mg 4-27 tablet by ity of tablet 00:00: mouth [place] 00 every 6 Medical (six) Branch hours as needed for Nausea and Vomiting (N/V). buPROPion 2020-0 Yes [id number] 150mg Take 1 Univers XL 4-27 tablet by ity of (WELLBUTRIN 00:00: mouth [place] XL) 150 mg 00 daily. Medical 24 hr Branch tablet proMETHazin 2020-0 Yes [id number] 25mg Take 1 Univers e 25 mg 4-27 tablet by ity of tablet 00:00: mouth [place] 00 every 6 Medical (six) Branch hours as needed for Nausea and Vomiting (N/V). buPROPion 2020-0 Yes [id number] 150mg Take 1 Univers XL 4-27 tablet by ity of (WELLBUTRIN 00:00: mouth [place] XL) 150 mg 00 daily. Medical 24 hr Branch tablet proMETHazin 2020-0 Yes [id number] 25mg Take 1 Univers e 25 mg 4-27 tablet by ity of tablet 00:00: mouth [place] 00 every 6 Medical (six) Branch hours as needed for Nausea and Vomiting (N/V). buPROPion 2020-0 Yes [id number] 150mg Take 1 Univers XL 4-27 tablet by ity of (WELLBUTRIN 00:00: mouth [place] XL) 150 mg 00 daily. Medical 24 hr Branch tablet proMETHazin 2020-0 Yes [id number] 25mg Take 1 Univers e 25 mg 4-27 tablet by ity of tablet 00:00: mouth [place] 00 every 6 Medical (six) Branch hours as needed for Nausea and Vomiting (N/V). buPROPion 2020-0 Yes [id number] 150mg Take 1 Univers XL 4-27 tablet by ity of (WELLBUTRIN 00:00: mouth [place] XL) 150 mg 00 daily. Medical 24 hr Branch tablet proMETHazin 2020-0 Yes [id number] 25mg Take 1 Univers e 25 mg 4-27 tablet by ity of tablet 00:00: mouth [place] 00 every 6 Medical (six) Branch hours as needed for Nausea and Vomiting (N/V). buPROPion 2020-0 Yes [id number] 150mg Take 1 Univers XL 4-27 tablet by ity of (WELLBUTRIN 00:00: mouth [place] XL) 150 mg 00 daily. Medical 24 hr Branch tablet proMETHazin 2020-0 Yes [id number] 25mg Take 1 Univers e 25 mg 4-27 tablet by ity of tablet 00:00: mouth [place] 00 every 6 Medical (six) Branch hours as needed for Nausea and Vomiting (N/V). buPROPion 2020-0 Yes [id number] 150mg Take 1 Univers XL 4-27 tablet by ity of (WELLBUTRIN 00:00: mouth [place] XL) 150 mg 00 daily. Medical 24 hr Branch tablet proMETHazin 2020-0 Yes [id number] 25mg Take 1 Univers e 25 mg 4-27 tablet by ity of tablet 00:00: mouth [place] 00 every 6 Medical (six) Branch hours as needed for Nausea and Vomiting (N/V). buPROPion 2020-0 Yes [id number] 150mg Take 1 [facility] XL 4-27 tablet by ity of (WELLBUTRIN 00:00: mouth [place] XL) 150 mg 00 daily. Medical 24 hr Branch tablet proMETHazin 2020-0 Yes [id number] 25mg Take 1 Univers e 25 mg 4-27 tablet by ity of tablet 00:00: mouth [place] 00 every 6 Medical (six) Branch hours as needed for Nausea and Vomiting (N/V). buPROPion 2020-0 Yes [id number] 150mg Take 1 [facility] XL 4-27 tablet by ity of (WELLBUTRIN 00:00: mouth [place] XL) 150 mg 00 daily. Medical 24 hr Branch tablet proMETHazin 0 Yes [id number] 25mg Take 1 Univers e 25 mg 4-27 tablet by ity of tablet 00:00: mouth [place] 00 every 6 Medical (six) Branch hours as needed for Nausea and Vomiting (N/V). buPROPion 2020-0 Yes [id number] 150mg Take 1 Univers XL 4-27 tablet by ity of (WELLBUTRIN 00:00: mouth [place] XL) 150 mg 00 daily. Medical 24 hr Branch tablet proMETHazin 0 Yes [id number] 25mg Take 1 Univers e 25 mg 4-27 tablet by ity of tablet 00:00: mouth [place] 00 every 6 Medical (six) Branch hours as needed for Nausea and Vomiting (N/V). buPROPion 2020-0 Yes [id number] 150mg Take 1 Univers XL 4-27 tablet by ity of (WELLBUTRIN 00:00: mouth [place] XL) 150 mg 00 daily. Medical 24 hr Branch tablet proMETHazin 2020-0 Yes [id number] 25mg Take 1 Univers e 25 mg 4-27 tablet by ity of tablet 00:00: mouth [place] 00 every 6 Medical (six) Branch hours as needed for Nausea and Vomiting (N/V). buPROPion 2020-0 Yes [id number] 150mg Take 1 Univers XL 4-27 tablet by ity of (WELLBUTRIN 00:00: mouth [place] XL) 150 mg 00 daily. Medical 24 hr Branch tablet proMETHazin 2020-0 Yes [id number] 25mg Take 1 Univers e 25 mg 4-27 tablet by ity of tablet 00:00: mouth [place] 00 every 6 Medical (six) Branch hours as needed for Nausea and Vomiting (N/V). buPROPion Yes [id number] 150mg Take 1 Univers XL 4-27 tablet by ity of (WELLBUTRIN 00:00: mouth [place] XL) 150 mg 00 daily. Medical 24 hr Branch tablet proMETHazin Yes [id number] 25mg Take 1 Univers e 25 mg 4-27 tablet by ity of tablet 00:00: mouth [place] 00 every 6 Medical (six) Branch hours as needed for Nausea and Vomiting (N/V). buPROPion Yes [id number] 150mg Take 1 Univers XL 4-27 tablet by ity of (WELLBUTRIN 00:00: mouth [place] XL) 150 mg 00 daily. Medical 24 hr Branch tablet No known No Univers medications [facility] Vital Signs Vital Name Observation Time Observation Value Comments Source Systolic blood 2022-04-17 14:00:00 125 mm[Hg] Univer sity [facility] Diastolic blood 2022-04-17 14:00:00 76 [facility]Hg[facility]-04-17 14:00:00 68 /min [facility] Body temperature 2022-04-17 14:00:00 36.89 María [facility] Respiratory rate 2022-04-17 14:00:00 16 /min [facility] Oxygen saturation in 2022-04-17 14:00:00 100 /min [facility] Arterial blood by [facility] Pulse oximetry Branch Body weight 2022-04-12 06:46:00 76.204 kg [facility] BMI 2022-04-12 06:46:00 28.84 kg/m2 [facility] Systolic blood 2022-04-13 06:00:00 112 mm[Hg] [facility] blood 2022-04-13 06:00:00 70 mm[Hg] [facility] 2022-04-13 06:00:00 123 /min [facility] Body temperature 2022-04-13 06:00:00 38.72 María [facility] Respiratory rate 2022-04-13 06:00:00 28 /min [facility] [place] [facility] Oxygen saturation in 2022-04-13 06:00:00 33 /min University of Arterial blood by [facility] Pulse oximetry Branch Body weight 2022-04-12 06:46:00 76.204 kg [facility] [place] [facility] [place] BMI 2022-04-12 06:46:00 28.84 kg/m2 [facility] [place] [facility] [place] HEIGHT 2021-10-27 20:40:00 162.6 cm WEIGHT 2021-10-27 20:40:00 61.054 kg HEIGHT 2021-10-27 20:40:00 162.6 cm WEIGHT 2021-10-27 20:40:00 61.054 kg Body height 2021-07-19 22:07:00 162.6 cm [facility] [place] [facility] [place] Body weight 2021-07-19 22:07:00 73.936 kg [facility] [place] [facility] [place] BMI 2021-07-19 22:07:00 27.98 kg/m2 [facility] [place] [facility] Systolic blood 2021-07-19 22:06:50 127 mm[Hg] Univer sity of [facility] [place] [facility] Diastolic blood 2021-07-19 22:06:50 83 mm[Hg] Unive rsity of [facility] [place] [facility] Heart rate 2021-07-19 22:06:50 83 /min [facility] [place] [facility] Body temperature 2021-07-19 22:06:50 36.44 María Univ ersity of [facility] Respiratory rate 2021-07-19 22:06:50 16 /min [facility] [place] [facility] Oxygen saturation in 2021-07-19 22:03:00 98 /min University of Arterial blood by [facility] Pulse oximetry Branch Systolic blood 2021-03-05 23:07:00 151 mm[Hg] Univer sity of [facility] [place] [facility] Diastolic blood 2021-03-05 23:07:00 84 mm[Hg] Unive rsity of [facility] [place] [facility] Heart rate 2021-03-05 23:07:00 74 /min [facility] [place] [facility] [place] Body temperature 2021-03-05 23:07:00 36.44 María [facility] [place] [facility] Respiratory rate 2021-03-05 23:07:00 18 /min [facility] [place] [facility] Oxygen saturation in 2021-03-05 23:07:00 100 /min University of Arterial blood by [facility] Pulse oximetry Branch Systolic blood 2020-08-26 19:04:00 127 mm[Hg] Univer sity [facility] [place] [facility] Diastolic blood 2020-08-26 19:04:00 74 mm[Hg] Unive rsity of pressure [facility] Branch Heart rate 2020-08-26 19:04:00 83 /min [facility] [place] [facility] [place] Body temperature 2020-08-26 19:04:00 36.5 María [facility] [place] [facility] Respiratory rate 2020-08-26 19:04:00 16 /min [facility] [place] [facility] Body height 2020-08-26 19:04:00 162.6 cm [facility] [place] [facility] [place] Body weight 2020-08-26 19:04:00 89.103 kg Universi ty of [facility] BMI 2020-08-26 19:04:00 33.72 kg/m2 [facility] [place] [facility] Systolic blood 2022-04-14 13:54:00 123 mm[Hg] Univer sity of [facility] [place] [facility] Diastolic blood 2022-04-14 13:54:00 69 mm[Hg] Unive rsity of [facility] [place] [facility] Heart rate 2022-04-14 13:54:00 83 /min [facility] [place] [facility] Body temperature 2022-04-14 13:54:00 36.89 María Univ ersity of [facility] Branch Respiratory rate 2022-04-14 13:54:00 17 /min Univ ersity of [facility] Branch Oxygen saturation in 2022-04-14 13:54:00 99 /min University of Arterial blood by [facility] Pulse oximetry Branch Body weight 2022-04-12 06:46:00 76.204 kg [facility] [place] [facility] BMI 2022-04-12 06:46:00 28.84 kg/m2 [facility] [place] [facility] Body height 2021-07-19 22:07:00 162.6 cm Universi ty [facility] [place] [facility] Procedures Procedure Date / Time Performing Clinician Source Performed EMERGENCY SERVICES 2022-04-27 06:01:00 Doctor Unassigned, Suhail [facility] [place] AGREEMENTS AND [place] [facility] AUTHORIZATIONS BLOOD CULTURE SCREEN 2022-04-15 09:40:00 Scott Mccrary [facility] TRANSTHORACIC ECHO (TTE) 2022-04-14 19:22:00 Rashid White [facility] CBC WITH DIFF 2022-04-14 11:32:00 Scott Mccrary [facility] BASIC METABOLIC PANEL (NA, 2022-04-14 11:32:00 Carlos Mccrary [facility] K, CL, CO2, GLUCOSE, BUN, Medica l Branch CREATININE, [place]) BASIC METABOLIC PANEL (NA, 2022-04-14 11:32:00 Carlos Mccrary [facility] K, CL, CO2, GLUCOSE, BUN, Medica l Branch CREATININE, CA) CBC WITH DIFF 2022-04-14 11:32:00 Scott Mccrary [facility] US LOWER EXTREMITY VEIN 2022-04-14 03:28:00 Scott Mccrary [facility] WITH COMPRESSION BILATERAL Medic al Branch (ONLY FOR RULE OUT DVT) LOWER EXTREMITY VEIN 2022-04-14 03:28:00 Scott Mccrary [facility] WITH COMPRESSION BILATERAL Medic al Branch (ONLY FOR RULE OUT DVT) US RETROPERITONEAL 2022-04-14 02:39:00 Scott Mccrary [facility] US RETROPERITONEAL 2022-04-14 02:39:00 Scott Mccrary [facility] BASIC METABOLIC PANEL (NA, 2022-04-13 23:54:00 Ervin Ball [facility] K, CL, CO2, GLUCOSE, BUN, Medica l Branch CREATININE, CA) BASIC METABOLIC PANEL (NA, 2022-04-13 23:54:00 Ervin Ball [facility] K, CL, CO2, GLUCOSE, BUN, Medica l Branch CREATININE, CA) HB ECG ROUTINE & RHYTHM 2022-04-13 23:41:05 Rashid White [facility] XR CHEST 1 VW 2022-04-13 23:11:00 Vu, Rashid [facility] XR CHEST 1 VW 2022-04-13 23:11:00 Christopher Rashid [facility] AC PANEL 20 + LACTIC ACID 2022-04-13 22:49:00 Rashid White Un [facility] AC PANEL 20 + LACTIC ACID 2022-04-13 22:49:00 Christopher Rashid Un [facility] AC PANEL 20 + LACTIC ACID 2022-04-13 22:49:00 Rashid White Un [facility] CBC WITHOUT DIFF 2022-04-13 22:31:00 Kaandriaussveronica [facility] CBC WITHOUT DIFF 2022-04-13 22:31:00 Kavoussveronica [facility] CBC WITHOUT DIFF 2022-04-13 22:31:00 Kavoussveronica [facility] CBC WITHOUT DIFF 2022-04-13 18:54:00 Kavoussveronica [facility] CBC WITHOUT DIFF 2022-04-13 18:54:00 Kavoussi, [facility] CBC WITHOUT DIFF 2022-04-13 18:54:00 Kavoussveronica [facility] BASIC METABOLIC PANEL (NA, 2022-04-13 18:53:00 [facility], CO2, GLUCOSE, BUN, Medica l Branch CREATININE, CA) BASIC METABOLIC PANEL (NA, 2022-04-13 18:53:00 Kaandriaussveronica Nyann-marie [facility] K, CL, CO2, GLUCOSE, BUN, Medica l Branch CREATININE, CA) BASIC METABOLIC PANEL (NA, 2022-04-13 18:53:00 Kavoussveronica [facility] K, CL, CO2, GLUCOSE, BUN, Medica l Branch CREATININE, CA) STONE ANALYSIS 2022-04-13 05:57:00 [facility] URINE CULTURE 2022-04-13 05:48:00 [facility] URINE CULTURE 2022-04-13 05:48:00 [facility] INTUBATION 2022-04-13 05:25:00 Renetta Chambers [facility] URETERAL CATHETER 2022-04-13 05:05:00 [facility] Branch URETEROSCOPY 2022-04-13 05:05:00 [facility] STENT PLACEMENT 2022-04-13 05:05:00 [facility] URETERAL CATHETER 2022-04-13 05:05:00 [facility] PLACEMENT [facility] Branch URETEROSCOPY 2022-04-13 05:05:00 [facility] STENT PLACEMENT 2022-04-13 05:05:00 [facility] URETERAL CATHETER 2022-04-13 05:05:00 [facility] URETEROSCOPY 2022-04-13 05:05:00 [facility] STENT PLACEMENT 2022-04-13 05:05:00 [facility] IR PLACEMENT NEPHRO 2022-04-12 19:12:00 Rashid White [facility] CATHETER PERCUTANEOUS Medical Br anch INCLUDES DIAGNOSTIC NEPHROGRAM IR PLACEMENT NEPHRO 2022-04-12 19:12:00 Rashid White [facility] CATHETER PERCUTANEOUS Medical Br anch INCLUDES DIAGNOSTIC NEPHROGRAM US RETROPERITONEAL 2022-04-12 15:53:30 Rashid White [facility] US RETROPERITONEAL 2022-04-12 15:53:30 Rashid White [facility] COMPLETE [facility] Branch US RETROPERITONEAL 2022-04-12 15:53:30 Rashid White [facility] Branch BLOOD CULTURE SCREEN 2022-04-12 14:31:00 Rashid [facility] BLOOD CULTURE WORKUP 2022-04-12 14:31:00 Rashid White [facility] GRAM NEGATIVE BLOOD 2022-04-12 14:31:00 Rashid White [facility] Branch PROBE-AEROBIC BLOOD CULTURE SCREEN 2022-04-12 14:31:00 Vu, Rashid [facility] BLOOD CULTURE WORKUP 2022-04-12 14:31:00 Vu, Rashid Escobar ity of [facility] GRAM NEGATIVE BLOOD 2022-04-12 14:31:00 Vu Rashid Escobari ty of [place] [facility] Medical Branch PROBE-AEROBIC BLOOD CULTURE SCREEN 2022-04-12 14:31:00 Vu, Rashid Escobar ity of [facility] BLOOD CULTURE WORKUP 2022-04-12 14:31:00 Vu, Rashid Escobar ity of [facility] GRAM NEGATIVE BLOOD 2022-04-12 14:31:00 Vu Rashid Escobari ty of [place] [facility] Medical Branch PROBE-AEROBIC BLOOD CULTURE SCREEN 2022-04-12 14:30:00 Vu Rashid Luz ity of [facility] PROTHROMBIN TIME / INR 2022-04-12 14:30:00 VuRashid Laith rsity of [facility] BLOOD CULTURE WORKUP 2022-04-12 14:30:00 Vu Rashid Luz ity of [facility] PROTHROMBIN TIME / INR 2022-04-12 14:30:00 VuRashid Abrahame rsity of [facility] BLOOD CULTURE SCREEN 2022-04-12 14:30:00 Vu Rashid Escobar ity of [facility] BLOOD CULTURE WORKUP 2022-04-12 14:30:00 Vu Rashid Escobar ity of [facility] BLOOD CULTURE SCREEN 2022-04-12 14:30:00 Vu Rashid Escobar ity [facility] PROTHROMBIN TIME / INR 2022-04-12 14:30:00 VuRashid Abrahame rsity of [facility] BLOOD CULTURE WORKUP 2022-04-12 14:30:00 Vu Rashid Escobar ity of [facility] US FIRST 2022-04-12 14:15:36 Vu Rashid [facility] [place] TRIMESTER LESS THAN 14 Medical B ranch WEEKS US FIRST 2022-04-12 14:15:36 Vu, Rashid [facility] [place] TRIMESTER LESS THAN 14 Medical B ranch WEEKS US FIRST 2022-04-12 14:15:36 Vu, Rashid [facility] [place] TRIMESTER LESS THAN 14 Medical B ranch WEEKS US RETROPERITONEAL 2022-04-12 14:15:16 Vu, Rashid Universit y of [facility] Branch US RETROPERITONEAL 2022-04-12 14:15:16 [facility] 2022-04-12 14:15:16 Vu, [facility] US ABDOMEN LIMITED 2022-04-12 14:14:53 Vu, [facility] US ABDOMEN LIMITED 2022-04-12 14:14:53 Vu, [facility] US ABDOMEN LIMITED 2022-04-12 14:14:53 Vu, [facility] URINE CULTURE 2022-04-12 13:58:00 Vu, [facility] URINE CULTURE 2022-04-12 13:58:00 Vu, [facility] URINE CULTURE 2022-04-12 13:58:00 Vu, [facility] URINALYSIS 2022-04-12 13:57:00 Vu, [facility] URINALYSIS 2022-04-12 13:57:00 Vu, [facility] URINALYSIS 2022-04-12 13:57:00 Vu, [facility] BASIC METABOLIC PANEL (NA, 2022-04-12 13:15:00 Vu, Rashid [facility] [place] K, CL, CO2, GLUCOSE, BUN, Medica l Branch CREATININE, CA) BASIC METABOLIC PANEL (NA, 2022-04-12 13:15:00 Vu, Rashid [facility] [place] K, CL, CO2, GLUCOSE, BUN, Medica l Branch CREATININE, CA) BASIC METABOLIC PANEL (NA, 2022-04-12 13:15:00 Vu, Rashid [facility] [place] K, CL, CO2, GLUCOSE, BUN, Medica l Branch CREATININE, CA) CBC WITH DIFF 2022-04-12 13:14:00 Vu, [facility] CBC WITH DIFF 2022-04-12 13:14:00 Vu, [facility] CBC WITH DIFF 2022-04-12 13:14:00 Vu, [facility] US FIRST 2022-04-12 11:39:02 Vu, [facility] TRIMESTER LESS THAN 14 Medical B [place] WEEKS WITH TRANSVAGINAL US FIRST 2022-04-12 11:39:02 [facility] Medical B ranch WEEKS WITH TRANSVAGINAL US FIRST 2022-04-12 11:39:02 Christopher [facility] TRIMESTER LESS THAN 14 Medical B ranch WEEKS WITH TRANSVAGINAL CONSENT/REFUSAL FOR 2021-07-19 21:57:44 Doctor Unassigned, [facility] OF PRIVACY 2021-07-19 21:57:10 Doctor Unassigned, [facility] XR HIPS 3 VW LEFT 2021-03-05 23:55:43 Singer [facility] XR KNEE <3 VW LEFT 2021-03-05 23:55:43 Singer Stephon [facility] CONSENT/REFUSAL FOR 2021-03-05 22:55:59 Doctor Marisela, [facility] NOTICE OF PRIVACY 2021-03-05 22:55:49 Doctor Marisela, [facility] PRACTICES [place] [facility] PAP SMEAR-LIQUID BASED-CP 2020-08-26 20:39:00 José Miguel Donis [facility] CBC WITH DIFF 2020-08-26 20:20:00 José Miguel Donis [facility] RUBELLA SCREEN IGG 2020-08-26 20:20:00 José Miguel Donis [facility] VZV ANTIBODY SCREEN 2020-08-26 20:20:00 José Miguel Donis [facility] HEPATITIS B SURFACE 2020-08-26 20:20:00 José Miguel Donis [facility] ANTIGEN [facility] HB ABO GROUPING 2020-08-26 20:20:00 José Miguel Donis [facility] HIV 1/2 AG-AB WITH REFLEX 2020-08-26 20:20:00 José Miguel Donis [facility] GALV ONLY - SYPHILIS 2020-08-26 20:20:00 José Miguel Donis [facility] IGG/IGM Medical Branch THYROID STIMULATING 2020-08-26 20:20:00 José Miguel Donis [facility] [place] [facility] POCT TEST 2020-08-26 18:55:00 José Miguel Donis Uni versity of [facility] POCT URINALYSIS W/O 2020-08-26 18:55:00 José Miguel [facility]is [facility] SPECIFIC GRAVITY [facility] ASSIGNMENT OF BENEFITS 2020-08-26 18:27:42 Doctor Unassigned, Un iversity [place] [facility] Encounters Start End Encounter Admission Attending Care Care Encounter Source Date/Time Date/Time Type Type Clinicians Facility Department ID 2022-05-03 2022-05-03 Outpatient R NEREYDA [facility] [id number] Univers 13:00:00 13:00:00 GISELLE singh o f [facility] 2022-04-27 2022-04-27 Orders Doctor TUCKER 1.2.840.114 [id number] Univers 00:00:00 00:00:00 Only Unassigned, ART 350.1.13.10 ity of [place] [facility] 4.2.7.2.686 Beni as [phone] [facility] [address] 2022-04-19 2022-04-19 Transition YAYO Serrano 1.2.840.114 [id number] Univers 00:00:00 00:00:00 of Care Constance Del CRISTOBAL 350.1.13.10 i [place] [id number] [facility] 403 Branch 2022-04-12 2022-04-17 Inpatient X [facility] SUU [id number] Univers 00:53:00 10:15:00 BILAL ity of [facility] 2022-04-12 2022-04-17 Hospital Aniket KERRI 1.2.840.114 [id number] Univers 00:53:00 10:15:00 Encounter Bilal ART 350.1.13.10 ity of HOSPITAL 4.2.7.2.686 Beni as [id number] [facility] 0[address] 2022-04-12 2022-04-13 Surgery Alzweri, 1.2.840.0 [id number] Univers 23:00:00 00:07:00 Zain 54172.1.1 ity of 3.104.2.7 [place] .3.514658 Medica l .8 Branch 2022-04-12 2022-04-13 Anesthesia Trish, 1.2.840.5 [id number] Univers 23:19:00 00:00:00 Event Renetta M 01089.1.1 ity of 3.104.2.7 [place] .3.467529 Medica l .8 Branch 2022-04-12 2022-04-12 Anesthesia [place], 1.2.840.3 [id number] Univers 17:18:25 17:18:25 Event Leanne 66363.1.1 [place] .3.197640 Medica [place] .8 [place] 2022-04-12 2022-04-12 Travel 1.2.840.1 1.2.402.409 [id number] Univers 00:00:00 00:00:00 20948.1.1 350.1.13.10 ity of 3.104.2.7 [place].3.698 [place] .3.593133 084.8 Medica l .8 [place] 2021-11-09 2021-11-09 Outpatient Baum_L [facility] [id number] [place] 09:16:00 09:16:00 [id number] [facility] 2021-10-27 2021-10-30 Inpatient ER CATALINA NATARAJAN [facility] Internal [id number] SLS 20:22:00 11:35:00 Med 2021-07-19 2021-07-19 Emergency X TATIANA MONTGOMERY ERT [id number] Univers 17:08:00 18:08:00 MEKA singh of [facility] 2021-07-19 2021-07-19 Emergency TATIANA [place] 1.2.840.114 [id number] Univers 17:08:00 18:08:00 Meka SALAZAR 350.1.13.10 it[facility] 4.2.7.2.686 [facility] [id number] [facility] 0[address] Branch 2021-03-05 2021-03-05 Emergency X , [facility] ERT [id number] Univers 18:12:00 19:33:00 STEPHON singh of [facility] 2021-03-05 2021-03-05 Emergency Singer [facility] 1.2.416.814 [id number] Univers 18:12:00 19:33:00 Stephon FELCH 350.1.13.10 i ty of [place] 4.2.7.2.686 [facility] [id number] [facility] 084 [place] 2021-03-05 2021-03-05 Orders Doctor TUCKER 1.2.840.114 [id number] Univers 00:00:00 00:00:00 Only Unassigned, ART 350.1.13.10 ity of [place] [facility] 4.2.7.2.686 Beni as [id number] [facility] [address] [place] 2020-10-13 2020-10-13 Telemedici Faculty, [facility] 1.2.840.114 [id number] Univers 15:30:00 15:45:00 ne Visit Tierney Sheehan GEOTECHNICAL OPERATING ENGINEER 350.1.13.10 ity [facility] 4.2.7.2.686 Beni as MATERNAL [phone] Med ical & CHILD [address] [place] [address] 2020-10-13 2020-10-13 Outpatient R [facility] [id number] Univers 15:30:00 15:30:00 ity [facility] 2020-10-13 2020-10-13 Telephone Faculty, [facility] 1.2.840.114 [id number] Univers 00:00:00 00:00:00 Zana Edgarrosi GEOTECHNICAL OPERATING ENGINEER 350.1.13.10 ity of [facility] 4.2.7.2.686 Beni as MATERNAL [id number] [facility] ical & CHILD [address] [place] [address] 2020-09-12 2020-09-12 Telephone Gagandeep, [facility] 1.2.840.114 [id number] Univers 00:00:00 00:00:00 José Miguel Jones GEOTECHNICAL OPERATING ENGINEER 350.1.13.10 ity of [facility] 4.2.7.2.686 Beni as MATERNAL [id number] [facility] & CHILD [address] [place] [address] 2020-09-08 2020-09-08 Outpatient R [facility] [id number] Univers 14:00:00 14:00:00 ity [facility] 2020-09-04 2020-09-04 [facility] [id number] Univers 15:30:00 15:30:00 JOSÉ MIGUEL pulido [facility] 2020-09-02 2020-09-02 Outpatient R [facility] [id number] Univers 13:15:00 13:15:00 ity [facility] 2020-08-26 2020-08-26 Initial [email or web address] 1.2.031.764 [id number] Univers 13:47:18 15:36:00 José Miguel Jones GEOTECHNICAL OPERATING ENGINEER 350.1.13.10 ity of Visit [facility] 4.2.7.2.686 Beni [address] MATERNAL [id number] [facility] [address] [place] [address] 2020-08-26 2020-08-26 [facility] [id number] Univers 13:00:00 13:00:00 JOSÉ MIGUEL pulido [facility] 2020-08-26 2020-08-26 Orders Doctor TUCKER 1.2.840.114 [id number] Univers 00:00:00 00:00:00 Only Unassigned, ART 350.1.13.10 ity of [place] [facility] 4.2.7.2.686 Beni as [id number] [address] 2020-08-22 2020-08-22 Outpatient [facility] [id number] Univers 08:00:00 08:00:00 JOSÉ MIGUEL pulido [facility] Results Test Description Test Time Test Comments Results Result Comments Source STONE ANALYSIS 2022-04-16 02:11:15 Test Item Value Reference Range Interpretation Comme nts Calculi Mass (test code = 3154-2) 53 mg Calculi Description (test code = See Note Specimen consists of one byrnes 14516-9) calculus.The to mariangel weight is 53 mg. Calculi Composition (test code = See Note Calculi composed primarily of:70% 9795-6) calcium oxalate monohydrate,10% calcium oxalate dihydrate, and20% calcium phospha te (hydroxy- and carbonate- apat ite).INTERPRETIVE INFORMATION: Ca lculi (Stone) analysis Calculi are the products of physiological p rocesses that yield crystalline com pounds in a matrix of biological comp ounds and blood. ?Matrix compone nts are not reported. ?The clinically significant crystalline com ponents identified in calculi specime ns are reported. ?Gross descript ion may not be consistent with composition determined by F TIR analysis.Performed By: RENETTA sepulveda[address] [place] [address] [id number] Director: Chris Casillas MD, PhD [facility]2022-04-14 20:15:15 Test Item Value Reference Range Interpretation Comments Height (test code = in 0559687922) Weight (test code = lbs 4467680510) Systolic BP (test code mmHg = 7515940306) Diastolic BP (test code mmHg = 0285434128) Heart Rate (test code = bpm 9109983784) LVOT stroke volume 67.20 cm3 (test code = 2494527126) EF(Teich) (test code = 28.00 % 8081416051) LVIDD (test code = 5.10 cm 9499041979) LVIDS (test code = 4.50 cm 4247753172) Left Ventricular End 90.4 mL Systolic Volume by Teichholz Method (test code = 8863766) Left Ventricular End 125.6 mL Diastolic Volume by Teichholz Method (test code = 5296030) IVS (test code = 0.93 cm 2833817168) LVPWD (test code = 0.84 cm 6302080154) LVOT diameter (test 2.08 cm code = 4651171694) LVOT area (test code = 3.40 cm2 4472587039) FS (test code = 13 % 0153410261) MV Peak E Flor (test 110.5 cm/s code = 1966902218) MV Peak A Flor (test 61.7 cm/s code = 8962719335) E/A ratio (test code = ratio 9304632683) E wave decelartion time 0.16 s (test code = 6991776680) LA Volume Index (BP) 31.8 mL/m2 (test code = 6445852848) LA volume (BP) (test 57.8 mL code = 1933444635) LVOT peak flor (test 98.0 cm/s code = 9248563112) LVOT mn grad (test code mmHg = 7567332461) BSA (test code = 1.82 m2 5596540302) LA size (test code = 3.6 cm 0485076901) LAV(MOD-sp2) (test code 56.60 mL = 3024250510) LAV(MOD-sp4) (test code 48.30 mL = 8762641546) TASV (test code = 12.8 cm/s 9688288053) Tapse (test code = 2.8 cm 2990487410) AV LVOT peak gradient mmHg (test code = 2952827698) LVOT peak VTI (test 19.8 cm code = 9827984066) LV V1 mean (test code = 65.90 cm/s 7295420797) TR Peak Flor (test code 243.0 cm/s = 7509428721) Triscuspid Valve mmHg Regurgitation Peak Gradient (test code = 7769204035) Ao root diam (test code 2.90 cm = 8873275951) Aortic root (test code 2.9 cm = 7926896679) Ao root annulus (test 2.9 cm code = 9689574868) PW (test code = 0.84 cm 0.6-1.1 2747818157) EF - 2D (test code = 28.00 % 96498944) Interventricular Septum 0.93 cm Diastolic Thickness by 2D (test code = 6114949) MV E/e' septal (test 9.5 cm/s code = 9233361206) Radiology Study observation (narrative) (test code = 66707-7) POPPY (test code = POPPY) ?Left?Ventricle: Left ventricle size is normal. Normal wall thickness. Normal wall motion. Normal systolic function with a visually estimated EF of 50 - 55%. Normal diastolic function. ?Right?Ventricle: Right ventricle size is normal. Normal systolic function. Echocardiographic features suggestive of moderator band. ?Left?Atrium: Left atrium size is normal. Left atrium volume index is 31.8 mL/m2. ?Tricuspid?Valve: Tricuspid valve structure is normal. Mild transvalvular regurgitation. Right ventricular systolic pressure is 25-30 mmHg. ?RA pressure is 0-5 mmHg. ?Pericardium: The pericardium is normal. No pericardial effusion. Left VentricleLeft ventricle size is normal. Normal wall thickness. Normal wall motion. Normal systolic function with a visually estimated EF of 50 - 55%. Normal diastolic function.Right VentricleRight ventricle size is normal. Normal systolic function. Echocardiographic features suggestive of moderator band.Left AtriumLeft atrium size is normal. Left atrium volume index is 31.8 mL/m2.Right AtriumRight atrium size is normal.IVC/SVCIVC diameter is less than or equal to 21 mm and decreases greater than 50% during inspiration; therefore the estimated right atrial pressure is normal (~0-5 mmHg).Mitral ValveMitral valve structure is normal.Tricuspid ValveTricuspid valve structure is normal. Mild transvalvular regurgitation. Right ventricular systolic pressure is 25-30 mmHg. RA pressure is 0-5 mmHg.Aortic ValveTricuspid. No transvalvular regurgitation. No evidence of aortic stenosis.Pulmonic ValveNot well visualized. Pulmonic valve is normal in structure and function.Ascending AortaNormal sized annulus and sinus of Valsalva.PericardiumThe pericardium is normal. No pericardial effusion.Study DetailsStudy quality was adequate. A complete echocardiogram was performed using 2D, color flow Doppler and spectral Doppler. [facility] CULTURE [id number] 15:08:54 Test Item Value Reference Range Interpretation Comments Blood Culture-Aerobic Culture positive. No growth AA P revious (test code = 50496-5) See Blood Culture p reliminary Workup for verified result additional was Culture In information. 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 No growth AA P revious (test code = 44132-2) See Blood Culture p reliminary Workup for verified result additional was Culture In information. 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 Lab Interpretation Abnormal (test code = 68304-6) [facility] CULTURE [id number] 15:08:54 Test Item Value Reference Range Interpretation Comments Blood Culture Escherichia coli Organism i dentified Workup (test by DNA probeFor code = 600-7) susceptibility results, refer to culture # - [id number] Gram stain Isolated from (test code = aerobic bottle 664-3) Gram negative bacilli [facility] CULTURE [id number] 15:08:54 Test Item Value Reference Range Interpretation Comments Blood Culture-Aerobic No organisms No growth Previo us (test code = 50169-0) isolated prelim inary verified result was Culture In Progress on 04/13/2022 at 0136 [employer]ACLE [employer]BI[employer] DEVELOPER Blood Culture positive. No growth AA Previous Culture-Anaerobic See Blood Culture preli minary (test code = 72345-2) Workup for verifi ed result additional was Culture In information. 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 No growth AA P revious (test code = 41107-2) See Blood Culture p reliminary Workup for verified result additional was Culture In information. 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 DEVELOPER Lab Interpretation Abnormal (test code = 09646-9) [facility] [id number] 15:08:54 Test Item Value Reference Range Interpretation Comments Blood Culture Escherichia coli Organism i dentified Workup (test by DNA probeFor code = 600-7) susceptibility results, refer to culture # - [id number] Gram stain Isolated from (test code = aerobic bottle 664-3) Gram negative bacilli [facility] WITH [id number] 12:27:05 Test Item Value Reference Range Interpretation Comments WBC (test code = See_Comment H [Automated 6690-2) message] The sy stem which generated this result transmitted reference range : 4.30 - 11.10 10*3/?L. The reference range was not used to interpret this result as normal/abnormal . RBC (test code = See_Comment L [Automated 789-8) message] The sy stem which generated this result transmitted reference range : 3.93 - 5.25 10*6/?L. The reference range was not used to interpret this result as normal/abnormal . HGB (test code = 10.6 g/dL 11.6-15.0 L 718-7) HCT (test code = 30.3 % 35.7-45.2 L 4544-3) MCV (test code = 90.4 fL 80.6-95.5 787-2) MCH (test code = 31.6 pg 25.9-32.8 785-6) MCHC (test code = 35.0 g/dL 31.6-35.1 786-4) RDW-SD (test code = 39.2 fL 39.0-49.9 96483-0) RDW-CV (test code = 11.9 % 12.0-15.5 L 788-0) PLT (test code = See_Comment L [Automated 777-3) message] The sy stem which generated this result transmitted reference range : 166 - 358 10*3/ ?L. The reference r kg was not used to interpret this result as normal/abnormal . MPV (test code = 9.9 fL 9.5-12.9 12851-7) IPF % (test code = 4.2 % 1.3-7.7 Platelet count 4342615990) measured by fluorescence method. NRBC/100 WBC (test See_Comment [Automat ed code = 2983155025) message] The system which generated this result transmitted reference range : 0.0 - 10.0 /100 WBCs. The refer ence range was not u sed to interpret th is result as normal/abnormal . NRBC x10^3 (test code See_Comment [Auto mated = 7267738217) message] The s ystem which generated this result transmitted reference range : 10*3/?L. The reference range was not used to interpret this result as normal/abnormal . GRAN MAT (NEUT) % 77.4 % (test code = 770-8) IMM GRAN % (test code 0.50 % = 7165351752) LYMPH % (test code = 13.3 % 736-9) MONO % (test code = 8.4 % 5905-5) EOS % (test code = 0.2 % 713-8) BASO % (test code = 0.2 % 706-2) GRAN MAT x10^3(ANC) 8.61 10*3/uL 1.88-7.09 H (test code = 2784821085) IMM GRAN x10^3 (test 0.06 10*3/uL 0.00-0.06 code = 0052313171) LYMPH x10^3 (test code 1.48 10*3/uL 1.32-3.29 = 731-0) MONO x10^3 (test code 0.94 10*3/uL 0.33-0.92 H = 742-7) EOS x10^3 (test code = 0.03-0.39 L 711-2) BASO x10^3 (test code 0.01-0.07 = 704-7) Lab Interpretation Abnormal (test code = 88466-1) [facility] WITH [id number] 12:27:05 Test Item Value Reference Range Interpretation Comments WBC (test code = See_Comment H [Automated 6690-2) message] The sy stem which generated this result transmitted reference range : 4.30 - 11.10 10*3/?L. The reference range was not used to interpret this result as normal/abnormal . RBC (test code = See_Comment L [Automated 959-8) message] The sy stem which generated this result transmitted reference range : 3.93 - 5.25 10*6/?L. The reference range was not used to interpret this result as normal/abnormal . HGB (test code = 10.6 g/dL 11.6-15.0 L 718-7) HCT (test code = 30.3 % 35.7-45.2 L 4544-3) MCV (test code = 90.4 fL 80.6-95.5 787-2) MCH (test code = 31.6 pg 25.9-32.8 785-6) MCHC (test code = 35.0 g/dL 31.6-35.1 786-4) RDW-SD (test code = 39.2 fL 39.0-49.9 85402-5) RDW-CV (test code = 11.9 % 12.0-15.5 L 788-0) PLT (test code = See_Comment L [Automated 777-3) message] The sy stem which generated this result transmitted reference range : 166 - 358 10*3/ ?L. The reference r kg was not used to interpret this result as normal/abnormal . MPV (test code = 9.9 fL 9.5-12.9 06093-9) IPF % (test code = 4.2 % 1.3-7.7 Platelet count 8203822037) measured by fluorescence method. NRBC/100 WBC (test See_Comment [Automat ed code = 9643220017) message] The system which generated this result transmitted reference range : 0.0 - 10.0 /100 WBCs. The refer ence range was not u sed to interpret th is result as normal/abnormal . NRBC x10^3 (test code See_Comment [Auto mated = 2591660283) message] The s ystem which generated this result transmitted reference range : 10*3/?L. The reference range was not used to interpret this result as normal/abnormal . GRAN MAT (NEUT) % 77.4 % (test code = 770-8) IMM GRAN % (test code 0.50 % = 9939455503) LYMPH % (test code = 13.3 % 736-9) MONO % (test code = 8.4 % 5905-5) EOS % (test code = 0.2 % 713-8) BASO % (test code = 0.2 % 706-2) GRAN MAT x10^3(ANC) 8.61 10*3/uL 1.88-7.09 H (test code = 3561604804) IMM GRAN x10^3 (test 0.06 10*3/uL 0.00-0.06 code = 8926134846) LYMPH x10^3 (test code 1.48 10*3/uL 1.32-3.29 = 731-0) MONO x10^3 (test code 0.94 10*3/uL 0.33-0.92 H = 742-7) EOS x10^3 (test code = 0.03-0.39 L 711-2) BASO x10^3 (test code 0.01-0.07 = 704-7) Lab Interpretation Abnormal (test code = 01717-2) [facility] WITH [id number] 12:27:05 Test Item Value Reference Range Interpretation Comments WBC (test code = See_Comment H [Automated 6690-2) message] The sy stem which generated this result transmitted reference range : 4.30 - 11.10 10*3/?L. The reference range was not used to interpret this result as normal/abnormal . RBC (test code = See_Comment L [Automated 789-8) message] The sy stem which generated this result transmitted reference range : 3.93 - 5.25 10*6/?L. The reference range was not used to interpret this result as normal/abnormal . HGB (test code = 10.6 g/dL 11.6-15.0 L 718-7) HCT (test code = 30.3 % 35.7-45.2 L 4544-3) MCV (test code = 90.4 fL 80.6-95.5 787-2) MCH (test code = 31.6 pg 25.9-32.8 785-6) MCHC (test code = 35.0 g/dL 31.6-35.1 786-4) RDW-SD (test code = 39.2 fL 39.0-49.9 65235-2) RDW-CV (test code = 11.9 % 12.0-15.5 L 788-0) PLT (test code = See_Comment L [Automated 777-3) message] The sy stem which generated this result transmitted reference range : 166 - 358 10*3/ ?L. The reference r kg was not used to interpret this result as normal/abnormal . MPV (test code = 9.9 fL 9.5-12.9 30033-3) IPF % (test code = 4.2 % 1.3-7.7 Platelet count 0935469313) measured by fluorescence method. NRBC/100 WBC (test See_Comment [Automat ed code = 2749383140) message] The system which generated this result transmitted reference range : 0.0 - 10.0 /100 WBCs. The refer ence range was not u sed to interpret th is result as normal/abnormal . NRBC x10^3 (test code See_Comment [Auto mated = 9401796007) message] The s ystem which generated this result transmitted reference range : 10*3/?L. The reference range was not used to interpret this result as normal/abnormal . GRAN MAT (NEUT) % 77.4 % (test code = 770-8) IMM GRAN % (test code 0.50 % = 7217612751) LYMPH % (test code = 13.3 % 736-9) MONO % (test code = 8.4 % 5905-5) EOS % (test code = 0.2 % 713-8) BASO % (test code = 0.2 % 706-2) GRAN MAT x10^3(ANC) 8.61 10*3/uL 1.88-7.09 H (test code = 4113406642) IMM GRAN x10^3 (test 0.06 10*3/uL 0.00-0.06 code = 2841562043) LYMPH x10^3 (test code 1.48 10*3/uL 1.32-3.29 = 731-0) MONO x10^3 (test code 0.94 10*3/uL 0.33-0.92 H = 742-7) EOS x10^3 (test code = 0.03-0.39 L 711-2) BASO x10^3 (test code 0.01-0.07 = 704-7) Lab Interpretation Abnormal (test code = 06067-1) [facility] METABOLIC PANEL (NA, K, CL, CO2, GLUCOSE, BUN, CREATININE, CA)2022-04-14 12:20:16 Test Item Value Reference Range Interpretation Comments NA (test code = 134 mmol/L 135-145 L 6196874026) K (test code = 3.4 mmol/L 3.5-5.0 L 2211568715) CL (test code = 108 mmol/L 98-108 4536516676) CO2 TOTAL (test code = 20 mmol/L 23-31 L 6708904455) AGAP (test code = 2-16 1594850486) BUN (test code = 3 mg/dL 7-23 L 4120093098) GLUCOSE (test code = 105 mg/dL 70-110 2095949413) CREATININE (test code = 0.46 mg/dL 0.50-1.04 L 0923892295) CALCIUM (test code = 8.0 mg/dL 8.6-10.6 L 4839445871) eGFR (test code = mL/min/1.73m2 7442089159) POPPY (test code = POPPY) Association of Glomerular Filtration Rate (GFR) and Staging of Kidney Disease* + --+ --+ ------+| GFR (mL/min/1.73 m2) ?| With Kidney Damage ?| ?Without Kidney Damage+ --------+ --------+ +| ?>90 ?| ?Stage one ?| ? Normal ?+ ---+ ---+ -------+| ?60-89 ?| ?Stage two ?| ? Decreased GFR ? + --+ --+ ------+| ?30-59 ?| ?Stage three ?| ? Stage three ? + --+ --+ ------+| ?15-29 ?| ?Stage four ? | ? Stage four ?+ ---+ ---+ -------+| ?<15 (or dialysis) ? ?| ?Stage five ? | ? Stage five ?+ ---+ ---+ -------+ *Each stage assumes the associated GFR level has been in effect for at least three months. ?Stages 1 to 5, with or without kidney disease, indicate chronic kidney disease. Notes: Determination of stages one and two (with eGFR >59mL/min/1.73 m2) requires estimation of kidney damage for at least three months as defined by structural or functional abnormalities of the kidney, manifested by either:Pathological abnormalities or Markers of kidney damage (including abnormalities in the composition of the blood or urine or abnormalities in imaging tests). Lab Interpretation Abnormal (test code = 20485-5) [facility] METABOLIC PANEL (NA, K, CL, CO2, GLUCOSE, BUN, CREATININE, CA)2022-04-14 12:20:16 Test Item Value Reference Range Interpretation Comments NA (test code = 134 mmol/L 135-145 L 0779284398) K (test code = 3.4 mmol/L 3.5-5.0 L 8206302139) CL (test code = 108 mmol/L 98-108 8760307729) CO2 TOTAL (test code = 20 mmol/L 23-31 L 9640399264) AGAP (test code = 2-16 8442651771) BUN (test code = 3 mg/dL 7-23 L 5913964828) GLUCOSE (test code = 105 mg/dL 70-110 9950723444) CREATININE (test code = 0.46 mg/dL 0.50-1.04 L 0254665680) CALCIUM (test code = 8.0 mg/dL 8.6-10.6 L 4476038756) eGFR (test code = mL/min/1.73m2 3268260727) POPPY (test code = POPPY) Association of Glomerular Filtration Rate (GFR) and Staging of Kidney Disease* + --+ --+ ------+| GFR (mL/min/1.73 m2) ?| With Kidney Damage ?| ?Without Kidney Damage+ --------+ --------+ +| ?>90 ?| ?Stage one ?| ? Normal ?+ ---+ ---+ -------+| ?60-89 ?| ?Stage two ?| ? Decreased GFR ? + --+ --+ ------+| ?30-59 ?| ?Stage three ?| ? Stage three ? + --+ --+ ------+| ?15-29 ?| ?Stage four ? | ? Stage four ?+ ---+ ---+ -------+| ?<15 (or dialysis) ? ?| ?Stage five ? | ? Stage five ?+ ---+ ---+ -------+ *Each stage assumes the associated GFR level has been in effect for at least three months. ?Stages 1 to 5, with or without kidney disease, indicate chronic kidney disease. Notes: Determination of stages one and two (with eGFR >59mL/min/1.73 m2) requires estimation of kidney damage for at least three months as defined by structural or functional abnormalities of the kidney, manifested by either:Pathological abnormalities or Markers of kidney damage (including abnormalities in the composition of the blood or urine or abnormalities in imaging tests). Lab Interpretation Abnormal (test code = 72005-3) [facility] METABOLIC PANEL (NA, K, CL, CO2, GLUCOSE, BUN, CREATININE, CA)2022-04-14 12:20:16 Test Item Value Reference Range Interpretation Comments NA (test code = 134 mmol/L 135-145 L 4131732301) K (test code = 3.4 mmol/L 3.5-5.0 L 0925686687) CL (test code = 108 mmol/L 98-108 9895684467) CO2 TOTAL (test code = 20 mmol/L 23-31 L 9566598106) AGAP (test code = 2-16 1219797021) BUN (test code = 3 mg/dL 7-23 L 6551950474) GLUCOSE (test code = 105 mg/dL 70-110 8131768544) CREATININE (test code = 0.46 mg/dL 0.50-1.04 L 0538989598) CALCIUM (test code = 8.0 mg/dL 8.6-10.6 L 9510782807) eGFR (test code = mL/min/1.73m2 6664605153) POPPY (test code = POPPY) Association of Glomerular Filtration Rate (GFR) and Staging of Kidney Disease* + --+ --+ ------+| GFR (mL/min/1.73 m2) ?| With Kidney Damage ?| ?Without Kidney Damage+ --------+ --------+ +| ?>90 ?| ?Stage one ?| ? Normal ?+ ---+ ---+ -------+| ?60-89 ?| ?Stage two ?| ? Decreased GFR ? + --+ --+ ------+| ?30-59 ?| ?Stage three ?| ? Stage three ? + --+ --+ ------+| ?15-29 ?| ?Stage four ? | ? Stage four ?+ ---+ ---+ -------+| ?<15 (or dialysis) ? ?| ?Stage five ? | ? Stage five ?+ ---+ ---+ -------+ *Each stage assumes the associated GFR level has been in effect for at least three months. ?Stages 1 to 5, with or without kidney disease, indicate chronic kidney disease. Notes: Determination of stages one and two (with eGFR >59mL/min/1.73 m2) requires estimation of kidney damage for at least three months as defined by structural or functional abnormalities of the kidney, manifested by either:Pathological abnormalities or Markers of kidney damage (including abnormalities in the composition of the blood or urine or abnormalities in imaging tests). Lab Interpretation Abnormal (test code = 01239-1) [facility] (NA, K, CL, CO2, GLUCOSE, BUN, CREATININE, CA)2022-04-14 00:39:12 Test Item Value Reference Range Interpretation Comments NA (test code = 135 mmol/L 135-145 9490586003) K (test code = 2.7 mmol/L 3.5-5.0 LL 3428849600) CL (test code = 109 mmol/L 98-108 H 0991007179) CO2 TOTAL (test code = 17 mmol/L 23-31 L 1606040148) AGAP (test code = 2-16 4730326958) BUN (test code = 3 mg/dL 7-23 L 6041069129) GLUCOSE (test code = 74 mg/dL 70-110 3599618945) CREATININE (test code = 0.47 mg/dL 0.50-1.04 L 2355224585) CALCIUM (test code = 6.4 mg/dL 8.6-10.6 L 0758906104) eGFR (test code = mL/min/1.73m2 1126514006) POPPY (test code = POPPY) Association of Glomerular Filtration Rate (GFR) and Staging of Kidney Disease* + --+ --+ ------+| GFR (mL/min/1.73 m2) ?| With Kidney Damage ?| ?Without Kidney Damage+ --------+ --------+ +| ?>90 ?| ?Stage one ?| ? Normal ?+ ---+ ---+ -------+| ?60-89 ?| ?Stage two ?| ? Decreased GFR ? + --+ --+ ------+| ?30-59 ?| ?Stage three ?| ? Stage three ? + --+ --+ ------+| ?15-29 ?| ?Stage four ? | ? Stage four ?+ ---+ ---+ -------+| ?<15 (or dialysis) ? ?| ?Stage five ? | ? Stage five ?+ ---+ ---+ -------+ *Each stage assumes the associated GFR level has been in effect for at least three months. ?Stages 1 to 5, with or without kidney disease, indicate chronic kidney disease. Notes: Determination of stages one and two (with eGFR >59mL/min/1.73 m2) requires estimation of kidney damage for at least three months as defined by structural or functional abnormalities of the kidney, manifested by either:Pathological abnormalities or Markers of kidney damage (including abnormalities in the composition of the blood or urine or abnormalities in imaging tests). Lab Interpretation Abnormal (test code = 31545-9) [facility] Lactic [id number] 23:00:14 Test Item Value Reference Range Interpretation Comments PH (test code = 2) 7.35-7.45 PCO2 (test code = See_Comment L [Automate d 0674253968) message] The sy stem which generated this result transmitted reference range : 35 - 45 mmHg. The reference range was not used to interpret this result as normal/abnormal . PO2 (test code = See_Comment H [Automated 4794248379) message] The sy stem which generated this result transmitted reference range : 80 - 100 mmHg. The reference range was not used to interpret this result as normal/abnormal . HCO3 (test code = See_Comment L [Automate d 8443796244) message] The sy stem which generated this result transmitted reference range : 22 - 26 mEq/L. The reference range was not used to interpret this result as normal/abnormal . BE (test code = See_Comment L [Automated 9209146012) message] The sy stem which generated this result transmitted reference range : -3.0 - 3.0 mEq/ L. The reference r kg was not used to interpret this result as normal/abnormal . THB (test code = 11.9 g/dL 12.0-16.0 L 6417648333) %O2HB (test code = 98.5 % 94.0-99.0 3924409928) %COHB ART (test code = 0.3 % 0.0-1.5 9030686024) %METHB ART (test code = 0.1 % 0.4-1.5 L 7992190874) VOL%O2 ART (test code = 16.8 % 15.0-23.0 1013812390) NA (test code = 130 mmol/L 135-145 L 6013544390) K+ (test code = 3.1 mmol/L 3.5-5.0 L 0668353304) AC CA IONZ (test code = 4.50 mg/dL 4.50-5.30 8770886036) GLUCOSE (test code = 88 mg/dL 70-110 5296391113) LACTIC ACID (test code 0.74 mmol/L 0.50-2.20 = 9148807792) Lab Interpretation Abnormal (test code = 75241-1) [facility] + Lactic [id number] 23:00:14 Test Item Value Reference Range Interpretation Comments PH (test code = 2) 7.35-7.45 PCO2 (test code = See_Comment L [Automate d 4756748523) message] The sy stem which generated this result transmitted reference range : 35 - 45 mmHg. The reference range was not used to interpret this result as normal/abnormal . PO2 (test code = See_Comment H [Automated 1887900787) message] The sy stem which generated this result transmitted reference range : 80 - 100 mmHg. The reference range was not used to interpret this result as normal/abnormal . HCO3 (test code = See_Comment L [Automate d 5592937281) message] The sy stem which generated this result transmitted reference range : 22 - 26 mEq/L. The reference range was not used to interpret this result as normal/abnormal . BE (test code = See_Comment L [Automated 7604543030) message] The sy stem which generated this result transmitted reference range : -3.0 - 3.0 mEq/ L. The reference r kg was not used to interpret this result as normal/abnormal . THB (test code = 11.9 g/dL 12.0-16.0 L 3360403646) %O2HB (test code = 98.5 % 94.0-99.0 6187525219) %COHB ART (test code = 0.3 % 0.0-1.5 9134183620) %METHB ART (test code = 0.1 % 0.4-1.5 L 8951859560) VOL%O2 ART (test code = 16.8 % 15.0-23.0 7931880554) NA (test code = 130 mmol/L 135-145 L 2433806086) K+ (test code = 3.1 mmol/L 3.5-5.0 L 4172248677) AC CA IONZ (test code = 4.50 mg/dL 4.50-5.30 2218912735) GLUCOSE (test code = 88 mg/dL 70-110 8991766370) LACTIC ACID (test code 0.74 mmol/L 0.50-2.20 = 2309932138) Lab Interpretation Abnormal (test code = 37764-9) [facility] + Lactic [id number] 23:00:14 Test Item Value Reference Range Interpretation Comments PH (test code = 2) 7.35-7.45 PCO2 (test code = See_Comment L [Automate d 5468269797) message] The sy stem which generated this result transmitted reference range : 35 - 45 mmHg. The reference range was not used to interpret this result as normal/abnormal . PO2 (test code = See_Comment H [Automated 1738256140) message] The sy stem which generated this result transmitted reference range : 80 - 100 mmHg. The reference range was not used to interpret this result as normal/abnormal . HCO3 (test code = See_Comment L [Automate d 9570193613) message] The sy stem which generated this result transmitted reference range : 22 - 26 mEq/L. The reference range was not used to interpret this result as normal/abnormal . BE (test code = See_Comment L [Automated 8510604531) message] The sy stem which generated this result transmitted reference range : -3.0 - 3.0 mEq/ L. The reference r kg was not used to interpret this result as normal/abnormal . THB (test code = 11.9 g/dL 12.0-16.0 L 0175698704) %O2HB (test code = 98.5 % 94.0-99.0 2722197665) %COHB ART (test code = 0.3 % 0.0-1.5 6245679002) %METHB ART (test code = 0.1 % 0.4-1.5 L 9646908182) VOL%O2 ART (test code = 16.8 % 15.0-23.0 4270327745) NA (test code = 130 mmol/L 135-145 L 3219833567) K+ (test code = 3.1 mmol/L 3.5-5.0 L 9181023717) AC CA IONZ (test code = 4.50 mg/dL 4.50-5.30 3966164895) GLUCOSE (test code = 88 mg/dL 70-110 9316115876) LACTIC ACID (test code 0.74 mmol/L 0.50-2.20 = 9659237720) Lab Interpretation Abnormal (test code = 89019-2) [facility] + Lactic [id number] 23:00:14 Test Item Value Reference Range Interpretation Comments PH (test code = 2) 7.35-7.45 PCO2 (test code = See_Comment L [Automate d 9807002842) message] The sy stem which generated this result transmitted reference range : 35 - 45 mmHg. The reference range was not used to interpret this result as normal/abnormal . PO2 (test code = See_Comment H [Automated 6378436904) message] The sy stem which generated this result transmitted reference range : 80 - 100 mmHg. The reference range was not used to interpret this result as normal/abnormal . HCO3 (test code = See_Comment L [Automate d 0665457349) message] The sy stem which generated this result transmitted reference range : 22 - 26 mEq/L. The reference range was not used to interpret this result as normal/abnormal . BE (test code = See_Comment L [Automated 4226831140) message] The sy stem which generated this result transmitted reference range : -3.0 - 3.0 mEq/ L. The reference r kg was not used to interpret this result as normal/abnormal . THB (test code = 11.9 g/dL 12.0-16.0 L 1522095568) %O2HB (test code = 98.5 % 94.0-99.0 2315221200) %COHB ART (test code = 0.3 % 0.0-1.5 8477108386) %METHB ART (test code = 0.1 % 0.4-1.5 L 3488127045) VOL%O2 ART (test code = 16.8 % 15.0-23.0 6238360297) NA (test code = 130 mmol/L 135-145 L 6810362966) K+ (test code = 3.1 mmol/L 3.5-5.0 L 6102581633) AC CA IONZ (test code = 4.50 mg/dL 4.50-5.30 8233877474) GLUCOSE (test code = 88 mg/dL 70-110 7852271962) LACTIC ACID (test code 0.74 mmol/L 0.50-2.20 = 3530812587) Lab Interpretation Abnormal (test code = 19339-7) [facility] WITHOUT [id number] 22:50:16 Test Item Value Reference Range Interpretation Comments WBC (test code = 6690-2) See_Comment H [A utomated message] The system [employer] generated this result transmit izzy reference range : 4.30 - 11.10 10*3/?L. The reference range was not used to interpret this result as normal/abnormal . RBC (test code = 789-8) See_Comment L [Au tomated message] The system [employer] generated this result transmit izzy reference range : 3.93 - 5.25 10* 6/?L. The reference r kg was not used to interpret this result as normal/abnormal . HGB (test code = 718-7) 11.2 g/dL 11.6-15.0 L HCT (test code = 4544-3) 31.7 % 35.7-45.2 L MCH (test code = 785-6) 31.7 pg 25.9-32.8 MCV (test code = 787-2) 89.8 fL 80.6-95.5 MCHC (test code = 786-4) 35.3 g/dL 31.6-35.1 H PLT (test code = 777-3) See_Comment L [Au tomated message] The system [employer] generated this result transmit izzy reference range : 166 - 358 10*3/?L. The reference range was not used to interpret this result as normal/abnormal . MPV (test code = 10.8 fL 9.5-12.9 25503-0) RDW-CV (test code = 12.0 % 12.0-15.5 788-0) RDW-SD (test code = 39.1 fL 39.0-49.9 76016-0) NRBC x10^3 (test code = See_Comment [Au tomated message] 7440432412) The system [employer] generated this result transmit izzy reference range : 10*3/?L. The reference range was not used to interpret this result as normal/abnormal . NRBC/100 WBC (test code See_Comment [Au tomated message] = 9607076955) [facility] generated this result transmit izzy reference range : 0.0 - 10.0 /100 WBC s. The reference r kg was not used to interpret this result as normal/abnormal . IPF % (test code = 3495889641) Lab Interpretation (test Abnormal code = 84315-3) [facility] WITHOUT [id number] 22:50:16 Test Item Value Reference Range Interpretation Comments WBC (test code = 6690-2) See_Comment H [A utomated message] The system [employer] generated this result transmit izzy reference range : 4.30 - 11.10 10*3/?L. The reference range was not used to interpret this result as normal/abnormal . RBC (test code = 789-8) See_Comment L [Au tomated message] The system [employer] generated this result transmit izzy reference range : 3.93 - 5.25 10* 6/?L. The reference r kg was not used to interpret this result as normal/abnormal . HGB (test code = 718-7) 11.2 g/dL 11.6-15.0 L HCT (test code = 4544-3) 31.7 % 35.7-45.2 L MCH (test code = 785-6) 31.7 pg 25.9-32.8 MCV (test code = 787-2) 89.8 fL 80.6-95.5 MCHC (test code = 786-4) 35.3 g/dL 31.6-35.1 H PLT (test code = 777-3) See_Comment L [Au tomated message] [facility] this result transmit izzy reference range : 166 - 358 10*3/?L. The reference range was not used to interpret this result as normal/abnormal . MPV (test code = 10.8 fL 9.5-12.9 97184-1) RDW-CV (test code = 12.0 % 12.0-15.5 788-0) RDW-SD (test code = 39.1 fL 39.0-49.9 33822-2) NRBC x10^3 (test code = See_Comment [Au tomated message] 0676165455) [facility] generated this result transmit izzy reference range : 10*3/?L. The reference range was not used to interpret this result as normal/abnormal . NRBC/100 WBC (test code See_Comment [Au tomated message] = 8858171883) The system [facility] generated this result transmit izzy reference range : 0.0 - 10.0 /100 WBC s. The reference r kg was not used to interpret this result as normal/abnormal . IPF % (test code = 9856913326) Lab Interpretation (test Abnormal code = 15627-7) [facility] WITHOUT [id number] 22:50:16 Test Item Value Reference Range Interpretation Comments WBC (test code = 6690-2) See_Comment H [A utomated message] The system [facility] generated this result transmit izzy reference range : 4.30 - 11.10 10*3/?L. The reference range was not used to interpret this result as normal/abnormal . RBC (test code = 789-8) See_Comment L [Au tomated message] The system [facility] generated this result transmit izzy reference range : 3.93 - 5.25 10* 6/?L. The reference r kg was not used to interpret this result as normal/abnormal . HGB (test code = 718-7) 11.2 g/dL 11.6-15.0 L HCT (test code = 4544-3) 31.7 % 35.7-45.2 L MCH (test code = 785-6) 31.7 pg 25.9-32.8 MCV (test code = 787-2) 89.8 fL 80.6-95.5 MCHC (test code = 786-4) 35.3 g/dL 31.6-35.1 H PLT (test code = 777-3) See_Comment L [Au tomated message] The system [facility] generated this result transmit izzy reference range : 166 - 358 10*3/?L. The reference range was not used to interpret this result as normal/abnormal . MPV (test code = 10.8 fL 9.5-12.9 93073-2) RDW-CV (test code = 12.0 % 12.0-15.5 788-0) RDW-SD (test code = 39.1 fL 39.0-49.9 97478-1) NRBC x10^3 (test code = See_Comment [Au tomated message] 9572245654) The system [facility] generated this result transmit izzy reference range : 10*3/?L. The reference range was not used to interpret this result as normal/abnormal . NRBC/100 WBC (test code See_Comment [Au tomated message] = 7181637092) The system [facility] generated this result transmit izzy reference range : 0.0 - 10.0 /100 WBC s. The reference r kg was not used to interpret this result as normal/abnormal . IPF % (test code = 4197908689) Lab Interpretation (test Abnormal code = 85163-3) [facility] WITHOUT [id number] 22:50:16 Test Item Value Reference Range Interpretation Comments WBC (test code = 6690-2) See_Comment H [A utomated message] The system [facility] generated this result transmit izzy reference range : 4.30 - 11.10 10*3/?L. The reference range was not used to interpret this result as normal/abnormal . RBC (test code = 789-8) See_Comment L [Au tomated message] The system [facility] generated this result transmit izzy reference range : 3.93 - 5.25 10* 6/?L. The reference r kg was not used to interpret this result as normal/abnormal . HGB (test code = 718-7) 11.2 g/dL 11.6-15.0 L HCT (test code = 4544-3) 31.7 % 35.7-45.2 L MCH (test code = 785-6) 31.7 pg 25.9-32.8 MCV (test code = 787-2) 89.8 fL 80.6-95.5 MCHC (test code = 786-4) 35.3 g/dL 31.6-35.1 H PLT (test code = 777-3) See_Comment L [Au tomated message] The system [employer] generated this result transmit izzy reference range : 166 - 358 10*3/?L. The reference range was not used to interpret this result as normal/abnormal . MPV (test code = 10.8 fL 9.5-12.9 07067-4) RDW-CV (test code = 12.0 % 12.0-15.5 788-0) RDW-SD (test code = 39.1 fL 39.0-49.9 70751-3) NRBC x10^3 (test code = See_Comment [Au tomated message] 9472855840) The system [employer] generated this result transmit izzy reference range : 10*3/?L. The reference range was not used to interpret this result as normal/abnormal . NRBC/100 WBC (test code See_Comment [Au tomated message] = 3001048935) The system [facility] generated this result transmit izzy reference range : 0.0 - 10.0 /100 WBC s. The reference r kg was not used to interpret this result as normal/abnormal . IPF % (test code = 5292388913) Lab Interpretation (test Abnormal code = 90854-4) [facility] WITHOUT [id number] 20:01:08 Test Item Value Reference Range Interpretation Comments WBC (test code = See_Comment [Automated message] 6690-2) The system [employer] generated this result transmitted ref erence range: 4.30 - 1 1.10 10*3/?L. The reference range was not used to int erpret this result as normal/abnormal . RBC (test code = 789-8) See_Comment L [Au tomated message] The system [employer] generated this result transmitted ref erence range: 3.93 - 5 .25 10*6/?L. The reference range was not used to int erpret this result as normal/abnormal . HGB (test code = 718-7) 8.4 g/dL 11.6-15.0 L HCT (test code = 24.8 % 35.7-45.2 L 4544-3) MCH (test code = 785-6) 31.6 pg 25.9-32.8 MCV (test code = 787-2) 93.2 fL 80.6-95.5 MCHC (test code = 33.9 g/dL 31.6-35.1 786-4) PLT (test code = 777-3) See_Comment L [Au tomated message] The [facility] generated this result transmitted ref erence range: 166 - 35 8 10*3/?L. The reference range was not used to int erpret this result as normal/abnormal . MPV (test code = 10.6 fL 9.5-12.9 80542-0) RDW-CV (test code = 12.0 % 12.0-15.5 788-0) RDW-SD (test code = 41.2 fL 39.0-49.9 67274-5) NRBC x10^3 (test code = See_Comment [Au tomated message] 9410834434) The system [employer] generated this result transmitted ref erence range: 10*3/?L. The reference range was not used to int erpret this result as normal/abnormal . NRBC/100 WBC (test code See_Comment [Au tomated message] = 8018202261) The system [facility] generated this result transmitted ref erence range: 0.0 - 10 .0 /100 WBCs. The reference range was not used to int erpret this result as normal/abnormal . IPF % (test code = 3.8 % 1.3-7.7 Platelet count 5699844996) measured by fluorescence me thod. Lab Interpretation Abnormal (test code = 18055-3) [facility] WITHOUT [id number] 20:01:08 Test Item Value Reference Range Interpretation Comments WBC (test code = See_Comment [Automated message] 6690-2) The system [employer] generated this result transmitted ref erence range: 4.30 - 1 1.10 10*3/?L. The reference range was not used to int erpret this result as normal/abnormal . RBC (test code = 789-8) See_Comment L [Au tomated message] The system [employer] generated this result transmitted ref erence range: 3.93 - 5 .25 10*6/?L. The reference range was not used to int erpret this result as normal/abnormal . HGB (test code = 718-7) 8.4 g/dL 11.6-15.0 L HCT (test code = 24.8 % 35.7-45.2 L 4544-3) MCH (test code = 785-6) 31.6 pg 25.9-32.8 MCV (test code = 787-2) 93.2 fL 80.6-95.5 MCHC (test code = 33.9 g/dL 31.6-35.1 786-4) PLT (test code = 777-3) See_Comment L [Au tomated message] The system [employer] generated this result transmitted ref erence range: 166 - 35 8 10*3/?L. The reference range was not used to int erpret this result as normal/abnormal . MPV (test code = 10.6 fL 9.5-12.9 97692-1) RDW-CV (test code = 12.0 % 12.0-15.5 788-0) RDW-SD (test code = 41.2 fL 39.0-49.9 51813-9) NRBC x10^3 (test code = See_Comment [Au tomated message] 8037586986) The system [employer] generated this result transmitted ref erence range: 10*3/?L. The reference range was not used to int erpret this result as normal/abnormal . NRBC/100 WBC (test code See_Comment [Au tomated message] = 6238270923) The system [facility] generated this result transmitted ref erence range: 0.0 - 10 .0 /100 WBCs. The reference range was not used to int erpret this result as normal/abnormal . IPF % (test code = 3.8 % 1.3-7.7 Platelet count 3614876082) measured by fluorescence me thod. Lab Interpretation Abnormal (test code = 49182-3) [facility] METABOLIC PANEL (NA, K, CL, CO2, GLUCOSE, BUN, CREATININE, CA)2022-04-13 19:54:59 Test Item Value Reference Range Interpretation Comments NA (test code = 138 mmol/L 135-145 1966297022) K (test code = 2.3 mmol/L 3.5-5.0 LL Slight 5021988582) hemolysis CL (test code = 119 mmol/L 98-108 H 5438408883) CO2 TOTAL (test code 15 mmol/L 23-31 L = 3602250488) AGAP (test code = 2-16 6861157215) BUN (test code = 3 mg/dL 7-23 L Slight 1345761628) hemolysis GLUCOSE (test code = 63 mg/dL 70-110 L 1708538744) CREATININE (test code 0.43 mg/dL 0.50-1.04 L = 2720709424) CALCIUM (test code = 4.9 mg/dL 8.6-10.6 LL 6881296623) eGFR (test code = mL/min/1.73m2 9516624226) POPPY (test code = POPPY) Association of Glomerular Filtration Rate (GFR) and Staging of Kidney Disease* + -----+ --------+ +| GFR (mL/min/1.73 m2) ?| With Kidney Damage ?| ?Without Kidney Damage+ +------- +---- --+| ?>90 ?| ?Stage one ?| ? Normal ?+ ------+ ---------+--------- +| ?60-89 ?| ?Stage two ?| ? Decreased GFR ? + -----+ --------+ +| ?30-59 ?| ?Stage three ?| ? Stage three ? + -----+ --------+ +| ?15-29 ?| ?Stage four ? | ? Stage four ?+ ------+ ---------+--------- +| ?<15 (or dialysis) ? ?| ?Stage five ? | ? Stage five ?+ ------+ ---------+--------- + *Each stage assumes the associated GFR level has been in effect for at least three months. ?Stages 1 to 5, with or without kidney disease, indicate chronic kidney disease. Notes: Determination of stages one and two (with eGFR >59mL/min/1.73 m2) requires estimation of kidney damage for at least three months as defined by structural or functional abnormalities of the kidney, manifested by either:Pathological abnormalities or Markers of kidney damage (including abnormalities in the composition of the blood or urine or abnormalities in imaging tests). Lab Interpretation Abnormal (test code = 91642-1) [facility] METABOLIC PANEL (NA, K, CL, CO2, GLUCOSE, BUN, CREATININE, CA)2022-04-13 19:54:59 Test Item Value Reference Range Interpretation Comments NA (test code = 138 mmol/L 135-145 [id number]) K (test code = 2.3 mmol/L 3.5-5.0 LL Slight 6061135226) hemolysis CL (test code = 119 mmol/L 98-108 H 1272788328) CO2 TOTAL (test code 15 mmol/L 23-31 L = 4327381189) AGAP (test code = 2-16 1072970278) BUN (test code = 3 mg/dL 7-23 L Slight 4134943213) hemolysis GLUCOSE (test code = 63 mg/dL 70-110 L 0897454793) CREATININE (test code 0.43 mg/dL 0.50-1.04 L = 6732086984) CALCIUM (test code = 4.9 mg/dL 8.6-10.6 LL 6266546260) eGFR (test code = mL/min/1.73m2 7949292155) POPPY (test code = POPPY) Association of Glomerular Filtration Rate (GFR) and Staging of Kidney Disease* + -----+ --------+ +| GFR (mL/min/1.73 m2) ?| With Kidney Damage ?| ?Without Kidney Damage+ +------- +---- --+| ?>90 ?| ?Stage one ?| ? Normal ?+ ------+ ---------+--------- +| ?60-89 ?| ?Stage two ?| ? Decreased GFR ? + -----+ --------+ +| ?30-59 ?| ?Stage three ?| ? Stage three ? + -----+ --------+ +| ?15-29 ?| ?Stage four ? | ? Stage four ?+ ------+ ---------+--------- +| ?<15 (or dialysis) ? ?| ?Stage five ? | ? Stage five ?+ ------+ ---------+--------- + *Each stage assumes the associated GFR level has been in effect for at least three months. ?Stages 1 to 5, with or without kidney disease, indicate chronic kidney disease. Notes: Determination of stages one and two (with eGFR >59mL/min/1.73 m2) requires estimation of kidney damage for at least three months as defined by structural or functional abnormalities of the kidney, manifested by either:Pathological abnormalities or Markers of kidney damage (including abnormalities in the composition of the blood or urine or abnormalities in imaging tests). Lab Interpretation Abnormal (test code = 06838-0) [facility] NEGATIVE BLOOD PATHOGENS DNA [id number] 11:42:35 Test Item Value Reference Range Interpretation Comments Escherichia coli (test Positive Negative, See A code = 20653-7) Comment/Narrative POPPY (test code = POPPY) See blood culture result for additional information. ?Testing included eight identification and six resistance marker targets. Lab Interpretation Abnormal (test code = 00650-7) [facility] NEGATIVE BLOOD PATHOGENS DNA [id number] 11:42:35 Test Item Value Reference Range Interpretation Comments Escherichia coli (test Positive Negative, See A code = 71995-9) Comment/Narrative POPPY (test code = POPPY) See blood culture result for additional information. ?Testing included eight identification and six resistance marker targets. Lab Interpretation Abnormal (test code = 58133-1) [facility] NEGATIVE BLOOD PATHOGENS DNA [id number] 11:42:35 Test Item Value Reference Range Interpretation Comments Escherichia coli (test Positive Negative, See A code = 90224-6) Comment/Narrative POPPY (test code = POPPY) See blood culture result for additional information. ?Testing included eight identification and six resistance marker targets. Lab Interpretation Abnormal (test code = 91916-6) [facility] NEGATIVE BLOOD PATHOGENS DNA [id number] 11:42:35 Test Item Value Reference Range Interpretation Comments Escherichia coli (test Positive Negative, See A code = 46111-6) Comment/Narrative POPPY (test code = POPPY) See blood culture result for additional information. ?Testing included eight identification and six resistance marker targets. Lab Interpretation Abnormal (test code = 07576-7) [facility] [id number] 14:49:57 Test Item Value Reference Range Interpretation Comments PROTIME PATIENT (test See_Comment H [Auto mated message] code = 5964-2) The system [employer] generated this result transmitted ref erence range: 10.1 - 1 2.6 Seconds. The reference range was not used to int erpret this result as normal/abnormal . INR (test code = 6301-6) Nor mal INR <1.1; Warfarin Therap eutic range 2.0 to 3. 0 or 2.5 to 3.5, dep ending upon the indica tions. Lab Interpretation (test Abnormal code = 71488-8) [facility] / [id number] 14:49:57 Test Item Value Reference Range Interpretation Comments PROTIME PATIENT (test See_Comment H [Auto mated message] code = 5964-2) The system [employer] generated this result transmitted ref erence range: 10.1 - 1 2.6 Seconds. The reference range was not used to int erpret this result as normal/abnormal . INR (test code = 6301-6) Nor mal INR <1.1; Warfarin Therap eutic range 2.0 to 3. 0 or 2.5 to 3.5, dep ending upon the indica tions. Lab Interpretation (test Abnormal code = 16448-4) [facility] / [id number] 14:49:57 Test Item Value Reference Range Interpretation Comments PROTIME PATIENT (test See_Comment H [Auto mated message] code = 5964-2) The system [employer] generated this result transmitted ref erence range: 10.1 - 1 2.6 Seconds. The reference range was not used to int erpret this result as normal/abnormal . INR (test code = 6301-6) Nor mal INR <1.1; Warfarin Therap eutic range 2.0 to 3. 0 or 2.5 to 3.5, dep ending upon the indica tions. Lab Interpretation (test Abnormal code = 83472-2) [facility] / [id number] 14:49:57 Test Item Value Reference Range Interpretation Comments PROTIME PATIENT (test See_Comment H [Auto mated message] code = 5964-2) The system [employer] generated this result transmitted ref erence range: 10.1 - 1 2.6 Seconds. The reference range was not used to int erpret this result as normal/abnormal . INR (test code = 6301-6) Nor mal INR <1.1; Warfarin Therap eutic range 2.0 to 3. 0 or 2.5 to 3.5, dep ending upon the indica tions. Lab Interpretation (test Abnormal code = 30566-0) [facility] Test Item Value Reference Range Interpretation Comments MAGNESIUM (BEAKER) (test code = 1.6 mg/dL 1.5-3.0 627) Licensed Dispensing Optician ID - LITOOperator ID - LITOOperator ID - LITOOperator ID - JOSUE COMPREHENSIVE METABOLIC [id number] 05:03:06 Test Item Value Reference Range Interpretation Comments TOTAL PROTEIN 6.2 gm/dL 6.0-8.5 (BEAKER) (test code = 770) ALBUMIN (BEAKER) 3.4 g/dL 3.5-5.0 L (test code = 1145) ALKALINE PHOSPHATASE 49 U/L 30-115 (BEAKER) (test code = 346) BILIRUBIN TOTAL 0.4 mg/dL 0.1-1.2 (BEAKER) (test code = 377) SODIUM (BEAKER) (test 139 meq/L 135-148 code = 381) POTASSIUM (BEAKER) 3.4 meq/L 3.6-5.5 L (test code = 379) CHLORIDE (BEAKER) 110 meq/L 98-106 H (test code = 382) CO2 (BEAKER) (test 21 meq/L 20-29 code = 355) BLOOD UREA NITROGEN 8 mg/dL 10-26 L (BEAKER) (test code = 354) CREATININE (BEAKER) 0.62 mg/dL 0.50-1.20 (test code = 358) GLUCOSE RANDOM 90 mg/dL 70-110 (BEAKER) (test code = 652) CALCIUM (BEAKER) 8.2 mg/dL 8.5-10.5 L (test code = 697) AST (SGOT) (BEAKER) 12 U/L 5-40 (test code = 353) ALT (SGPT) (BEAKER) 10 U/L 5-50 (test code = 347) EGFR (BEAKER) (test 135 ESTIMATE D GFR IS code = 1092) mL/min/1.73 sq NOT ACCURA TE m CREATININE CLEARANCE IN PREDICTING GLOMERULAR FILTRATION RATE . ESTIMATED GFR I S NOT APPLICABLE FOR DIALYSIS PATIEN TS. Licensed Dispensing Optician ID - [id number] ID - [id number] ID - [id number] ID - [id number] ID - QEFZSFZQF194Mladsxaw ID - [id number] ID - DNYHYPDUS977Txickbgf ID - EWWRWFAZC168Qvxytgcb ID - AGGAGERJW539Wafqupjd ID - NPSRTLCDL615Xnosghqa ID - HWCPMINVE430Xniytxzm ID - SCRJULOEK793Wfmqiloj ID - TMDXFLOZL528Myanzbox ID - IBAMVAATU982Iypinzyb ID - QAGQDPXCY751Raimnbvy ID -[id number] 05:02:36 Test Item Value Reference Range Interpretation Comments MAGNESIUM (BEAKER) (test code = 1.6 mg/dL 1.5-3.0 627) Licensed Dispensing Optician ID - [id number] ID - [id number] ID - UVRLPKEOR397Pjcrmvhu ID - [id number] W/PLT COUNT & AUTO DIFFERENTIAL 2021-10-29 04:53:31 Test Item Value Reference Range Interpretation Comments WHITE BLOOD CELL COUNT (BEAKER) 9.8 K/ L 4.0-10.0 (test code = 775) RED BLOOD CELL COUNT (BEAKER) 3.68 M/ L 4.00-5.00 L (test code = 761) HEMOGLOBIN (BEAKER) (test code = 11.8 GM/DL 12.0-15.5 L 410) HEMATOCRIT (BEAKER) (test code = 35.2 % 36.0-46.0 L 411) MEAN CORPUSCULAR VOLUME (BEAKER) 95.7 fL 82.0-99.0 (test code = 753) MEAN CORPUSCULAR HEMOGLOBIN 32.1 pg 27.0-33.0 (BEAKER) (test code = 751) MEAN CORPUSCULAR HEMOGLOBIN CONC 33.5 GM/DL 32.0-36.0 (BEAKER) (test code = 752) RED CELL DISTRIBUTION WIDTH 12.4 % 12.0-15.0 (BEAKER) (test code = 412) PLATELET COUNT (BEAKER) (test 219 K/CU MM 150-430 code = 756) MEAN PLATELET VOLUME (BEAKER) 11.2 fL 6.0-11.5 (test code = 754) NUCLEATED RED BLOOD CELLS 0 /100 WBC 0-0 (BEAKER) (test code = 413) NEUTROPHILS RELATIVE PERCENT 54 % (BEAKER) (test code = 429) LYMPHOCYTES RELATIVE PERCENT 38 % (BEAKER) (test code = 430) MONOCYTES RELATIVE PERCENT 6 % (BEAKER) (test code = 431) EOSINOPHILS RELATIVE PERCENT 2 % (BEAKER) (test code = 432) BASOPHILS RELATIVE PERCENT 0 % (BEAKER) (test code = 437) NEUTROPHILS ABSOLUTE COUNT 5.29 K/ L 1.80-8.00 (BEAKER) (test code = 670) LYMPHOCYTES ABSOLUTE COUNT 3.67 K/ L 1.48-4.50 (BEAKER) (test code = 414) MONOCYTES ABSOLUTE COUNT (BEAKER) 0.62 K/ L 0.00-1.30 (test code = 415) EOSINOPHILS ABSOLUTE COUNT 0.16 K/ L 0.00-0.50 (BEAKER) (test code = 416) BASOPHILS ABSOLUTE COUNT (BEAKER) 0.02 K/ L 0.00-0.20 (test code = 417) IMMATURE GRANULOCYTES-RELATIVE 0 % 0-0 PERCENT (BEAKER) (test code = 2801) URINALYSIS W/ REFLEX URINE [id number] 07:28:51 Test Item Value Reference Range Interpretation Comments COLOR (BEAKER) (test code = 470) Red CLARITY (BEAKER) (test code = 469) Turbid SPECIFIC GRAVITY UA (BEAKER) (test 1.020 1.001-1.035 code = 468) PH UA (BEAKER) (test code = 467) 6.0 5.0-8.0 PROTEIN UA (BEAKER) (test code = 100 mg/dL Negative A 464) GLUCOSE UA (BEAKER) (test code = Negative Negative 365) KETONES UA (BEAKER) (test code = Negative Negative 371) BILIRUBIN UA (BEAKER) (test code = Positive Negative A 462) BLOOD UA (BEAKER) (test code = 461) Large Negative A NITRITE UA (BEAKER) (test code = Negative Negative 465) LEUKOCYTE ESTERASE UA (BEAKER) Negative Negative (test code = 466) UROBILINOGEN UA (BEAKER) (test code 0.2 mg/dL 0.2-1.0 = 463) BACTERIA (BEAKER) (test code = 517) Rare RBC UA-MANUAL (BEAKER) (test code = >100 /HPF 1659) WBC UA-MANUAL (BEAKER) (test code = <5 /HPF 1661) SQUAMOUS EPITHELIAL MANUAL (BEAKER) <5 /HPF (test code = 1663) SOURCE(BEAKER) (test code = 2795) (MANUAL DIFFERENTIAL)2021-10-28 06:43:17 Test Item Value Reference Range Interpretation Comments NEUTROPHILS - REL (DIFF) (BEAKER) 60 % (test code = 1359) LYMPHOCYTES - REL (DIFF) (BEAKER) 25 % (test code = 1360) MONOCYTES - REL (DIFF) (BEAKER) 11 % (test code = 1361) EOSINOPHILS - REL (DIFF) (BEAKER) 2 % (test code = 1362) BASOPHILS - REL (DIFF) (BEAKER) 1 % (test code = 1363) ATYPICAL LYMPHOCYTE - REL (DIFF) 1 % 0-0 H (BEAKER) (test code = 260) NEUTROPHILS - ABS (DIFF) (BEAKER) 6.54 K/ L 1.80-8.00 (test code = 1365) LYMPHOCYTES - ABS (DIFF) (BEAKER) 2.73 K/ L 1.48-4.50 (test code = 1366) MONOCYTES - ABS (DIFF) (BEAKER) 1.20 K/ L 0.00-1.30 (test code = 1367) EOSINOPHILS - ABS (DIFF) (BEAKER) 0.22 K/ L 0.00-0.50 (test code = 1368) BASOPHILS - ABS (DIFF) (BEAKER) 0.11 K/ L 0.00-0.20 (test code = 1369) ATYPICAL LYMPHOCYTES - ABS (DIFF) 0.11 K/ L 0.00-0.00 H (BEAKER) (test code = 263) TOTAL COUNTED (BEAKER) (test code = 100 1351) WBC MORPHOLOGY (BEAKER) (test code Normal = 487) RBC MORPHOLOGY (BEAKER) (test code Normal = 762) LARGE PLT(BEAKER) (test code = Present 2155) CBC W/PLT COUNT & AUTO [id number] 06:43:16 Test Item Value Reference Range Interpretation Comments WHITE BLOOD CELL COUNT (BEAKER) 10.9 K/ L 4.0-10.0 H (test code = 775) RED BLOOD CELL COUNT (BEAKER) 3.87 M/ L 4.00-5.00 L (test code = 761) HEMOGLOBIN (BEAKER) (test code = 12.4 GM/DL 12.0-15.5 410) HEMATOCRIT (BEAKER) (test code = 37.0 % 36.0-46.0 411) MEAN CORPUSCULAR VOLUME (BEAKER) 95.6 fL 82.0-99.0 (test code = 753) MEAN CORPUSCULAR HEMOGLOBIN 32.0 pg 27.0-33.0 (BEAKER) (test code = 751) MEAN CORPUSCULAR HEMOGLOBIN CONC 33.5 GM/DL 32.0-36.0 (BEAKER) (test code = 752) RED CELL DISTRIBUTION WIDTH 12.5 % 12.0-15.0 (BEAKER) (test code = 412) PLATELET COUNT (BEAKER) (test 222 K/CU MM 150-430 code = 756) MEAN PLATELET VOLUME (BEAKER) 10.7 fL 6.0-11.5 (test code = 754) NUCLEATED RED BLOOD CELLS 0 /100 WBC 0-0 (BEAKER) (test code = 413) NEUTROPHILS RELATIVE PERCENT 63 % (BEAKER) (test code = 429) LYMPHOCYTES RELATIVE PERCENT 28 % (BEAKER) (test code = 430) MONOCYTES RELATIVE PERCENT 7 % (BEAKER) (test code = 431) EOSINOPHILS RELATIVE PERCENT 1 % (BEAKER) (test code = 432) BASOPHILS RELATIVE PERCENT 0 % (BEAKER) (test code = 437) NEUTROPHILS ABSOLUTE COUNT 6.87 K/ L 1.80-8.00 (BEAKER) (test code = 670) LYMPHOCYTES ABSOLUTE COUNT 3.04 K/ L 1.48-4.50 (BEAKER) (test code = 414) MONOCYTES ABSOLUTE COUNT (BEAKER) 0.79 K/ L 0.00-1.30 (test code = 415) EOSINOPHILS ABSOLUTE COUNT 0.10 K/ L 0.00-0.50 (BEAKER) (test code = 416) BASOPHILS ABSOLUTE COUNT (BEAKER) 0.04 K/ L 0.00-0.20 (test code = 417) IMMATURE GRANULOCYTES-RELATIVE 0 % 0-0 PERCENT (BEAKER) (test code = 2801) LIPID [id number] 06:17:06 Test Item Value Reference Range Interpretation Comments TRIGLYCERIDES (BEAKER) (test code = 71 mg/dL 540) CHOLESTEROL (BEAKER) (test code = 115 mg/dL 631) HDL CHOLESTEROL (BEAKER) (test code 30 mg/dL = 976) LDL CHOLESTEROL CALCULATED (BEAKER) 71 mg/dL (test code = 633) Triglyceride Reference Range: Low Risk <150 Borderline 150-199 High Risk 200- 499 Very High Risk >=500Cholesterol Reference Range: Low Risk <200 Borderline 200-239 High Risk >240HDL Cholesterol Reference Range: Low Risk >=60 High Risk <40LDL Cholesterol Reference Range: Optimal <100 Near Optimal 100-129 Borderline 130-159 High 160-189 Very High >=190 Licensed Dispensing Optician ID - [id number] ID - qpjb68Rkxieuxy ID - zshs08Dhfbnyvl ID - nqpq37Wxlmqpia ID - jqjq63Bqpbvmtk ID - inly58ZIHUSUNVZBXGO METABOLIC [id number] 06:14:44 Test Item Value Reference Range Interpretation Comments TOTAL PROTEIN 6.4 gm/dL 6.0-8.5 (BEAKER) (test code = 770) ALBUMIN (BEAKER) 3.5 g/dL 3.5-5.0 (test code = 1145) ALKALINE PHOSPHATASE 49 U/L 30-115 (BEAKER) (test code = 346) BILIRUBIN TOTAL 0.8 mg/dL 0.1-1.2 (BEAKER) (test code = 377) SODIUM (BEAKER) (test 141 meq/L 135-148 code = 381) POTASSIUM (BEAKER) 3.6 meq/L 3.6-5.5 (test code = 379) CHLORIDE (BEAKER) 111 meq/L 98-106 H (test code = 382) CO2 (BEAKER) (test 23 meq/L 20-29 code = 355) BLOOD UREA NITROGEN 11 mg/dL 10-26 (BEAKER) (test code = 354) CREATININE (BEAKER) 0.72 mg/dL 0.50-1.20 (test code = 358) GLUCOSE RANDOM 91 mg/dL 70-110 (BEAKER) (test code = 652) CALCIUM (BEAKER) 8.6 mg/dL 8.5-10.5 (test code = 697) AST (SGOT) (BEAKER) 12 U/L 5-40 (test code = 353) ALT (SGPT) (BEAKER) 9 U/L 5-50 (test code = 347) EGFR (BEAKER) (test 114 ESTIMATE D GFR IS code = 1092) mL/min/1.73 sq NOT ACCURA TE m CREATININE CLEARANCE IN PREDICTING GLOMERULAR FILTRATION RATE . ESTIMATED GFR I S NOT APPLICABLE FOR DIALYSIS PATIEN TS. Licensed Dispensing Optician ID - [id number] ID - whuq30Pfhewklb ID - ligc73Uaoeymje ID - flpe18Beldcnzk ID - brvd78Xerjcrih ID - zfit39Xwzoyyop ID - vnso53Ouormaaa ID - fxvj64Jzgnuppg ID - reay94Zbfylvwc ID - lzwj84Geylcbvf ID - doac65Kwirdjoh ID - lrsq35Ovtawzng ID - hzkm16Yqrekiqk ID - otsi85Iexfjbzy ID - hhyu71Nfhxnxip ID - opsj56Czohhxyp ID - qfzc17Rzggxyga ID - wzot79Fpwszutc ID - madj12OAJFFUR FUNCTION [id number] 06:12:59 Test Item Value Reference Range Interpretation Comments TOTAL PROTEIN (BEAKER) (test code = 6.4 gm/dL 6.0-8.5 770) ALBUMIN (BEAKER) (test code = 1145) 3.5 g/dL 3.5-5.0 BILIRUBIN TOTAL (BEAKER) (test code 0.7 mg/dL 0.1-1.2 = 377) BILIRUBIN DIRECT (BEAKER) (test 0.4 mg/dL 0.0-0.4 code = 706) ALKALINE PHOSPHATASE (BEAKER) (test 50 U/L 30-115 code = 346) AST (SGOT) (BEAKER) (test code = 12 U/L 5-40 353) ALT (SGPT) (BEAKER) (test code = 9 U/L 5-50 347) Licensed Dispensing Optician ID - [id number] ID - jhcp94Ubelicfg ID - rbvo52Ccljnean ID - wgsv19Repfobrr ID - rhwp68Svestmul ID - rlzk58Luxzafry ID - kbhq61NXQXRMDCGSMUV METABOLIC [id number] 06:12:59 Test Item Value Reference Range Interpretation Comments TOTAL PROTEIN 6.4 gm/dL 6.0-8.5 (BEAKER) (test code = 770) ALBUMIN (BEAKER) 3.5 g/dL 3.5-5.0 (test code = 1145) ALKALINE PHOSPHATASE 50 U/L 30-115 (BEAKER) (test code = 346) BILIRUBIN TOTAL 0.7 mg/dL 0.1-1.2 (BEAKER) (test code = 377) SODIUM (BEAKER) (test 140 meq/L 135-148 code = 381) POTASSIUM (BEAKER) 3.6 meq/L 3.6-5.5 (test code = 379) CHLORIDE (BEAKER) 111 meq/L 98-106 H (test code = 382) CO2 (BEAKER) (test 22 meq/L 20-29 code = 355) BLOOD UREA NITROGEN 11 mg/dL 10-26 (BEAKER) (test code = 354) CREATININE (BEAKER) 0.72 mg/dL 0.50-1.20 (test code = 358) GLUCOSE RANDOM 91 mg/dL 70-110 (BEAKER) (test code = 652) CALCIUM (BEAKER) 8.6 mg/dL 8.5-10.5 (test code = 697) AST (SGOT) (BEAKER) 12 U/L 5-40 (test code = 353) ALT (SGPT) (BEAKER) 9 U/L 5-50 (test code = 347) EGFR (BEAKER) (test 114 ESTIMATE D GFR IS code = 1092) mL/min/1.73 sq NOT ACCURA TE m CREATININE CLEARANCE IN PREDICTING GLOMERULAR FILTRATION RATE . ESTIMATED GFR I S NOT APPLICABLE FOR DIALYSIS PATIEN TS. Licensed Dispensing Optician ID - [id number] ID - hrat32Sbbmgztb ID - wwho52Ixbsvrvc ID - zpkf89Tdvthupe ID - krrp73Sbrrnlih ID - pifv09Plcbynfo ID - ybmh82Nullstyq ID - zryb16Puucmstv ID - wnin62Dhnpwvxc ID - lmql12EPERLEW SCREEN (GRAHAM) IGG 2020-08-27 17:22:44 Test Item Value Reference Range Interpretation Comments Rubella screen IgG Positive Negative (test code = 7433515474) POPPY (test code = POPPY) Positive - Indicates the patient was exposed to Rubella through infection or vaccination.Negative - Indicates the patient could be susceptible to Rubella infection.Equivocal - A second specimen should be sent. [id number] 17:22:44 Test Item Value Reference Range Interpretation Comments VZV IgG antibody Equivocal Negative (test code = 05423-7) POPPY (test code = POPPY) Positive - Indicates the patient was exposed to VZV through infection or vaccination.Negative - Indicates the patient could be susceptible to VZV infection.Equivocal - A second specimen should be sent for testing. [facility] SYPHILIS [id number] 16:52:20 Test Item Value Reference Range Interpretation Comments Syphilis IgG/IgM (test Non-reactive Non-reactive code = 50696-2) POPPY (test code = POPPY) Non-reactive - No serologic evidence of T. pallidum infection. Cannot exclude incubating or early syphilis. Submit a second specimen in 2-4 weeks if syphilis is clinically suspected. Equivocal - Further testing to follow. Reactive - Further testing to follow. Lab Interpretation (test Normal code = 04335-6) [facility] Dallas[facility]/2 AG-AB WITH [id number] 07:38:41 Test Item Value Reference Range Interpretation Comments HIV Negative Negative Semi-quantitative (test code = 04872-2) POPPY (test code = Non-reactive for HIV-1 POPPY) antigen and HIV-1/HIV-2 antibodies. ?No laboratory evidence of HIV infection. ?Repeat in 2-4 weeks if acute HIV infection is suspected. [facility] WORK[facility], BLOOD [id number] 07:36:16 Test Item Value Reference Range Interpretation Comments ABO & RH (test code O POSITIVE Performe d at [facility] = 20) Laboratory [facility] s [address]Pzyy Free: [phone] A No. [id number] IAT (test code = Negative Performed a t [facility] 1185) Laboratory [facility] [address] [place], [place] [address] [address]Muym Free: [phone] A No. [id number] [facility] DallasHEPATITIS B SURFACE [id number] 06:39:54 Test Item Value Reference Range Interpretation Comments HBsAg Semi-Quantitative (test code = Negative Negative 5195-3) [facility] DallasTHYROID STIMULATING [id number] 06:39:54 Test Item Value Reference Range Interpretation Comments TSH (test code = See_Comment Biotin has been [id number]) reported to cau se a negative bias, interpret resul ts relative to pat ient's use of biotin. [Automated mess age] The system whic h generated this result transmitted ref erence range: 0.45 - 4 .70 mIU/L. The refe rence range was not u sed to interpret this result as normal/abnor mal. Lab Interpretation (test Normal code = 14785-7) [facility] WITH [id number] 05:45:28 Test Item Value Reference Range Interpretation Comments WBC (test code = See_Comment [Automated 8090-2) message] The sy stem which generated this result transmitted reference range : 4.30 - 11.10 10*3/?L. The reference range was not used to interpret this result as normal/abnormal . RBC (test code = See_Comment [Automated 549-8) message] The sy stem which generated this result transmitted reference range : 3.93 - 5.25 10*6/?L. The reference range was not used to interpret this result as normal/abnormal . HGB (test code = 13.4 g/dL 11.6-15.0 718-7) HCT (test code = 39.4 % 35.7-45.2 4544-3) MCV (test code = 91.0 fL 80.6-95.5 787-2) MCH (test code = 30.9 pg 25.9-32.8 785-6) MCHC (test code = 34.0 g/dL 31.6-35.1 786-4) RDW-SD (test code = 41.8 fL 39.0-49.9 98168-2) RDW-CV (test code = 12.6 % 12.0-15.5 788-0) PLT (test code = See_Comment [Automated 777-3) message] The sy stem which generated this result transmitted reference range : 166 - 358 10*3/ ?L. The reference r kg was not used to interpret this result as normal/abnormal . MPV (test code = 10.8 fL 9.5-12.9 54465-5) NRBC/100 WBC (test See_Comment [Automat ed code = [id number]) message] The system which generated this result transmitted reference range : 0.0 - 10.0 /100 WBCs. The refer ence range was not u sed to interpret th is result as normal/abnormal . NRBC x10^3 (test code <0.01 See_Comment [Auto mated = [id number]) message] The s ystem which generated this result transmitted reference range : 10*3/?L. The reference range was not used to interpret this result as normal/abnormal . GRAN MAT (NEUT) % 69.8 % (test code = 770-8) IMM GRAN % (test code 0.20 % = [id number]) LYMPH % (test code = 22.0 % 736-9) MONO % (test code = 6.2 % 5905-5) EOS % (test code = 1.4 % 713-8) BASO % (test code = 0.4 % 706-2) GRAN MAT x10^3(ANC) 7.59 10*3/uL 1.88-7.09 H (test code = [id number]) IMM GRAN x10^3 (test <0.03 0.00-0.06 code = [id number]) LYMPH x10^3 (test code 2.39 10*3/uL 1.32-3.29 = 731-0) MONO x10^3 (test code 0.67 10*3/uL 0.33-0.92 = 742-7) EOS x10^3 (test code = 0.15 10*3/uL 0.03-0.39 711-2) BASO x10^3 (test code 0.04 10*3/uL 0.01-0.07 = 704-7) Lab Interpretation Abnormal (test code = 57947-5) [facility] [id number] 18:55:00 Test Item Value Reference Range Interpretation Comments POCT PREG (test code = 1605) Positive On board controls acceptable with C Yes Line (test code = 3574) POCT PREG LOT # (test code = 3575) POCT PREG TEST DATE (test code = 3576[facility] [id number] 18:55:00 Test Item Value Reference Range Interpretation Comments POCT PH U (test code = 3254) 5 mg/dl 5-8 POCT U LEUK EST (test code = 2+ Negative - Negative 3) POCT U NIT (test code = 3262) Neg Negative - Negative POCT U PROT (test code = 3259) Trace Negative - Negative POCT U GLU (test code = 3256) Neg Negative - Negative POCT U KETONE (test code = 3258) 2+ Negative - Negative POCT U BLD (test code = 3257) Large Negative - Negative [facility]"
[2022-10-06] MEDS ORDERED: NA CHLORIDE 0.9% 1,000 ML ONE (12:11)
[2022-10-06 12:34] LABS: Urine Bacteria None Seen /HPF (<20); Urine Bilirubin NEGATIVE (Negative); Urine Blood Trace (Negative); Urine Clarity Clear (Clear); Urine Color Light-Yellow (Yellow); Urine Glucose NEGATIVE (Negative); Urine Mucus Slight /HPF (None Seen); Urine Protein TRACE (Negative); Urine Urobilinogen 1+ (Normal)
[2022-10-06] MEDS ORDERED: MORPHINE 2 MG/ML SYR ONE (12:44)
[2022-10-06] MEDS ORDERED: ONDANSETRON 4 MG/2 ML VIAL ONE ×2 (12:46→13:03)
--- NOTE | 2022-10-06 13:03 | RAD REPORT ---
EXAM DESCRIPTION: US - Transvaginal OB - 10/06/2022 12:34 pm CLINICAL HISTORY: pelvic pain COMPARISON: Transvaginal OB dated 05/13/2022 TECHNIQUE: Sonographic grayscale and color flow images of a first-trimester were obtained through approach. FINDINGS: A single intrauterine is identified, with gestational sac measuring up to 1.36 c m in greatest dimension, and a small pole noted superficially, measuring 4.4 millimeter in grea test crown-rump length. This would correspond to gestational age of 6 weeks and 1 day. Debris seen wi thin the gestational sac. No definitive pulsation is identified. Ovoid liquefied structure with internal hemorrhage/ debris near the fundus, more superior to the gest ational sac, measuring 2.4 x 2.5 centimeter in greatest dimension, with surrounding white echogenic m argin. This could represent a subchorionic hemorrhage, less likely a degenerating fibroid. No yolk sac is visualized. Right ovary measures 1.9 x 1.6 x 1.0 centimeter. Left ovary measures 2.7 x 1.5 x 1.4 centimeter. No free fluid. IMPRESSION: 1. Single intrauterine as described above. No definitive pulsation is id entified. 2. Ovoid centrally liquified 2.5 centimeter structure, more superiorly at the fundus, may represent a subchorionic hemorrhage. 3. A follow-up ultrasound is recommended in 7-10 days to re-evaluate for viability, as well as to re-evaluate the presumed subchorionic hemorrhage which would elevate risk. 4. No adnexal or other abnormality.
[2022-10-06 13:09] LABS: Absolute Lymphocytes (CBC) 1.6 K/uL (0.7-4.9); Hematocrit 35.6 % (36.0-45.0); Lymphocytes % 16.8 % (15.3-44.8); MCV 87.8 fL (80-100); MPV 8.6 fL (7.6-11.3); RBC Red Blood Cell Count 4.05 M/uL (3.86-4.86)
[2022-10-06 13:36] LABS: Potassium 3.6 mEq/L (3.5-5.1)
--- NOTE | 2022-10-06 13:57 | EDPHYS ---
Physician Documentation [facility] Name: Daniella Gallego Age: 32 yrs Sex: Female : 1990 Arrival Date: 10/06/2022 Time: 11:39 Bed 25 Private MD: ED Physician Clay Guevara HPI: 10/06 11:59 This 32 yrs old Female presents to ER via Ambulatory with complaints of jmm Vaginal Bleeding. 11:59 The patient presents with vaginal bleeding that is. Onset: The symptoms/episode jmm began/occurred 2 day(s) ago. Modifying factors: The symptoms are alleviated by nothing, the symptoms are aggravated by nothing. This is a 21/f with complaints of pelvic cramping, vaginal bleeding beginning approx 2 days ago. patient recently had a dnc earlier this year for . . 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 - Social history:: Smoking status: Patient denies any tobacco usage or history of. ROS: 11:59 Constitutional: Negative for fever, chills, and weight loss, Cardiovascular: Negative jmm for chest pain, palpitations, and edema, Respiratory: Negative for shortness of breath, cough, wheezing, and pleuritic chest pain. 11:59 : Positive for vaginal bleeding. 11:59 All other systems are negative. Exam: 11:59 Constitutional: This is a well developed, well nourished patient who is awake, alert, jmm and in no acute distress. Head/Face: atraumatic. Eyes: EOMI, no conjunctival erythema appreciated ENT: Moist Mucus Membranes Neck: Trachea midline, Supple Chest/axilla: Normal chest wall appearance and motion. Cardiovascular: Regular rate and rhythm. No edema appreciated Respiratory: Normal respirations, no respiratory distress appreciated Abdomen/GI: Non distended Back: Normal ROM Skin: General appearance color normal 11:59 MS/ Extremity: Moves all extremities, no obvious deformities appreciated, no edema noted to the lower extremities Neuro: Awake and alert Psych: Behavior is normal, Mood is normal, Patient is cooperative and pleasant 11:59 : Pelvic Exam: Speculum exam: mild bleeding, os that is closed. Vital Signs: 11:50 BP 97 / 78; Pulse 89; Resp 18; Temp 98.4; Pulse Ox 100% on R/A; Weight 74.84 kg; Height hb 5 ft. 4 in. ; Pain 7/10; 12:00 BP 111 / 72; Pulse 83; Resp 18; Pulse Ox 95% on R/A; eh3 13:00 BP 101 / 63; Pulse 72; Resp 16; Pulse Ox 100% on R/A; eh3 14:00 BP 101 / 63; Pulse 72; Resp 16; Pulse Ox 98% on R/A; eh3 11:50 Body Mass Index 28.32 (74.84 kg, 162.56 cm) hb 11:50 Pain Scale: Adult hb MDM: 11:59 Patient medically screened. [facility] 11:59 Differential diagnosis: theatened , dub, inevitable , incomplete [facility] . 13:55 Data reviewed: vital signs, nurses notes, lab test result(s), radiologic studies, [facility] ultrasound. 13:55 I considered the following discharge prescriptions or medication management in the [facility] emergency department Medications were administered in the Emergency Department. See MAR. Counseling: I had a detailed discussion with the patient and/or guardian regarding: the historical points, exam findings, and any diagnostic results supporting the discharge/admit diagnosis, lab results, radiology results, the need for outpatient follow up, to return to the emergency department if symptoms worsen or persist or if there are any questions or concerns that arise at home. 10/06 12:02 Order name: Basic Metabolic Panel; Complete Time: 13:56 [facility] 10/06 12:02 Order name: CBC with Diff; Complete Time: 13:13 [facility] 10/06 12:02 Order name: Test, Urine; Complete Time: 12:33 [facility] 10/06 12:02 Order name: Quantitative Hcg; Complete Time: 13:56 [facility] 10/06 12:02 Order name: Urinalysis w/ reflexes; Complete Time: 12:36 [facility] 10/06 12:02 Order name: Type And Screen; Complete Time: 13:56 [facility] 10/06 12:02 Order name: US Transvaginal Ob; Complete Time: 13:07 [facility] 10/06 12:02 Order name: IV Saline Lock; Complete Time: 13:03 [facility] 10/06 12:02 Order name: Labs collected and sent; Complete Time: 13:03 [facility] 10/06 12:02 Order name: NPO; Complete Time: 12:03 [facility] 10/06 12:02 Order name: Pelvic Exam Setup; Complete Time: 12:21 [facility] Administered Medications: 12:50 Drug: NS 0.9% IV 1000 ml Route: IV; Rate: 1 bolus; Site: right hand; 3 14:00 Follow up: IV Status: Completed infusion; IV Intake: 1000ml 3 12:50 Drug: morphine IVP or IV 2 mg Route: IVP; Infused Over: 4 mins; Site: right hand; 3 14:00 Follow up: Response: No adverse reaction; Pain is decreased 3 12:50 Drug: Ondansetron IVP 4 mg Route: IVP; Site: right hand; 3 14:00 Follow up: Response: No adverse reaction 3 Disposition: 20:06 Co-signature as Attending Physician, Clay LAL was immediately available on-site ms3 in the Emergency Department for consultation in the care of the patient. Disposition Summary: 10/06/22 13:57 Discharge Ordered Location: Home [facility] Condition: Stable [facility] Diagnosis - Threatened [facility] Followup: [facility] - With: Private Physician - When: 2 - 3 days - Reason: Recheck today's complaints, Continuance of care, Repeat Beta-HCG (48 Hours), Re-evaluation by your physician Discharge Instructions: - Discharge Summary Sheet jm - Threatened Miscarriage jmm - Subchorionic Hematoma [facility] Forms: - Medication Reconciliation Form [facility] - Thank You Letter [facility] - Antibiotic Education [facility] - Prescription Opioid Use [facility] - Work release form 3 Signatures: Dispatcher [employer] EDMS Hari Stevenson PA PA jmm Baxter, Heather RN Clay Patricia DO DO ms3 Hilda Mcghee RN RN 3 Corrections: (The following items were deleted from the chart) 13:12 12:02 ABO/RH TYPING+BB.LAB.BRZ ordered. EDMS EDMS
--- NOTE | 2022-10-06 13:57 | ER ---
Nurse's Notes [facility] Name: Daniella Gallego Age: 32 yrs Sex: Female : 1990 Arrival Date: 10/06/2022 Time: 11:39 Bed 25 Private MD: Diagnosis: Threatened Presentation: 10/06 11:50 Chief complaint: Pt is approx 6 weeks , , sees [facility] in [facility] reports low back pain that radiates to legs and groin since yesterday, vaginal bleeding since 0400 today. Coronavirus screen: At this time, the client does not indicate any symptoms associated with coronavirus-19. Ebola Screen: No symptoms or risks identified at this time. Initial Sepsis Screen: Does the patient meet any 2 criteria? No. Patient's initial sepsis screen is negative. Does the patient have a suspected source of infection? No. Patient's initial sepsis screen is negative. Risk Assessment: Do you want to hurt yourself or someone else? Patient reports no desire to harm self or others. Onset of symptoms was October 05, 2022. 11:50 Method Of Arrival: Ambulatory 11:50 Acuity: TANNER 3 hb Triage Assessment: 12:00 General: Appears in no apparent distress. uncomfortable, Behavior is cooperative, eh3 appropriate for age, anxious. Pain: Complains of pain in abdomen Pain radiates to right leg and left leg. Neuro: Level of Consciousness is awake, alert, obeys commands, Oriented to person, place, time, situation. Cardiovascular: Capillary refill < 3 seconds Patient's skin is warm and dry. Respiratory: Airway is patent Respiratory effort is even, unlabored, Respiratory pattern is regular, symmetrical. GI: Abdomen is round non-distended, Reports lower abdominal pain, cramping. : Reports vaginal bleeding that is bright red, moderate flow. Derm: Skin is pink, warm \T\ dry. Musculoskeletal: Circulation, motion, and sensation intact. Range of motion: intact in all extremities. 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 - Social history:: Smoking status: Patient denies any tobacco usage or history of. Screenin:00 [facility] ED Fall Risk Assessment (Adult) Score/Fall Risk Level 0 - 2 = Low Risk. Abuse eh3 screen: Denies threats or abuse. Denies injuries from another. Nutritional screening: No deficits noted. Tuberculosis screening: No symptoms or risk factors identified. Assessment: 12:00 Reassessment: No changes from previously documented assessment. See triage assessment. eh3 13:00 Reassessment: Patient appears in no apparent distress at this time. Patient and/or eh3 family updated on plan of care and expected duration. Pain level reassessed. Patient is alert, oriented x 3, equal unlabored respirations, skin warm/dry/pink. 14:00 Reassessment: Patient appears in no apparent distress at this time. Patient and/or eh3 family updated on plan of care and expected duration. Pain level reassessed. Patient is alert, oriented x 3, equal unlabored respirations, skin warm/dry/pink. Vital Signs: 11:50 BP 97 / 78; Pulse 89; Resp 18; Temp 98.4; Pulse Ox 100% on R/A; Weight 74.84 kg; Height hb 5 ft. 4 in. ; Pain 7/10; 12:00 BP 111 / 72; Pulse 83; Resp 18; Pulse Ox 95% on R/A; eh3 13:00 BP 101 / 63; Pulse 72; Resp 16; Pulse Ox 100% on R/A; eh3 14:00 BP 101 / 63; Pulse 72; Resp 16; Pulse Ox 98% on R/A; eh3 11:50 Body Mass Index 28.32 (74.84 kg, 162.56 cm) hb 11:50 Pain Scale: Adult hb ED Course: 11:41 Patient arrived in ED. ts1 11:41 Hari Stevenson PA is PHCP. [facility] 11:41 Clay Guevara DO is Attending Physician. [facility] 11:53 Triage completed. hb 11:55 Hilda Mcghee, ROD is Primary Nurse. eh3 12:00 Patient has correct armband on for positive identification. Placed in gown. Bed in low eh3 position. Call light in reach. Side rails up X2. Pulse ox on. NIBP on. Door closed. Noise minimized. Lights dimmed. Warm blanket given. 12:00 Arm band placed on. eh3 12:10 Missed attempt(s): 20 gauge in right antecubital area. Bleeding controlled, band aid eh3 applied, catheter tip intact. 12:36 US Transvaginal Ob In Process Unspecified. EDMS 12:45 Inserted saline lock: 22 gauge in right hand, using aseptic technique. Blood collected. eh3 13:30 Assist provider with pelvic exam: Set up pelvic tray. Performed by Hari SEGAL eh3 Patient tolerated well. 14:27 IV discontinued, intact, bleeding controlled, No redness/swelling at site. Pressure eh3 dressing applied. Administered Medications: 12:50 Drug: NS 0.9% IV 1000 ml Route: IV; Rate: 1 bolus; Site: right hand; eh3 14:00 Follow up: IV Status: Completed infusion; IV Intake: 1000ml 3 12:50 Drug: morphine IVP or IV 2 mg Route: IVP; Infused Over: 4 mins; Site: right hand; eh3 14:00 Follow up: Response: No adverse reaction; Pain is decreased eh3 12:50 Drug: Ondansetron IVP 4 mg Route: IVP; Site: right hand; eh3 14:00 Follow up: Response: No adverse reaction eh3 Medication: 14:31 VIS not applicable for this client. eh3 Intake: 14:00 IV: 1000ml; Total: 1000ml. eh3 Outcome: 13:57 Discharge ordered by MD. mayer 14:31 Discharged to home ambulatory. 3 14:31 Condition: stable 14:31 Discharge instructions given to patient, Instructed on discharge instructions, follow up and referral plans. Demonstrated understanding of instructions, follow-up care. 14:35 Patient left the ED. eh3 Signatures: Dispatcher [employer] EDIA Hari Stevenson PA PA jmm Baxter, Heather, RN RN Hilda Mcghee RN RN eh3 Marianela Boswell PAS PAS ts1
[2022-10-06 14:45] VITALS: TEMP 98.4
[2022-10-06 14:57] VITALS: BP 101/63
[2022-10-06 15:02] VITALS: O2SAT 98
== END 2022-10-06 14:35 | disposition home or self-care (01) ==
LOC: ER 11:39
DX: O20.0 Threatened abortion (principal); Z3A.01 Less than 8 weeks gestation of pregnancy; M54.59 Other low back pain; N93.8 Other specified abnormal uterine and vaginal bleeding; Z88.8 Allergy status to other drugs, medicaments and biological substances
CPT/HCPCS: 96361; 85025; 81001; 80048; 36415; 86900; 86850; 81025; 86901; 84702; 76817; 96375; 96374; 99284; J2270; J2405; J7030

== ENCOUNTER 2023-04-07 08:17 | Inpatient (IN) | payer OTHER, SELFPAY ==
[2023-04-07] MEDS ORDERED: ONDANSETRON 4 MG/2 ML VIAL ONE (09:21)
[2023-04-07] MEDS ORDERED: HYDROMORPHONE HCL 1 MG/ML INJ ONE ×2 (09:21→12:36)
[2023-04-07] MEDS ORDERED: NA CHLORIDE 0.9% 1,000 ML ONE (09:21)
[2023-04-07 09:32] LABS: Absolute Lymphocytes (CBC) 1.9 K/uL (0.7-4.9); Lymphocytes % 13.5 % (15.3-44.8); MPV 8.3 fL (7.6-11.3); Platelets 268 thou/uL (152-406); RBC Red Blood Cell Count 4.45 M/uL (3.86-4.86)
[2023-04-07 10:00] LABS: Albumin 3.7 g/dL (3.4-5.0); Bilirubin Total 0.5 mg/dL (0.2-1.0); Potassium 3.9 mEq/L (3.5-5.1); Protein, Total 7.4 g/dL (6.4-8.2)
[2023-04-07 10:21] LABS: Anisocytosis 1+; Blood Morphology Comment NOTED (NOT SEEN); Platelet Estimate ADEQ; White Blood Cell Scan OK (OK)
[2023-04-07 10:42] LABS: Specific Gravity > 1.030 (1.005-1.030)
[2023-04-07 10:45] LABS: Specific Gravity > 1.030 (1.005-1.030); Urine Bacteria None Seen /HPF (<20); Urine Bilirubin NEGATIVE (Negative); Urine Blood 1+ (Negative); Urine Clarity Clear (Clear); Urine Color Yellow (Yellow); Urine Glucose NEGATIVE (Negative); Urine Mucus Slight /HPF (None Seen); Urine Protein NEGATIVE (Negative); Urine Urobilinogen Normal (Normal); Urine pH 5.5 (5.0-7.0)
--- NOTE | 2023-04-07 11:28 | RAD REPORT ---
EXAM DESCRIPTION: CT - Abdomen Pelvis W Contrast - 04/07/2023 10:55 am CLINICAL HISTORY: Abdominal pain COMPARISON: 2020 TECHNIQUE: Computed axial tomography of the abdomen pelvis was obtained. 100 cc Isovue-300 was admin istered intravenously. Oral contrast was not requested which limits evaluation of bowel and appendix All CT scans are performed using dose optimization technique as appropriate and may include automated exposure control or mA/KV adjustment according to patient size. FINDINGS: The liver, spleen, pancreas, adrenal and kidneys appear unremarkable. There is no evidence of diverticulitis. Short-segment narrowing of the mid transverse colon. No adjacent lymphadenopathy Normal appendix. No adnexal mass IMPRESSION: Short segment narrowing mid transverse colon may be secondary to spasm resulting in inco mplete distention. Pathology such as inflammation or mass can also have this appearance and follow up is recommended
--- NOTE | 2023-04-07 11:59 | EDPHYS ---
Physician Documentation [facility] Name: Daniella Gallego Age: 32 yrs Sex: Female : 1990 Arrival Date: 04/07/2023 Time: 08:17 Bed 12 Private MD: ED Physician Jennifer Velasco HPI: 04/07 08:55 This 32 yrs old Female presents to ER via Ambulatory with complaints of sp3 Abdominal Pain. 08:55 32-year-old female with a history of kidney stones and prior complications sp3 now presents to the ED for chief complaint epigastric pain that started approximately 4 AM today which awoke her from her sleep. Patient states the pain is sharp in nature and goes from her epigastric region to her back. No prior surgical history reported. She denies URI symptoms, fever, cough, chest pain, upper back pain, low back pain, symptoms, GOLF CADDY symptoms, diarrhea, known sick contacts, travel history or any other aspect of ROS at this time. Patient does endorse a few episodes of dry heaving/vomiting but "nothing really came up".. 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 - Social history:: Smoking status: Reported history of juuling and/or vaping. ROS: 08:56 Constitutional: Negative for fever, chills, and weight loss, Eyes: Negative for injury, sp3 pain, redness, and discharge, ENT: Negative for injury, pain, and discharge, Neck: Negative for injury, pain, and swelling, Cardiovascular: Negative for chest pain, palpitations, and edema, Respiratory: Negative for shortness of breath, cough, wheezing, and pleuritic chest pain, Back: Negative for injury and pain, : Negative for injury, bleeding, discharge, and swelling, MS/Extremity: Negative for injury and deformity, Skin: Negative for injury, rash, and discoloration, Neuro: Negative for headache, weakness, numbness, tingling, and seizure, Psych: Negative for depression, anxiety, suicide ideation, homicidal ideation, and hallucinations, Allergy/Immunology: Negative for hives, rash, and allergies, Endocrine: Negative for neck swelling, polydipsia, polyuria, polyphagia, and marked weight changes, Hematologic/Lymphatic: Negative for swollen nodes, abnormal bleeding, and unusual bruising, 08:56 All other systems are negative, Exam: 08:56 Constitutional: This is a well developed, well nourished patient who is awake, alert, sp3 and in no acute distress. Head/Face: Normocephalic, atraumatic. Eyes: Pupils equal round and reactive to light, extra-ocular motions intact. Lids and lashes normal. Conjunctiva and sclera are non-icteric and not injected. Cornea within normal limits. Periorbital areas with no swelling, redness, or edema. ENT: Nares patent. No nasal discharge, no septal abnormalities noted. External auditory canals are clear. Oropharynx with no redness, swelling, or masses, exudates, or evidence of obstruction, uvula midline. Mucous membranes moist. Neck: Trachea midline, no thyromegaly or masses palpated, and no cervical lymphadenopathy. Supple, full range of motion without nuchal rigidity, or vertebral point tenderness. No Meningismus. Chest/axilla: Normal chest wall appearance and motion. Nontender with no deformity. No lesions are appreciated. Cardiovascular: Regular rate and rhythm with a normal S1 and S2. No gallops, murmurs, or rubs. Normal PMI, no JVD. No pulse deficits. Respiratory: Lungs have equal breath sounds bilaterally, clear to auscultation and percussion. No rales, rhonchi or wheezes noted. No increased work of breathing, no retractions or nasal flaring. Back: No spinal tenderness. No costovertebral tenderness. Full range of motion. Skin: Warm, dry with normal turgor. Normal color with no rashes, no lesions, and no evidence of cellulitis. MS/ Extremity: Pulses equal, no cyanosis. Neurovascular intact. Full, normal range of motion. Neuro: Awake and alert, GCS 15, oriented to person, place, time, and situation. Cranial nerves II-XII grossly intact. Motor strength 5/5 in all extremities. Sensory grossly intact. Cerebellar exam normal. Normal gait. Psych: Awake, alert, with orientation to person, place and time. Behavior, mood, and affect are within normal limits. 08:56 Abdomen/GI: Patient has moderate epigastric pain on palpation with voluntary guarding noted. Lower abdomen is only mildly tender. No CVA tenderness., Vital Signs: 08:41 BP 114 / 80; Pulse 73; Resp 16; Pulse Ox 100% on R/A; Weight 69.85 kg; Height 5 ft. 4 iw in. ; Pain 9/10; 13:14 BP 114 / 76; Pulse 68; Resp 16; Pulse Ox 99% on R/A; me1 16:05 BP 105 / 72; Pulse 83; Resp 17; Pulse Ox 100% on R/A; me1 08:41 Body Mass Index 26.43 (69.85 kg, 162.56 cm) iw 08:41 Pain Scale: Adult iw MDM: 08:50 Patient medically screened. sp3 08:57 Data reviewed: vital signs, nurses notes. ED course: 32-year-old female with epigastric sp3 pain. Differential diagnosis includes gastritis, peptic ulcer, biliary pathology including cholecystitis, cholelithiasis, choledocholithiasis, pancreatitis, constipation, among others. I am not highly suspicious for vascular pathology including aortic aneurysm and/or dissection, mesenteric ischemia, ACS, sepsis, shock, GOLF CADDY pathology, pathology, or any other signs or symptoms critical pathway/pathology at this time. Workup will include laboratory values, CT scan of the abdomen pelvis, urine analysis and symptomatic control with normal saline, Dilaudid, Zofran.. 11:57 ED course: Patient has narrowing of the transverse colon and 14,000 white count with sp3 continued pain. I spoke to Dr. Jimenez a general surgeon who would like patient admitted for IV antibiotics and continued observation with GI consult for colonoscopy.. 12 09:00 Order name: CBC with Diff; Complete Time: 10:48 sp3 12 09:00 Order name: CMP; Complete Time: 10:48 sp3 12 09:00 Order name: Lipase; Complete Time: 10:48 sp3 12 09:00 Order name: Test, Urine; Complete Time: 10:48 sp3 12 09:00 Order name: Urinalysis w/ reflexes; Complete Time: 10:48 sp3 04/07 09:35 Order name: CBC Smear Scan; Complete Time: 10:48 EDMS 04/07 09:00 Order name: CT Abd/Pelvis - IV Contrast Only; Complete Time: 11:36 sp3 04/07 09:00 Order name: IV Saline Lock; Complete Time: :36 sp3 04/07 09:00 Order name: Labs collected and sent; Complete Time: 09:17 sp3 Administered Medications: 09:14 Drug: NS 0.9% IV 1000 ml IV at 1 bolus Per protocol; 1000 mL bolus Route: IV; Rate: 1 iw bolus; Site: left antecubital; 13:32 Follow up: IV Status: Completed infusion me1 09:14 Drug: Ondansetron IVP 4 mg IVP once; over 2 minutes Route: IVP; Site: left antecubital; iw 13:32 Follow up: Response: No adverse reaction; Nausea is decreased me1 09:14 Drug: HYDROmorphone IVP 1 mg IVP once Route: IVP; Site: left antecubital; iw 10:00 Follow up: Response: No adverse reaction; Pain is decreased me1 12:40 Drug: HYDROmorphone IVP 1 mg IVP once Route: IVP; Site: left wrist; me1 13:10 Follow up: Response: No adverse reaction; Pain is decreased me1 12:40 Drug: Piperacillin-Tazobactam IVPB 3.375 grams IVPB once over 60 mins; (mix in NS 100 me1 mL) Route: IVPB; Infused Over: 60 mins; Site: left wrist; 13:10 Follow up: Response: No adverse reaction; IV Status: Completed infusion me1 Disposition Summary: 04/07/23 11:58 Hospitalization Ordered Notes: Hospitalization Status: Inpatient Admission sp3 Provider: Martin Gerard sp3 Condition: Stable sp3 Problem: new sp3 Symptoms: have worsened sp3 Bed/Room Type: Standard sp3 Location: Telemetry/MedSurg (Inpatient)(04/07/23 16:02) em1 Room Assignment: 206(04/07/23 16:02) em1 Diagnosis - Abdominal pain, colitis sp3 Forms: - Medication Reconciliation Form sp3 - SBAR form sp3 - Leadership Thank You Letter sp3 Signatures: Dispatcher [employer] Kandice Rubio RN RN iw Jonathan Jimenez em1 Jennifer Velasco MD MD sp3 Eddleman, Jenna, RN RN me1 Corrections: (The following items were deleted from the chart) 13: 11:58 Telemetry/MedSurg (Inpatient) sp3 em1 13:55 11:58 sp3 em1 16: 13[facility] em1 16: 13:55 ERHOLD- em1 em1
--- NOTE | 2023-04-07 11:59 | ER ---
Nurse's Notes [facility] [place] Name: Daniella Gallego Age: 32 yrs Sex: Female : 1990 Arrival Date: 04/07/2023 Time: 08:17 Bed 12 Private MD: Diagnosis: Abdominal pain, colitis Presentation: 04/07 08:40 Chief complaint: Patient states: epigastric pain since 4 am, + vomiting , diarrhea last iw night. Coronavirus screen: At this time, the client does not indicate any symptoms associated with coronavirus-19. Ebola Screen: Patient negative for fever greater than or equal to 101.5 degrees Fahrenheit, and additional compatible Ebola Virus Disease symptoms Patient denies exposure to infectious person. Initial Sepsis Screen: Does the patient meet any 2 criteria? No. Patient's initial sepsis screen is negative. Does the patient have a suspected source of infection? No. Patient's initial sepsis screen is negative. Risk Assessment: Do you want to hurt yourself or someone else? Patient reports no desire to harm self or others. Onset of symptoms was April 07, 2023. 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 - Social history:: Smoking status: Reported history of juuling and/or vaping. Screenin:49 [facility] ED Fall Risk Assessment (Adult) Score/Fall Risk Level 0 - 2 = Low Risk. Abuse iw screen: Denies threats or abuse. Denies injuries from another. Nutritional screening: No deficits noted. Tuberculosis screening: No symptoms or risk factors identified. Assessment: 08:42 General: Appears uncomfortable, Behavior is cooperative. Pain: Complains of pain in iw epigastric area, right upper quadrant and left upper quadrant. Neuro: Level of Consciousness is awake, alert, obeys commands, Oriented to person, place, time, situation, Moves all extremities. Respiratory: Respiratory effort is even, unlabored, Respiratory pattern is regular. GI: Bowel sounds Abd is soft X 4 quads Reports upper abdominal pain. Derm: Skin is intact, is healthy with good turgor. Musculoskeletal: Range of motion: intact in all extremities. 10:49 Reassessment: Patient appears in no apparent distress at this time. Patient and/or iw family updated on plan of care and expected duration. Pain level reassessed. Patient is alert, oriented x 3, equal unlabored respirations, skin warm/dry/pink. Patient states feeling better. Patient states symptoms have improved. Vital Signs: 08:41 BP 114 / 80; Pulse 73; Resp 16; Pulse Ox 100% on R/A; Weight 69.85 kg; Height 5 ft. 4 iw in. ; Pain 9/10; 13:14 BP 114 / 76; Pulse 68; Resp 16; Pulse Ox 99% on R/A; me1 16:05 BP 105 / 72; Pulse 83; Resp 17; Pulse Ox 100% on R/A; me1 08:41 Body Mass Index 26.43 (69.85 kg, 162.56 cm) iw 08:41 Pain Scale: Adult iw ED Course: 08:19 Patient arrived in ED. rg4 08:41 Triage completed. iw 08:42 Kandice Frederick, RN is Primary Nurse. iw 08:46 Jennifer Velasco MD is Attending Physician. sp3 10:49 Patient has correct armband on for positive identification. Provided Education on: . iw 10:56 CT Abd/Pelvis - IV Contrast Only In Process Unspecified. EDMS 11:58 Martin Gerard MD is Hospitalizing Provider. sp3 16:08 No provider procedures requiring assistance completed. Flushed left hand. me1 16:08 Patient admitted, IV remains in place. me1 16:09 Arm band placed on Patient placed in waiting room. me1 Administered Medications: 09:14 Drug: NS 0.9% IV 1000 ml IV at 1 bolus Per protocol; 1000 mL bolus Route: IV; Rate: 1 iw bolus; Site: left antecubital; 13:32 Follow up: IV Status: Completed infusion me1 09:14 Drug: Ondansetron IVP 4 mg IVP once; over 2 minutes Route: IVP; Site: left antecubital; iw 13:32 Follow up: Response: No adverse reaction; Nausea is decreased me1 09:14 Drug: HYDROmorphone IVP 1 mg IVP once Route: IVP; Site: left antecubital; iw 10:00 Follow up: Response: No adverse reaction; Pain is decreased me1 12:40 Drug: HYDROmorphone IVP 1 mg IVP once Route: IVP; Site: left wrist; me1 13:10 Follow up: Response: No adverse reaction; Pain is decreased me1 12:40 Drug: Piperacillin-Tazobactam IVPB 3.375 grams IVPB once over 60 mins; (mix in NS 100 me1 mL) Route: IVPB; Infused Over: 60 mins; Site: left wrist; 13:10 Follow up: Response: No adverse reaction; IV Status: Completed infusion me1 Medication: 16:08 VIS not applicable for this client. me1 Outcome: 11:58 Decision to Hospitalize by Provider. sp3 16:47 Admitted to Med/surg accompanied by nurse, via wheelchair, room 206, with chart, Report me1 called to ROD Garcia (given at bedside) 16:47 Condition: stable 16:47 Instructed on the need for admit, 16:47 Patient left the ED. me1 Signatures: Dispatcher [employer] Kandice Rubio, RN Maria De Jesus Diaz rg4 Jennifer Velasco MD MD sp3 Jenna Rodriguez RN RN me1
[2023-04-07] MEDS ORDERED: NA CHLORIDE 0.9% 0 ML ONE (12:37)
[2023-04-07] MEDS ORDERED: PIPERACIL/TAZO 3.375 GM VIAL IV ONE ×2 (12:37→12:46)
[2023-04-07] MEDS ORDERED: NA CHLORIDE 0.9% 100 ML ONE (12:45)
--- NOTE | 2023-04-07 13:09 | P.HP ---
Certification for Inpatient Patient admitted to: Inpatient With expected LOS: >2 Midnights Patient will require the following post-hospital care: None Practitioner: I am a practitioner with admitting privileges, knowledge of patient current condition, hospital course, and medical plan of care. Services: Services provided to patient in accordance with Admission requirements found in Title 42 Section 412.3 of the Code of Federal Regulations Patient History Date of Service: 04/07/23 Reason for admission: Colitis History of Present Illness: 32-year-old female with history of kidney stones presented to the emergency department with 2 to 3-day history of epigastric pain, nausea, vomiting, diarrhea with "maroon" stools. She was evaluated in the emergency department, her labs were significant for white blood cell count of 14.3 hemoglobin 10.[address] abdomen pelvis IV contrast was performed which showed short segment narrowing of the transverse colon which may be secondary to spasm resulting in incomplete distention. Pathology such as inflammation or mass could also have this appearance and follow-up is recommended. ED physician spoke with general surgery who will consult on patient, also recommend GI consultation which has been placed. Patient admitted for further evaluation and management of colitis, intractable nausea/vomiting/abdominal pain Allergies No Known Drug Allergies Allergy (Verified 05/14/22 09:59) Unknown Home Medications: NK [No Home Meds] 04/29/17 - Past Medical/Surgical History -: Kidney stones -: x2 -: Lithotripsy Psychosocial/ Personal History: Lives at home with family - Family History Family History: Reviewed- Non-Contributory - Social History Smoking Status: Never smoker Alcohol use: Yes CD- Drugs: No Caffeine use: Yes Place of Residence: Home Review of Systems 10-point ROS is otherwise unremarkable Gastrointestinal: Nausea, Vomiting, Abdominal Pain, Diarrhea, Melena Physical Examination - Physical Exam General: Alert, In no apparent distress, Oriented x3 HEENT: Atraumatic, PERRLA, Mucous membr. moist/pink, EOMI, Sclerae nonicteric Neck: Supple, 2+ carotid pulse no bruit, No LAD, Without JVD or thyroid abnormality Respiratory: Clear to auscultation bilaterally, Normal air movement Cardiovascular: Regular rate/rhythm, Normal S1 S2 Gastrointestinal: Normal bowel sounds, Tenderness (Mild to moderate epigastric tenderness) Musculoskeletal: No tenderness Integumentary: No rashes Neurological: Normal speech, Normal strength at 5/5 x4 extr - Studies Laboratory Data (last 24 hrs) 04/07/23 04/07/23 09:15 09:15 WBC 14.30 H Hgb 10.3 L Hct 33.0 L Plt Count 268 Sodium 141 Potassium 3.9 BUN 14 Creatinine 0.65 Glucose 96 Total Bilirubin 0.5 AST 24 ALT 19 Alkaline Phosphatase 61 Lipase 25 Assessment and Plan - Plan Assessment: Transverse colitis Melena Intractable abdominal pain, nausea/vomiting Plan: Transverse colitis Melena Intractable abdominal pain, nausea/vomiting CT shows short segment narrowing of the transverse colon Possible etiologies include infection, inflammation or mass as well as possible spasm or incomplete distention General surgery and GI consulted place White blood cell count elevated 14,000, hemoglobin 10.3 Reports "maroon" stools. Patient to notify staff if she has a BM to further evaluate Monitor H&H, continue IV antibiotics, as needed pain medications and antiemetics N.p.o. for now No similar events in the past, no family history of GI issues or cancers Has never had EGD or colonoscopy DVT PPX: SCD Code status: Full Discharge Plan: Home Plan to discharge in: 48 Hours - Advance Directives Does patient have a Living Will: No Does patient have a Durable POA for Healthcare: No - Code Status/Comfort Care Code Status Assessed: Yes (Full code) Critical Care: No Time Spent Managing Pts Care (In Minutes): 55
[2023-04-07] MEDS ORDERED: BISACODYL E.C. 5 MG TAB PO ONE ×2 (14:00→18:00)
[2023-04-07] MEDS ORDERED: GOLYTELY 4000 ML PO SCH ×2 (14:00→18:00)
[2023-04-07] MEDS ORDERED: MAGNESIUM CITRATE 300 ML BOT PO SCH ×2 (14:00→18:00)
[2023-04-07] MEDS: METOCLOPRAMIDE 10 MG/2mL INJ IV SCH ×2 (14:00→18:04)
[2023-04-07 14:19] VITALS: BMI 26.4
[2023-04-07] MEDS ORDERED: METOCLOPRAMIDE 10 MG/2mL INJ ONE (14:46)
[2023-04-07] MEDS ORDERED: PANTOPRAZOLE INJ 80 MG in NA CHLORIDE 0.9% 250 ML IV SCH (15:00)
[2023-04-07 17:21] VITALS: BP 108/63; TEMP 98.2
[2023-04-07 17:33] VITALS: O2SAT 100
[2023-04-07] MEDS ORDERED: PIPER TAZO 3.375 GM in NA CHLORIDE 0.9% 100 ML IV SCH (17:42)
[2023-04-07] MEDS ORDERED: ONDANSETRON 4 MG/2 ML VIAL IV PRN (17:42)
[2023-04-07] MEDS ORDERED: NA CHLORIDE 0.9% 1,000 ML IV SCH (17:42)
[2023-04-07] MEDS ORDERED: HYDROMORPHONE HCL 0.5 MG/0.5 ML INJ IV PRN (17:42)
--- NOTE | 2023-04-08 01:14 | CON ---
Date of Consultation: 04/07/2023 This patient was seen in the ER. She is a 32-year-old patient who comes to us with abdominal pain. She has abdominal pain for about 2 to 3 days, getting worse, epigastric area, associated with what sh e called maroon-colored stools. There is no previous colonoscopy. There is no history of inflammato ry bowel disease. No history of Crohn disease. No trauma. She never had any colonoscopy done befor e. She does not recall pain like this before. She denies any dysuria, hematuria, hematochezia, scott na. Denies any recent traveling out of the country. Denies any family member sick at home. The pat jamie was admitted for observation since the patient has evidence of colitis, and a surgical consult w as obtained. Review of Systems: Include nausea, vomiting, maroon stools, and abdominal pain in epigastric area. Allergies: NONE. Medications: None. Surgical History: Includes C-sections and lithotripsy for kidney stones. Social History: She does not smoke. She does not drink alcohol. Physical Examination: General: The patient is awake, alert. HEENT: Pupils are equal, round, reactive. Anicteric. Neck: Supple. Chest: Clear. Heart: S1, S2. Abdomen: Epigastric tenderness. No rebound, but there is guarding in that area. The rest of the ab domen is soft and depressible. Breasts: Deferred. Pelvic: Deferred. Rectal: Deferred. Extremities: Good capillary refill. Laboratory Data: WBC count of 14.3 with hemoglobin of 10.3, platelets of 268. Chloride is 113. Lip ase 25. The CAT scan of the abdomen and pelvis, interpreted by Dr. Zhao, as short-segment narrowi ng in the mid transverse colon may be secondary to spasm resulting in incomplete distention. Patholo gy inflammation or mass, may have appearance. Assessment: This is a 32-year-old patient with colitis of unknown origin. The patient is admitted t o the hospital, started on antibiotics. GI consult was also obtained. We discussed with her the dif ferential diagnosis that even include trauma versus inflammatory bowel disease versus just colitis. No surgical intervention planned at this moment, but I will follow the patient with you and give more recommendations as the case develops. HM/MODL Voice ID: [id number] Report ID: [id number]
--- NOTE | 2023-04-08 10:15 | P.DS ---
Admission Date: 04/07/23 Discharge Date: 04/08/23 Disposition: AMA-LEFT AGAINST MEDICAL ADVIC Reason for Admission: Colitis Brief History of Present Illness: 32-year-old female with history of kidney stones presented to the emergency department with 2 to 3-day history of epigastric pain, nausea, vomiting, diarrhea with "maroon" stools. She was evaluated in the emergency department, her labs were significant for white blood cell count of 14.3 hemoglobin 10.[address] abdomen pelvis IV contrast was performed which showed short segment narrowing of the transverse colon which may be secondary to spasm resulting in incomplete distention. Pathology such as inflammation or mass could also have this appearance and follow-up is recommended. ED physician spoke with general surgery who will consult on patient, also recommend GI consultation which has been placed. Patient admitted for further evaluation and management of colitis, intractable nausea/vomiting/abdominal pain Hospital Course: Patient left AMA overnight 04/07. I was not on shift and did not have the opportunity to discuss risks of leaving AMA. Vital Signs/Physical Exam: Temp Pulse Resp BP Pulse Ox 98.2 F 55 16 108/63 99 04/07/23 17:21 04/07/23 17:21 04/07/23 17:21 04/07/23 17:21 04/07/23 17:21 Laboratory Data at Discharge: WBC 14.30 thou/uL (4.3-10.9) H 04/07/23 09:15 Hgb Cancelled 04/07/23 20:00 Hct 33.0 % (36.0-45.0) L 04/07/23 09:15 Plt Count 268 thou/uL (152-406) 04/07/23 09:15 Sodium 141 mEq/L (136-145) 04/07/23 09:15 Potassium 3.9 mEq/L (3.5-5.1) 04/07/23 09:15 BUN 14 mg/dL (7-18) 04/07/23 09:15 Creatinine 0.65 mg/dL (0.55-1.02) 04/07/23 09:15 Glucose 96 mg/dL (74-106) 04/07/23 09:15 Total Bilirubin 0.5 mg/dL (0.2-1.0) 04/07/23 09:15 AST 24 U/L (15-37) 04/07/23 09:15 ALT 19 U/L (13-56) 04/07/23 09:15 Alkaline Phosphatase 61 U/L (45-117) 04/07/23 09:15 Lipase 25 U/L (13-75) 04/07/23 09:15 Home Medications: NK [No Home Meds] 04/29/17 Followup: NONE,NONE [Primary Care Provider] -
== END 2023-04-07 19:10 | disposition left against medical advice (07) | DRG 392 ==
LOC: ER 08:17 → ERHOLD 12:53 → 2ND 16:08
PROVIDERS: ADMIT Hospitalist; ATTEND Hospitalist
DX: K52.9 Noninfective gastroenteritis and colitis, unspecified (principal); K92.1 Melena; Z88.1 Allergy status to other antibiotic agents; Z53.29 Procedure and treatment not carried out because of patient's decision for other reasons
CPT/HCPCS: 36415; 74177; 80053; 81001; 81025; 83690; 85025; C9113; J1170; J2405; J2543; J2765; J7030; J7050; Q9967

== ENCOUNTER → 2023-07-14 | Emergency (ER) | payer SELFPAY ==
[~2023-07-14] MED LIST: ACETAMINOPHEN 500 MG TAB ONE; ONDANSETRON 4 MG (ODT) TAB ONE
--- NOTE | 2023-07-14 21:13 | RAD REPORT ---
EXAM DESCRIPTION: US - Transvaginal OB - 07/14/2023 8:59 pm CLINICAL HISTORY: 9 weeks 2 days with bleeding and cramps COMPARISON: <Comparisons> FINDINGS: A single gestational sac is seen within the uterus. The shape of the sac is within normal limits for gestational age. Within the sac is a single pole with crown-rump length of 13 mm, co rrelating to estimated gestational age of 7 weeks 4 days gestational age. Estimated date of delivery is 02/26/2024. Heart rate is 142 BPM. The placenta is not yet developed due to early gestational age. The maternal adnexa and ovaries are within normal limits. Normal Doppler blood flow was demonstrated to both ovaries. IMPRESSION: Single live early intrauterine gestation with estimated gestational age of 7 weeks 4 day s, ADRIEL 02/26/2024. No unusual or unexpected finding.
--- NOTE | 2023-07-14 22:00 | ER ---
Nurse's Notes [facility] [place] Name: Daniella Gallego Age: 33 yrs Sex: Female : 1990 Arrival Date: 07/14/2023 Time: 19:44 Bed 6 Private MD: Diagnosis: Encounter for supervision of other normal , first trimester;Threatened , vaginal bleeding in , at 7 weeks gestational age Presentation: 07/13 20:02 Chief complaint: Patient states: "I'm pretty sure I'm having a miscarriage" pt reports as6 having cramping and bleeding that started today. Coronavirus screen: At this time, the client does not indicate any symptoms associated with coronavirus-19. Ebola Screen: No symptoms or risks identified at this time. Initial Sepsis Screen: Does the patient meet any 2 criteria? No. Patient's initial sepsis screen is negative. Does the patient have a suspected source of infection? No. Patient's initial sepsis screen is negative. Risk Assessment: Do you want to hurt yourself or someone else? Patient reports no desire to harm self or others. Onset of symptoms was July 14, 2023. 20:02 Acuity: TANNER 3 as6 20:02 Method Of Arrival: Ambulatory as6 Triage Assessment: 20:03 General: Appears in no apparent distress. Behavior is calm, cooperative. Pain: as6 Complains of pain in back and abdomen. : Reports vaginal bleeding that is. 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 - Social history:: Smoking status: Patient denies any tobacco usage or history of. - Family history:: not pertinent. Screenin:29 [facility] ED Fall Risk Assessment (Adult) History of falling in the last 3 months, vc1 including since admission No falls in past 3 months (0 pts) Confusion or Disorientation No (0 pts) Intoxicated or Sedated No (0 pts) Impaired Gait No (0 pts) Mobility Assist Device Used No (0 pt) Altered Elimination No (0 pt) Score/Fall Risk Level 0 - 2 = Low Risk Oriented to surroundings, Maintained a safe environment, Educated pt \\T\\ family on fall prevention, incl call for assistance when getting out of bed. Abuse screen: Denies threats or abuse. Nutritional screening: No deficits noted. Tuberculosis screening: No symptoms or risk factors identified. Assessment: 22:25 General: Pt placed in Exam room. vc1 23:26 General: Appears in no apparent distress. uncomfortable, Behavior is crying. Pain: vc1 Complains of pain in abdomen and back Pain does not radiate. Pain currently is 6 out of 10 on a pain scale. Noted to be crying, grimacing. Neuro: Level of Consciousness is awake, alert, obeys commands, Oriented to person, place, time, situation, Appropriate for age. Cardiovascular: Heart tones S1 S2 Capillary refill < 3 seconds Patient's skin is warm and dry. Rhythm is regular. Respiratory: Airway is patent Respiratory effort is even, unlabored, Respiratory pattern is regular, symmetrical, Breath sounds are clear bilaterally. GI: Reports lower abdominal pain. : Reports vaginal bleeding that is spotty. 23:53 Reassessment: Patient appears in no apparent distress at this time. No changes from jw7 previously documented assessment. Patient and/or family updated on plan of care and expected duration. Pain level reassessed. Patient is alert, oriented x 3, equal unlabored respirations, skin warm/dry/pink. Vital Signs: 20:00 BP 94 / 57; Pulse 71; Resp 18 S; Temp 98.2(TE); Pulse Ox 100% on R/A; Weight 69.85 kg as6 (R); Height 5 ft. 4 in. (R); Pain 8/10; 23:31 BP 112 / 66; Pulse 71; Resp 18; Pulse Ox 98% ; vc1 20:00 Body Mass Index 26.43 (69.85 kg, 162.56 cm) as6 20:00 Pain Scale: Adult as6 Vitals: 23:29 Heart Tones 7 weeks, tones not audible. vc1 ED Course: 19:46 Patient arrived in ED. mr 20:00 Arm band placed on right wrist. as6 20:03 Triage completed. as6 20:03 Pradeep Crump PA is PHCP. cp 20:03 Nii Santoro MD is Attending Physician. cp 20:04 Wolfgang Noyola MD is Attending Physician. sp4 21:00 Transvaginal OB In Process Unspecified. EDMS 21:59 Notified patient via phone call to return to the per Dr. Noyola to discuss results ty for ultrasound. patient stated she is on her way back. 22:25 Patient has correct armband on for positive identification. Bed in low position. Call vc1 light in reach. Pulse ox on. NIBP on. 22:42 Missed attempt(s): 22 gauge in left antecubital area. Bleeding controlled, band aid vc1 applied, catheter tip intact. 22:43 Initial lab(s) drawn, by me, sent to lab. vc1 23:25 Provided Education on: Use of Call Light. jw7 23:53 No provider procedures requiring assistance completed. Patient did not have IV access jw7 during this emergency room visit. Administered Medications: 22:24 Drug: Acetaminophen PO 1000 mg PO once Route: PO; vc1 23:36 Follow up: Response: No adverse reaction; Marked relief of symptoms jw7 23:45 Drug: Ondansetron PO 8 mg PO once Route: PO; jw7 23:52 Follow up: Response: No adverse reaction jw7 Medication: 23:31 VIS not applicable for this client. vc1 Outcome: 23:33 Discharge ordered by . sp4 23:53 Discharged to home ambulatory, jw7 23:53 Condition: stable 23:53 Discharge instructions given to patient, Instructed on discharge instructions, follow up and referral plans. medication usage, Demonstrated understanding of instructions, follow-up care, medications, Prescriptions given X 2, 23:55 Patient left the ED. jw7 Signatures: Dispatcher [employer] EDWI ShoaibAlaina, Reg Reg mr Pradeep Crump, PHILIPP PA Crow Bryant RN RN as6 Leigha Gonzalez RN RN vc1 Gail Wiggins RN RN jw7 Wolfgang Noyola MD MD sp4 Endy Ríos Corrections: (The following items were deleted from the chart) 23:54 23:20 Provided Education on: Use of Call Light. jw7 jw7
--- NOTE | 2023-07-14 22:00 | EDPHYS ---
Physician Documentation [facility] Name: Daniella Gallego Age: 33 yrs Sex: Female : 1990 Arrival Date: 07/14/2023 Time: 19:44 Bed 6 Private MD: ED Physician Wolfgang Noyola HPI: 07/13 20:05 This 33 yrs old Female presents to ER via Ambulatory with complaints of sp4 Vaginal Bleeding, + Preg <12wks. 20:22 33-year-old reportedly female presents with complaint of acute onset vaginal sp4 bleeding this morning associated with cramps. Patient states LMP was 05/10/2023. At this time patient EGA is 9 weeks 2 days by LMP. OB history -0-3-2. . 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 - Social history:: Smoking status: Patient denies any tobacco usage or history of. - Family history:: not pertinent. ROS: 20:22 Constitutional: Negative for fever, chills, and weight loss, positive for pelvic sp4 cramps and vaginal bleeding 20:22 All other systems are negative, Exam: 20:22 Constitutional: This is a well developed, well nourished patient who is awake, alert, sp4 and in no acute distress. Head/Face: Normocephalic, atraumatic. Eyes: Pupils equal round and reactive to light, extra-ocular motions intact. Lids and lashes normal. Conjunctiva and sclera are not injected. Cornea within normal limits. Periorbital areas with no swelling, redness, or edema. ENT: Nares patent. No nasal discharge, no septal abnormalities noted. Tympanic membranes are normal and external auditory canals are clear. Oropharynx with no redness, swelling, or masses, exudates, or evidence of obstruction, uvula midline. Mucous membranes moist. Neck: Trachea midline, no thyromegaly or masses palpated, and no cervical lymphadenopathy. Supple, full range of motion without nuchal rigidity, or vertebral point tenderness. Chest/axilla: Normal chest wall appearance and motion. Nontender with no deformity. No lesions are appreciated. Cardiovascular: Regular rate and rhythm with a normal S1 and S2. No gallops, murmurs, or rubs. Normal PMI, no JVD. No pulse deficits. Respiratory: Lungs have equal breath sounds bilaterally, clear to auscultation and percussion. No rales, rhonchi or wheezes noted. No increased work of breathing, no retractions or nasal flaring. Abdomen/GI: Soft, with normal bowel sounds. No distension or tympany. No guarding or rebound. No evidence of tenderness throughout. Back: No spinal tenderness. No costovertebral tenderness. Skin: Warm, dry with normal turgor. Normal color with no rashes, no lesions, and no evidence of cellulitis. MS/ Extremity: Pulses equal, no cyanosis. Neurovascular intact. Full, normal range of motion. Neuro: Awake and alert, GCS 15, oriented to person, place, time, and situation. Cranial nerves II-XII grossly intact. Motor strength 5/5 in all extremities. Sensory grossly intact. Psych: Awake, alert, with orientation to person, place and time. Behavior, mood, and affect are within normal limits Vital Signs: 20:00 BP 94 / 57; Pulse 71; Resp 18 S; Temp 98.2(TE); Pulse Ox 100% on R/A; Weight 69.85 kg as6 (R); Height 5 ft. 4 in. (R); Pain 8/10; 23:31 BP 112 / 66; Pulse 71; Resp 18; Pulse Ox 98% ; vc1 20:00 Body Mass Index 26.43 (69.85 kg, 162.56 cm) as6 20:00 Pain Scale: Adult as6 MDM: 20:04 Patient medically screened. cp 20:26 Differential diagnosis: STD, ectopic . Data reviewed: vital signs, nurses sp4 notes, lab test result(s), radiologic studies, ultrasound. 21:56 ED course: EXAM DESCRIPTION: US - Transvaginal OB - 07/14/2023 8:59 pm CLINICAL HISTORY: sp4 9 weeks 2 days with bleeding and cramps COMPARISON: FINDINGS: A single gestational sac is seen within the uterus. The shape of the sac is within normal limits for gestational age. Within the sac is a single pole with crown-rump length of 13 mm, correlating to estimated gestational age of 7 weeks 4 days gestational age. Estimated date of delivery is 02/26/2024. Heart rate is 142 BPM. The placenta is not yet developed due to early gestational age. The maternal adnexa and ovaries are within normal limits. Normal Doppler blood flow was demonstrated to both ovaries. IMPRESSION: Single live early intrauterine gestation with estimated gestational age of 7 weeks 4 days, ADRIEL 02/26/2024. No unusual or unexpected finding. . 23:31 Consideration of Admission/Observation Escalation of care including sp4 admission/observation considered. ED course: hCG level 71,000 corresponds roughly to patient's gestational age 7 to 8 weeks. Ultrasound today unremarkable. Patient is advised to have of hCG level repeated in 48 hours here or at the [facility] office. Also repeat ultrasound advised and 1 to 2 weeks. Patient will be prescribed ondansetron for nausea also Diclegis as needed for nausea. 07/13 20:10 Order name: CBC with Diff; Complete Time: 23:15 sp4 07/13 20:10 Order name: CMP; Complete Time: 23:25 sp4 07/13 20:11 Order name: HCG-Quantitative; Complete Time: 23:25 sp4 07/13 20:11 Order name: Abo/rh Typing; Complete Time: 23:15 sp4 07/13 21:00 Order name: Transvaginal OB; Complete Time: 21:54 EDMS 07/13 20:10 Order name: Labs collected and sent; Complete Time: 22:48 sp4 Administered Medications: 22:24 Drug: Acetaminophen PO 1000 mg PO once Route: PO; vc1 23:36 Follow up: Response: No adverse reaction; Marked relief of symptoms jw7 23:45 Drug: Ondansetron PO 8 mg PO once Route: PO; jw7 23:52 Follow up: Response: No adverse reaction jw7 Disposition Summary: 07/14/23 23:33 Discharge Ordered Notes: Location: Home sp4 Problem: new(07/14/23 23:33) sp4 Symptoms: have improved(07/14/23 23:33) sp4 Condition: Stable(07/14/23 23:33) sp4 Diagnosis - Encounter for supervision of other normal , first trimester sp4 - Threatened , vaginal bleeding in , at 7 weeks sp4 gestational age Followup: sp4 - With: Private Physician - When: 7 - 10 days - Reason: Recheck today's complaints Discharge Instructions: - Discharge Summary Sheet sp4 - Threatened Miscarriage, [id number] sp4 Forms: - Patient Portal Instructions sp4 Prescriptions: - Diclegis 10-10 mg Oral tablet, delayed release (enteric coated) - take 2 tablet ORAL route every 8 hours PRN nausea; 30 tablet; Refills: 0, sp4 Product Selection Permitted - ondansetron 4 mg Oral Tablet,disintegrating - take 1 tablet ORAL route every 8 hours for 5 days PRN nausea; 30 tablet; sp4 Refills: 0, Product Selection Permitted Signatures: Dispatcher [employer] EDMS Pradeep Crump PA PA cp Slawson, Ashby RN RN as6 Leigha Gonzalez RN RN vc1 Gail Wiggins RN RN jw7 Wolfgang Noyola MD MD sp4 Corrections: (The following items were deleted from the chart) 21:00 20:12 OB Limited+[email or web address].[email or web address] ordered. EDMS EDMS 22:04 21:59 after being seen by provider sp4 vc1 22:04 21:59 new sp4 vc1 22:04 21:59 are unchanged sp4 vc1 22:04 21:59 unknown sp4 vc1 22:04 21:59 Stable sp4 vc1 22:04 21:59 General bleeding in , at 7 weeks 4 days estimated gestational vc1 age sp4 23:35 20:10 IV Saline Lock ordered. sp4 jw7
[2023-07-14 22:47] LABS: Absolute Basophils 0.1 K/uL (0-0.5); Absolute Eosinophils 0.3 K/uL (0-0.5); Absolute Lymphocytes (CBC) 2.2 K/uL (0.7-4.9); Absolute Monocytes 0.7 K/uL (0.1-1.3); Basophils % 0.7 % (0-1.3); Eosinophils % 3.2 % (0-4.4); Hematocrit 31.3 % (36.0-45.0); Hemoglobin 10.4 g/dL (12.0-15.0); Lymphocytes % 21.3 % (15.3-44.8); MCHC 33.2 g/dL (32.0-36.0); MCV 81.3 fL (80-100); MPV 8.6 fL (7.6-11.3); Neutrophils % 67.8 % (41.7-73.7); Platelets 237 thou/uL (152-406); RBC Red Blood Cell Count 3.85 M/uL (3.86-4.86); Red Cell Distribution Width 18.1 % (12.1-15.2)
[2023-07-14 23:18] LABS: Albumin/Globulin Ratio 0.8 (1.1-1.8); Anion Gap 9.8 mEq/L (5.0-15.0); Bilirubin Total 0.3 mg/dL (0.2-1.0); Globulin 3.6 g/dL (2.3-3.5); Potassium 3.8 mEq/L (3.5-5.1); Protein, Total 6.6 g/dL (6.4-8.2)
[2023-07-15 00:42] VITALS: BP 112/66; TEMP 98.2; O2SAT 98
== END ==
LOC: ER 19:44
DX: O20.0 Threatened abortion (principal); Z3A.01 Less than 8 weeks gestation of pregnancy
CPT/HCPCS: 36415; 76817; 80053; 84702; 85025; 86900; 86901; 99284; Q0162

== ENCOUNTER → 2023-07-20 | Emergency (ER) | payer SELFPAY ==
[~2023-07-20] MED LIST changes: -ONDANSETRON 4 MG (ODT) TAB ONE; +PROMETHAZINE INJ 25 MG/ML AMP ONE
[2023-07-20 15:44] LABS: Absolute Basophils 0.1 K/uL (0-0.5); Absolute Eosinophils 0.4 K/uL (0-0.5); Absolute Lymphocytes (CBC) 2.1 K/uL (0.7-4.9); Absolute Monocytes 0.7 K/uL (0.1-1.3); Absolute Neutrophil 6.8 K/uL (1.8-8.0); Basophils % 1.1 % (0-1.3); Eosinophils % 3.7 % (0-4.4); Hematocrit 36.1 % (36.0-45.0); Hemoglobin 11.9 g/dL (12.0-15.0); MCH 27.1 pg (27.0-35.0); MCV 82.3 fL (80-100); MPV 8.4 fL (7.6-11.3); Monocytes % 7.4 % (3.3-12.3); Neutrophils % 66.8 % (41.7-73.7); Nucleated Red Blood Cells % 0.1 % (0-0); Platelets 295 thou/uL (152-406); RBC Red Blood Cell Count 4.39 M/uL (3.86-4.86); Red Cell Distribution Width 18.5 % (12.1-15.2)
[2023-07-20 15:48] LABS: Specific Gravity 1.017 (1.005-1.030)
[2023-07-20 15:52] LABS: Specific Gravity 1.017 (1.005-1.030); Sqamous Epithelial 20-50 /HPF (None Seen); Urine Bacteria <20 /HPF (<20); Urine Bilirubin NEGATIVE (Negative); Urine Blood 3+ (OVER) (Negative); Urine Clarity Extremely Turbid (Clear); Urine Color Light-Brown (Yellow); Urine Culture Reflex Order NOT NEEDED; Urine Glucose NEGATIVE (Negative); Urine Ketones NEGATIVE (Negative); Urine Microscopic Reflex YN ORDER UMIC; Urine Nitrite NEGATIVE (Negative); Urine Protein 1+ (Negative); Urine RBC >50 /HPF (None Seen); Urine Urobilinogen Normal (Normal); Urine WBC >50 /HPF (<5)
[2023-07-20 16:46] LABS: Anion Gap 10.1 mEq/L (5.0-15.0); Potassium 4.1 mEq/L (3.5-5.1)
--- NOTE | 2023-07-20 17:08 | RAD REPORT ---
EXAM DESCRIPTION: US - Transvaginal OB - 07/20/2023 4:48 pm CLINICAL HISTORY: with abdominal pain COMPARISON: July 14, 2023 FINDINGS: The uterus measures 12 x 8 x 7 centimeters. A gestational sac is present within the lower uterine segment endometrium measuring 1.4 centimeters. pole with a crown-rump length 1.4 centimeters. Cardiac activity 63 beats per minute. A 2.5 centimeter hypo to isoechoic structure within the uterus probably a fibroid Right ovary normal in size and echotexture contains 2.7 centimeter cyst. Left ovary not seen secondar y to overlying bowel gas The right and left adnexa unremarkable No significant free fluid IMPRESSION: Single live intrauterine with an estimated gestational 7 weeks 5 days. Interva l growth since the prior exam is less than expected. Cardiac activity diminished 63 beats per minute Gestational sac has migrated inferiorly into the lower uterine segment. These findings may indicate a n impending . This should be monitored on a subsequent examination
--- NOTE | 2023-07-20 17:48 | EDPHYS ---
Physician Documentation [facility] Name: Daniella Gallego Age: 33 yrs Sex: Female : 1990 Arrival Date: 07/20/2023 Time: 15:10 Bed 16 Private MD: ED Physician Jennifer Velasco HPI: 07/19 16:43 This 33 yrs old Female presents to ER via Ambulatory with complaints of kb Abdominal Cramping, Vaginal Bleeding, Preg-9wks. 16:43 Patient is a 33-year-old female who presents for lower abdominal cramping and vaginal kb bleeding that started 3 hours prior to arrival. Patient appears very anxious. States this is her fifth or sixth but she is not sure, P2. LMP was beginning of May.. 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 - Social history:: Smoking status: Patient denies any tobacco usage or history of. Patient/guardian denies using alcohol. ROS: 16:43 Constitutional: As per HPI kb Exam: 16:43 Head/Face: Normocephalic, atraumatic. ENT: Moist Mucous membranes Cardiovascular: kb Regular rate Respiratory: Respirations even and unlabored. No increased work of breathing. Talking in full sentences Skin: Warm, dry with normal turgor. Normal color. MS/ Extremity: Pulses equal, no cyanosis. Neurovascular intact. Full, normal range of motion. Neuro: Awake and alert, GCS 15, oriented to person, place, time, and situation. Moves all extremities. Normal gait. 16:43 Constitutional: The patient appears alert, awake, anxious, 16:43 Respiratory: Respirations: Hyperventilating, 16:43 Abdomen/GI: Palpation: moderate abdominal tenderness, in the right lower quadrant and left lower quadrant, Vital Signs: 15:21 Pulse 78; Resp 22; Temp 98.1(TE); Pulse Ox 100% on R/A; Weight 69.4 kg; Height 5 ft. 4 ld1 in. ; Pain 10/10; 15:42 BP 133 / 93; Pulse 86; Resp 24; Pulse Ox 100% on R/A; mb9 17:13 BP 130 / 92; Pulse 74; Resp 16; Pulse Ox 100% on R/A; mb9 15:21 Body Mass Index 26.26 (69.40 kg, 162.56 cm) ld1 15:21 Pain Scale: Adult ld1 MDM: 15:13 Patient medically screened. kb 16:45 Differential diagnosis: threatened Ab, inevitable Ab, ectopic . Data reviewed: kb vital signs, nurses notes. 17:44 Management of patient was discussed with the following: Dr Lock. Counseling: I had a kb detailed discussion with the patient and/or guardian regarding the historical points, exam findings, and any diagnostic results supporting the discharge/admit diagnosis, lab results, radiology results, the need for outpatient follow up, an OB/Gyne specialist, to return to the emergency department if symptoms worsen or persist or if there are any questions or concerns that arise at home. ED course: Pt educated on diagnostic results and given printed copy. Educated on need for follow up with SURVEILLANCE SENSOR OFFICER and return precautions. Verbal understanding received. . 07/19 15:25 Order name: Abo/rh Typing; Complete Time: 16:28 kb 07/19 15:25 Order name: Basic Metabolic Panel; Complete Time: 16:49 kb 07/19 15:25 Order name: CBC with Diff; Complete Time: 15:56 kb 07/19 15:25 Order name: Test, Urine; Complete Time: 15:50 kb 07/19 15:25 Order name: Quantitative Hcg; Complete Time: 16:49 kb 07/19 15:25 Order name: Urinalysis w/ reflexes; Complete Time: 15:56 kb 07/19 15:25 Order name: US Transvaginal Ob; Complete Time: 17:09 kb 07/19 15:25 Order name: IV Saline Lock; Complete Time: 15:29 kb 07/19 15:25 Order name: Labs collected and sent; Complete Time: 15:29 kb 07/19 15:25 Order name: NPO; Complete Time: 15:29 kb 07/19 15:48 Order name: Labs - recollect needed: recollect green top; Complete Time: 15:50 bd Administered Medications: 15:42 Drug: Promethazine IVP 6.25 mg IVP once Route: IVP; Site: left antecubital; mb9 15:55 Follow up: Response: No adverse reaction mb9 15:42 Drug: Acetaminophen PO 1000 mg PO once Route: PO; mb9 15:55 Follow up: Response: No adverse reaction mb9 Disposition Summary: 07/20/23 17:47 Discharge Ordered Notes: Location: Home kb Condition: Stable kb Diagnosis - Threatened kb Followup: kb - With: Emergency Department - When: As needed - Reason: Worsening of condition Followup: kb - With: Private Physician - When: 2 - 3 days - Reason: Recheck today's complaints, Continuance of care, Re-evaluation by your physician Discharge Instructions: - Discharge Summary Sheet kb - Threatened Miscarriage, [id number] kb Forms: - Medication Reconciliation Form kb - Thank You Letter kb - Antibiotic Education kb - Prescription Opioid Use kb - Patient Portal Instructions kb - Leadership Thank You Letter kb Signatures: Dispatcher [employer] Sabina Lockhart, PROMISE-C PROMISE-Melissa Ventura Lauren RN RN ld1 Alaina Olivo, RN RN mb9
--- NOTE | 2023-07-20 17:48 | ER ---
Nurse's Notes [facility] Name: Daniella Gallego Age: 33 yrs Sex: Female : 1990 Arrival Date: 07/20/2023 Time: 15:10 Bed 16 Private MD: Diagnosis: Threatened Presentation: 07/19 15:21 Chief complaint: Patient states: Abdominal cramping, bleeding, severe pain for 3 hours. ld1 Coronavirus screen: At this time, the client does not indicate any symptoms associated with coronavirus-19. Ebola Screen: No symptoms or risks identified at this time. Initial Sepsis Screen: Does the patient meet any 2 criteria? No. Patient's initial sepsis screen is negative. Does the patient have a suspected source of infection? No. Patient's initial sepsis screen is negative. Risk Assessment: Do you want to hurt yourself or someone else? Patient reports no desire to harm self or others. Onset of symptoms was July 20, 2023. 15:21 Method Of Arrival: Ambulatory ld1 15:21 Acuity: TANNER 3 ld1 Triage Assessment: 15:21 General: Appears in no apparent distress. uncomfortable, Behavior is anxious, crying. ld1 Pain: Complains of pain in abdomen Pain does not radiate. Pain currently is 6 out of 10 on a pain scale. Quality of pain is described as throbbing. Pain: Pain currently is 10 out of 10 on a pain scale. Quality of pain is described as throbbing. EENT: No signs and/or symptoms were reported regarding the EENT system. Neuro: Level of Consciousness is awake, alert, obeys commands, Oriented to person, place, time, situation. Cardiovascular: Capillary refill < 3 seconds Patient's skin is warm and dry. Respiratory: Airway is patent Respiratory effort is even, unlabored. GI: Abdomen is flat, non-distended. : No signs and/or symptoms were reported regarding the genitourinary system. Derm: No signs and/or symptoms reported regarding the dermatologic system. Musculoskeletal: No signs and/or symptoms reported regarding the musculoskeletal system. 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 - Social history:: Smoking status: Patient denies any tobacco usage or history of. Patient/guardian denies using alcohol. Screenin:17 [facility] ED Fall Risk Assessment (Adult) History of falling in the last 3 months, mb9 including since admission No falls in past 3 months (0 pts) Confusion or Disorientation No (0 pts) Intoxicated or Sedated No (0 pts) Impaired Gait No (0 pts) Mobility Assist Device Used No (0 pt) Altered Elimination No (0 pt) Score/Fall Risk Level 0 - 2 = Low Risk Oriented to surroundings, Maintained a safe environment, Educated pt \T\ family on fall prevention, incl call for assistance when getting out of bed. Abuse screen: Denies threats or abuse. Nutritional screening: No deficits noted. Tuberculosis screening: No symptoms or risk factors identified. Assessment: 15:42 General: Appears uncomfortable, Behavior is anxious, crying. Pain: Complains of pain in mb9 abdomen Pain does not radiate. Pain currently is 10 out of 10 on a pain scale. Quality of pain is described as crampy, Pain began suddenly, Is continuous. Neuro: Ray Agitation-Sedation Scale (RASS): 0 - Alert and Calm Level of Consciousness is awake, alert, obeys commands, Oriented to person, place, time, situation, Appropriate for age. Cardiovascular: Patient's skin is warm and dry. Respiratory: Airway is patent Respiratory effort is even, unlabored, Respiratory pattern is hyperventilation. GI: Abdomen is round non-distended, Bowel sounds present X 4 quads. Abd is soft Abdomen is tender to palpation in suprapubic area Reports nausea. : Reports vaginal bleeding that is with clots, light flow. EENT: No signs and/or symptoms were reported regarding the EENT system. Derm: Skin is pink, warm \T\ dry. Musculoskeletal: Range of motion: intact in all extremities. 17:13 Reassessment: No changes from previously documented assessment. Patient and/or family mb9 updated on plan of care and expected duration. Pain level reassessed. Patient is alert, oriented x 3, equal unlabored respirations, skin warm/dry/pink. Vital Signs: 15:21 Pulse 78; Resp 22; Temp 98.1(TE); Pulse Ox 100% on R/A; Weight 69.4 kg; Height 5 ft. 4 ld1 in. ; Pain 10/10; 15:42 BP 133 / 93; Pulse 86; Resp 24; Pulse Ox 100% on R/A; mb9 17:13 BP 130 / 92; Pulse 74; Resp 16; Pulse Ox 100% on R/A; mb9 15:21 Body Mass Index 26.26 (69.40 kg, 162.56 cm) ld1 15:21 Pain Scale: Adult ld1 ED Course: 15:12 Patient arrived in ED. mg5 15:13 [facility]C [facility]. kb 15:13 Jennifer Velasco MD is Attending Physician. kb 15:17 Alaina Olivo RN is Primary Nurse. mb9 15:17 Arm band placed on. mb9 15:17 Placed in gown. Bed in low position. Call light in reach. Side rails up X 1. Provided mb9 Education on: press call light when needing something. Client placed on continuous cardiac and pulse oximetry monitoring. NIBP monitoring applied. Door closed. Noise minimized. Warm blanket given. 15:18 No provider procedures requiring assistance completed. mb9 15:22 Triage completed. ld1 15:30 Inserted saline lock: 18 gauge in left antecubital area, using aseptic technique. Blood mb9 collected. 15:42 Abo/rh Typing Sent. mb9 15:42 Basic Metabolic Panel Sent. mb9 15:42 CBC with Diff Sent. mb9 15:42 Test, Urine Sent. mb9 15:42 Quantitative Hcg Sent. mb9 15:42 Urinalysis w/ reflexes Sent. mb9 15:45 Diet: Patient is NPO. mb9 15:45 Assisted to bathroom. One-on-one care X 15 minutes. mb9 16:20 Patient requests pain medication. mb9 16:25 Patient taken to ultrasound. via wheelchair. mb9 16:50 US Transvaginal Ob In Process Unspecified. EDMS 17:40 IV discontinued, intact, bleeding controlled, No redness/swelling at site. Pressure mb9 dressing applied. Administered Medications: 15:42 Drug: Promethazine IVP 6.25 mg IVP once Route: IVP; Site: left antecubital; mb9 15:55 Follow up: Response: No adverse reaction mb9 15:42 Drug: Acetaminophen PO 1000 mg PO once Route: PO; mb9 15:55 Follow up: Response: No adverse reaction mb9 Medication: 15:18 VIS not applicable for this client. mb9 Outcome: 17:47 Discharge ordered by MD. bazan 17:54 Discharged to home ambulatory, mb9 17:54 Condition: stable 17:54 Discharge instructions given to patient, Instructed on discharge instructions, follow up and referral plans. Demonstrated understanding of instructions, follow-up care, 17:54 Patient left the ED. mb9 Signatures: Dispatcher [employer] EDMS Sabina Nguyen, TAXI DRIVER SUPERVISOR-C TAXI DRIVER SUPERVISOR-Ita Bergeron RN RN ld1 Alaina Olivo RN RN mb9 Michelle Yuen mg5
[2023-07-20 18:12] VITALS: BP 130/92; TEMP 98.1; O2SAT 100
== END ==
LOC: ER 15:10
DX: O20.0 Threatened abortion (principal); Z88.3 Allergy status to other anti-infective agents
CPT/HCPCS: 36415; 76817; 80048; 81001; 81025; 84702; 85025; 86900; 86901; J2550

== ENCOUNTER 2024-05-05 13:16 | Emergency (ER) | payer SELFPAY ==
--- NOTE | 2024-05-05 13:51 | ER ---
Nurse's Notes [facility] Name: Daniella Gallego Age: 34 yrs Sex: Female : 1990 Arrival Date: 05/05/2024 Time: 13:16 Bed IW1 [facility] MD: Diagnosis: Assessment: 05/05 13:32 Reassessment: pt not in lobby when called. iw 13:40 Reassessment: called pt on phone, states she went to [facility] because she has to take her iw baby there. ED Course: 13:19 Patient arrived in ED. ra3 13:19 Taurus Lock MD is Attending Physician. ec2 13:50 Kandice Frederick RN is Primary Nurse. iw Administered Medications: No medications were administered Outcome: 13:50 Patient left the ED. iw 13:50 Eloped from waiting room, before seeing physician Time discovered patient gone: May at 13:32 Signatures: Kandice Frederick RN RN iw Taurus Lock MD MD ec2 Yoselin High ra3
== END 2024-05-05 13:50 | disposition left against medical advice (07) ==
LOC: ER 13:16
DX: Z02.9 Encounter for administrative examinations, unspecified (principal)

== ENCOUNTER 2024-05-14 19:01 | Emergency (ER) | payer SELFPAY ==
[2024-05-14] MEDS ORDERED: AMOX/K CLAV 875 MG TAB ONE (19:30)
[2024-05-14] MEDS ORDERED: HYDROCODONE/APAP 7.5/325 MG TAB ONE (19:31)
--- NOTE | 2024-05-14 19:32 | EDPHYS ---
Physician Documentation [facility] Name: Daniella Gallego Age: 34 yrs Sex: Female : 1990 Arrival Date: 05/14/2024 Time: 19: Bed IW7 Private MD: ED Physician Steffen Gerard HPI: 05/14 19:22 This 34 yrs old Female presents to ER via Unassigned with complaints of kb Abscess - Mouth. 19:22 Pt is a 34 year old female who presents for tooth pain that started 3 days ago and has kb gotten worse. States she had fever on the first day but not since then. Reports associated headache. States she has something similar a few months ago, was given antibiotics and it got better. States she followed up with a dentist since then and was told it needed to be pulled, but it was $2200 and she couldn't afford it. . Historical: - Allergies: 19:23 Rocephin; cm10 - PMHx: 19:23 Kidney stone; cm10 - PSHx: 19:23 section; Lithotripsy; cm10 - Immunization history:: Adult Immunizations up to date. - Infectious Disease History:: Denies. - Social history:: Smoking status: unknown. ROS: 19:22 Constitutional: As per HPI kb Exam: 19:28 Constitutional: This is a well developed, well nourished patient who is awake, alert, kb and in no acute distress. Head/Face: Normocephalic, atraumatic. Cardiovascular: Regular rate Respiratory: Respirations even and unlabored. No increased work of breathing. Talking in full sentences Skin: Warm, dry with normal turgor. Normal color. MS/ Extremity: Pulses equal, no cyanosis. Neurovascular intact. Full, normal range of motion. Neuro: Awake and alert, GCS 15, oriented to person, place, time, and situation. 19:28 ENT: Dental exam: abscess, that is mild, specifically in the lower left first molar (#19), gum swelling, that is mild, pain, that is moderate, specifically in the lower left first molar (#19), Vital Signs: 19:22 BP 140 / 94; Pulse 81; Resp 15; Temp 97.9; Pulse Ox 100% on R/A; Weight 67.59 kg; cm10 Height 5 ft. 4 in. ; Pain 10/; 19:22 Body Mass Index 25.58 (67.59 kg, 162.56 cm) cm10 19:22 Pain Scale: Adult cm10 MDM: 19:15 Medical Screening Exam initiated kb 19:28 Data reviewed: vital signs, nurses notes. 19:30 Differential diagnosis: dental caries, gingivitis, dental abscess, pericoronitis, kb aphthous ulcers. Test considered but Not performed: CT: ct considered but pt has no swelling, no trismus. Counseling: I had a detailed discussion with the patient and/or guardian regarding the historical points, exam findings, and any diagnostic results supporting the discharge/admit diagnosis, the need for outpatient follow up, a dentist, to return to the emergency department if symptoms worsen or persist or if there are any questions or concerns that arise at home. Administered Medications: 19:31 Drug: Hydrocodone-Acetaminophen PO (7.5 mg-325 mg) 1 tabs PO once Route: PO; cm10 19:40 Follow up: Response: No adverse reaction cm10 19:32 Drug: Amoxicillin-Clavulanate PO 875 mg PO once Route: PO; cm10 19:40 Follow up: Response: No adverse reaction cm10 Disposition Summary: 05/14/24 19:31 Discharge Ordered Notes: Location: Home kb Condition: Stable kb Diagnosis - Periapical abscess without sinus kb Followup: kb - With: Emergency Department - When: As needed - Reason: Worsening of condition Followup: kb - With: Private Physician - When: 2 - 3 days - Reason: Recheck today's complaints, Continuance of care, Re-evaluation by your physician Discharge Instructions: - Discharge Summary Sheet kb - Dental Abscess kb - Dental Pain, [id number] kb Forms: - Medication Reconciliation Form kb - Antibiotic Education kb - Prescription Opioid Use kb - Patient Portal Instructions kb - Leadership Thank You Letter kb Prescriptions: - chlorhexidine gluconate 0.12 % subgingival-local Mouthwash - swish 15 milliliter ORAL route daily for 12 hours Swish and spit; 1 unit; kb Refills: 0, Product Selection Permitted - Augmentin 875-125 mg Oral Tablet - take 1 tablet ORAL route every 12 hours for 10 days; 20 tablet; Refills: 0, kb Product Selection Permitted - Diclofenac Sodium 75 mg Oral tablet, delayed release (enteric coated) - take 1 tablet ORAL route 2 times per day As needed; 30 tablet; Refills: 0, kb Product Selection Permitted Addendum: 05/18/2024 10:07 Co-signature as Attending Physician, Steffen Gerard MD I reviewed the patient's care r n provided by the Advanced Practice Provider and agree with the diagnosis and treatment plan. Signatures: Sabina Nguyen, HERB COUNSELOR-C HERB COUNSELOR-CkSteffen Riddle MD MD rn Sarah Jimenez RN RN cm10 Corrections: (The following items were deleted from the chart) 05/14 19:28 19:22 Pt is a 34 year old female who presents for tooth pain that started 3 days ago kb and has gotten worse. States she had fever on the first day but not since then. Reports associated headache. States she has something similar a few months ago, was given antibiotics and it got better. States she followed up with a dentist since then and was told it needed to be pulled, but it was $2600 and she couldn't afford it. . kb
--- NOTE | 2024-05-14 19:32 | ER ---
Nurse's Notes [facility] Name: Daniella Gallego Age: 34 yrs Sex: Female : 1990 Arrival Date: 05/14/2024 Time: 19: Bed IW7 Private MD: Diagnosis: Periapical abscess without sinus Presentation: 05/14 19:22 Chief complaint: Patient states: Pain to tooth on left lower side onset 2 days ago. Pt cm10 has history of abscess to the same tooth. Coronavirus screen: Client denies travel out of the [place] in the last 14 days. Ebola Screen: Patient denies travel to an Ebola-affected area in the 21 days before illness onset. No symptoms or risks identified at this time. Initial Sepsis Screen: Does the patient meet any 2 criteria? No. Patient's initial sepsis screen is negative. Does the patient have a suspected source of infection? No. Patient's initial sepsis screen is negative. Risk Assessment: Do you want to hurt yourself or someone else? Patient reports no desire to harm self or others. Onset of symptoms was May 12, 2024. 19:22 Method Of Arrival: Ambulatory cm10 19:22 Acuity: TANNER 4 cm10 Triage Assessment: 19:24 General: Appears in no apparent distress. uncomfortable, Behavior is calm, cooperative. cm10 Pain: Complains of pain in lower left second molar Pain currently is 10 out of 10 on a pain scale. Quality of pain is described as throbbing. EENT: Dental caries noted in lower left second molar (#18). Neuro: No deficits noted. Level of Consciousness is awake, alert, obeys commands, Oriented to person, place, time, situation, Appropriate for age. Respiratory: No deficits noted. Airway is patent Respiratory effort is even, unlabored, Respiratory pattern is regular, symmetrical. Musculoskeletal: No deficits noted. Range of motion: intact in all extremities. Historical: - Allergies: 19:23 Rocephin; cm10 - PMHx: 19:23 Kidney stone; cm10 - PSHx: 19:23 section; Lithotripsy; cm10 - Immunization history:: Adult Immunizations up to date. - Infectious Disease History:: Denies. - Social history:: Smoking status: unknown. Screenin:25 [facility] ED Fall Risk Assessment (Adult) History of falling in the last 3 months, cm10 including since admission No falls in past 3 months (0 pts) Confusion or Disorientation No (0 pts) Intoxicated or Sedated No (0 pts) Impaired Gait No (0 pts) Mobility Assist Device Used No (0 pt) Altered Elimination No (0 pt) Score/Fall Risk Level 0 - 2 = Low Risk Oriented to surroundings, Maintained a safe environment, Hourly rounding (assess needs \T\ fall precautionary measures) done. Abuse screen: Denies threats or abuse. Denies injuries from another. Nutritional screening: No deficits noted. Tuberculosis screening: No symptoms or risk factors identified. Vital Signs: 19:22 BP 140 / 94; Pulse 81; Resp 15; Temp 97.9; Pulse Ox 100% on R/A; Weight 67.59 kg; cm10 Height 5 ft. 4 in. ; Pain 10/10; 19:22 Body Mass Index 25.58 (67.59 kg, 162.56 cm) cm10 19:22 Pain Scale: Adult cm10 ED Course: 19:03 Patient arrived in ED. ra3 19:15 Sabina Nguyen FNP-C is PHCP. kb 19:15 Steffen Gerard MD is Attending Physician. kb 19:23 Triage completed. cm10 19:24 Arm band placed on right wrist. Patient placed in waiting room. cm10 19:25 Sarah Jimenez, RN is Primary Nurse. cm10 19:25 Patient has correct armband on for positive identification. Provided Education on: cm10 Follow-up instructions. Cardiac monitoring not applicable on this patient. 19:25 No provider procedures requiring assistance completed. Patient did not have IV access cm10 during this emergency room visit. Administered Medications: 19:31 Drug: Hydrocodone-Acetaminophen PO (7.5 mg-325 mg) 1 tabs PO once Route: PO; cm10 19:40 Follow up: Response: No adverse reaction cm10 19:32 Drug: Amoxicillin-Clavulanate PO 875 mg PO once Route: PO; cm10 19:40 Follow up: Response: No adverse reaction cm10 Medication: 19:25 VIS not applicable for this client. cm10 Outcome: 19:31 Discharge ordered by . kb 19:40 Discharged to home ambulatory, Waiting for ride in [employer]. cm10 19:40 Condition: good 19:40 Discharge instructions given to patient, Instructed on discharge instructions, follow up and referral plans. medication usage, Demonstrated understanding of instructions, follow-up care, medications, Prescriptions given X 3, 19:40 Patient left the ED. cm10 Signatures: Sabina Nguyen FNP-C FNP-Ckb Martinez, Clarissa RN RN cm10 Yoselin High ra3 Corrections: (The following items were deleted from the chart) 19:25 19:24 Pain: Complains of pain in lower left second molar Pain currently is 10 out of 10 cm10 on a pain scale. cm10
[2024-05-15 17:04] VITALS: BP 140/94; TEMP 97.9; O2SAT 100
== END 2024-05-14 19:40 | disposition home or self-care (01) ==
LOC: ER 19:01
DX: K04.7 Periapical abscess without sinus (principal)
CPT/HCPCS: 99283

== ENCOUNTER 2024-06-05 03:04 | Emergency (ER) | payer SELFPAY ==
[2024-06-05] MEDS ORDERED: MORPHINE 4 MG/ML SYR ONE (04:49)
[2024-06-05] MEDS ORDERED: ONDANSETRON 4 MG/2 ML VIAL ONE (04:49)
[2024-06-05 04:50] LABS: Specific Gravity 1.022 (1.005-1.030)
[2024-06-05] MEDS ORDERED: CLINDAMYCIN 900MG/D5W 900 MG/50 ML IVPB IV ONE (05:16)
[2024-06-05] MEDS ORDERED: KETOROLAC 30 MG/ML INJ ONE (05:16)
[2024-06-05] MEDS ORDERED: BUPIVACAINE 0.5% PF 10 ML VIAL ONE ×2 (05:16→05:53)
[2024-06-05] MEDS ORDERED: methocarbamoL 750 MG TAB ONE (05:16)
--- NOTE | 2024-06-05 06:06 | EDPHYS ---
Physician Documentation [facility] Name: Daniella Gallego Age: 34 yrs Sex: Female : 1990 Arrival Date: 06/05/2024 Time: 03:04 Bed 18 Private MD: ED Physician Wolfgang Noyola HPI: 06/05 03:25 This 34 yrs old Female presents to ER via Unassigned with complaints of sp4 Abscess. 06/06 02:21 34-year-old female presents with complaint of dental abscess. Patient reports moderate sp4 to severe left upper dental pain associated with tenderness and sensitivity. Patient suspects there is an abscess.. Historical: - Allergies: 06/05 03:20 Rocephin; ha1 - PMHx: 03:20 Kidney stone; ha1 - PSHx: 03:20 section; Lithotripsy; ha1 - Immunization history:: Adult Immunizations up to date. - Infectious Disease History:: Denies. - Social history:: Smoking status: Patient denies any tobacco usage or history of. - Family history:: not pertinent. ROS: 06/06 02:21 Constitutional: Negative for fever, chills, and weight loss, positive for left upper sp4 facial pain positive for left upper dental pain All other systems are negative, Exam: 02:21 Constitutional: This is a well developed, well nourished patient who is awake, alert, sp4 and in no acute distress. Head/Face: Normocephalic, atraumatic. Eyes: Pupils equal round and reactive to light, extra-ocular motions intact. Lids and lashes normal. Conjunctiva and sclera are not injected. Cornea within normal limits. Periorbital areas with no swelling, redness, or edema. ENT: Nares patent. No nasal discharge, no septal abnormalities noted. Tympanic membranes are normal and external auditory canals are clear. Oropharynx with no redness, swelling, or masses, exudates, or evidence of obstruction, uvula midline. Mucous membranes moist. Moderate to severe left upper dental tenderness tooth #15, no signs of drainable abscess Neck: Trachea midline, no thyromegaly or masses palpated, and no cervical lymphadenopathy. Supple, full range of motion without nuchal rigidity, or vertebral point tenderness. Chest/axilla: Normal chest wall appearance and motion. Nontender with no deformity. No lesions are appreciated. Cardiovascular: Regular rate and rhythm with a normal S1 and S2. No gallops, murmurs, or rubs. Normal PMI, no JVD. No pulse deficits. Respiratory: Lungs have equal breath sounds bilaterally, clear to auscultation and percussion. No rales, rhonchi or wheezes noted. No increased work of breathing, no retractions or nasal flaring. Abdomen/GI: Soft, with normal bowel sounds. No distension or tympany. No guarding or rebound. No evidence of tenderness throughout. Back: No spinal tenderness. No costovertebral tenderness. Skin: Warm, dry with normal turgor. Normal color with no rashes, no lesions, and no evidence of cellulitis. MS/ Extremity: Pulses equal, no cyanosis. Neurovascular intact. Full, normal range of motion. Neuro: Awake and alert, GCS 15, oriented to person, place, time, and situation. Cranial nerves II-XII grossly intact. Motor strength 5/5 in all extremities. Sensory grossly intact. Vital Signs: 06/05 03:15 BP 138 / 98; Pulse 89; Resp 18 S; Temp 98.9(T); Pulse Ox 100% on R/A; Weight 68.04 kg; ha1 Height 5 ft. 3 in. ; 06:40 BP 124 / 81; Pulse 81; Resp 17 S; Pulse Ox 100% on R/A; ha1 03:15 Body Mass Index 26.57 (68.04 kg, 160.02 cm) ha1 Annia Coma Score: 06/06 02:21 Eye Response: spontaneous(4). Motor Response: obeys commands(6). Verbal Response: sp4 oriented(5). Total: 15. Procedures: 02:21 Performed Left upper dental block. Marcaine used total of 10 mL for left upper dental sp4 block. Successful block pain resolved.. MDM: 06/05 03:25 Medical Screening Exam initiated sp4 06/06 02:21 Differential diagnosis: abscess, allergic reaction, cellulitis, insect bite. Data sp4 reviewed: vital signs, nurses notes, old medical records. Consideration of Admission/Observation Escalation of care including admission/observation considered. ED course: Pain was completely alleviated. Patient stable for discharge home with prescription for p.o. clindamycin for 10 days. Advised follow-up with oral surgery.. 06/05 03:25 Order name: Test, Urine; Complete Time: 05:04 sp4 Administered Medications: 06/05 04:42 Drug: Ondansetron IVP 4 mg IVP once; over 2 minutes Route: IVP; Site: left hand; ha1 05:00 Follow up: Response: No adverse reaction ha1 04:45 Drug: morphine IVP or IV 4 mg IVP once over 4 mins Route: IVP; Infused Over: 4 mins; ha1 Site: left hand; 05:00 Follow up: Response: No adverse reaction; Pain is decreased; RASS: Alert and Calm (0) ha1 05:24 Drug: Ketorolac IVP 30 mg IVP once Route: IVP; Site: left hand; ha1 06:30 Follow up: Response: No adverse reaction; Pain is decreased ha1 05:26 Drug: Clindamycin IVPB 900 mg IVPB once over 30 mins; (mix in 50 mL) Route: IVPB; ha1 Infused Over: 30 mins; Site: left wrist; 06:30 Follow up: Response: No adverse reaction; IV Status: Completed infusion; IV Intake: [id number] 05:26 Drug: Methocarbamol PO 750 mg PO once Route: PO; ha1 06:30 Follow up: Response: No adverse reaction; Marked relief of symptoms ha1 06:00 Drug: Bupivacaine Infiltration (0.5 %) 10 ml 10 ml Infiltration once {Note: ha1 administered by Dr. Noyola .} Volume: 10 ml; Route: Infiltration; 06:30 Follow up: Response: No adverse reaction; Marked relief of symptoms; Pain is decreased ha1 Disposition: 06/06 02:23 Chart complete. sp4 Disposition Summary: 06/05/24 06:05 Discharge Ordered Notes: Location: Home sp4 Problem: new sp4 Symptoms: have improved sp4 Condition: Stable sp4 Diagnosis - Acute Pulpitis tooth # 15, Acute dental pain, Periapical Abscess sp4 Followup: sp4 - With: Giorgi Shelton DDS - When: 7 - 10 days - Reason: Recheck today's complaints Discharge Instructions: - Discharge Summary Sheet sp4 - Dental Pain, [id number] sp4 Forms: - Patient Portal Instructions sp4 Prescriptions: - acetaminophen-codeine 300-60 mg Oral tablet - take 1 tablet ORAL route every 8 hours PRN pain; 20 tablet; Refills: 0, Product sp4 Selection Permitted - Clindamycin HCl 300 mg Oral Capsule - take 1 capsule ORAL route every 6 hours for 10 days; 40 capsule; Refills: 0, sp4 Product Selection Permitted - Ibuprofen 800 mg Oral Tablet - take 1 tablet ORAL route every 8 hours As needed take with food; 30 tablet; sp4 Refills: 0, Product Selection Permitted - promethazine 25 mg Oral tablet - take 1 tablet ORAL route every 6 hours As needed PRN nausea; 30 tablet; sp4 Refills: 0, Product Selection Permitted Signatures: Dispatcher [employer] Nhi Newman RN RN ha1 Wolfgang Noyola MD MD sp4
--- NOTE | 2024-06-05 06:06 | ER ---
Nurse's Notes [facility] Name: Daniella Gallego Age: 34 yrs Sex: Female : 1990 Arrival Date: 06/05/2024 Time: 03:04 Bed 18 Private MD: Diagnosis: Acute Pulpitis tooth # 15, Acute dental pain, Periapical Abscess Presentation: 06/05 03:15 Chief complaint: Patient states: left lower jaw pain, I have been having it for over a ha1 month. the pain is intolerable. I think i have an abscess. 03:15 Coronavirus screen: Client denies travel out of the [place] in the last 14 days. Ebola ha1 Screen: No symptoms or risks identified at this time. Initial Sepsis Screen: Does the patient meet any 2 criteria? No. Patient's initial sepsis screen is negative. Does the patient have a suspected source of infection? No. Patient's initial sepsis screen is negative. Risk Assessment: Do you want to hurt yourself or someone else? Patient reports no desire to harm self or others. Onset of symptoms was June 05, 2024. 03:15 Method Of Arrival: Ambulatory ha1 03:15 Acuity: TANNER 4 ha1 Triage Assessment: 03:20 General: Appears uncomfortable, Behavior is cooperative. Pain: Complains of pain in ha1 left jaw Pain currently is 10 out of 10 on a pain scale. Quality of pain is described as stabbing, throbbing. Neuro: Level of Consciousness is awake, alert, obeys commands, Oriented to person, place, time, situation. Neuro:. Cardiovascular: Patient's skin is warm and dry. Respiratory: Airway is patent Respiratory effort is even, unlabored, Respiratory pattern is regular, symmetrical. GI: No signs and/or symptoms were reported involving the gastrointestinal system. Abdomen is round non-distended. Musculoskeletal: Circulation, motion, and sensation intact. Range of motion: intact in all extremities. Historical: - Allergies: 03:20 Rocephin; ha1 - PMHx: 03:20 Kidney stone; ha1 - PSHx: 03:20 section; Lithotripsy; ha1 - Immunization history:: Adult Immunizations up to date. - Infectious Disease History:: Denies. - Social history:: Smoking status: Patient denies any tobacco usage or history of. - Family history:: not pertinent. Screenin:42 [facility] ED Fall Risk Assessment (Adult) History of falling in the last 3 months, ha1 including since admission No falls in past 3 months (0 pts) Confusion or Disorientation No (0 pts) Intoxicated or Sedated No (0 pts) Impaired Gait No (0 pts) Mobility Assist Device Used No (0 pt) Altered Elimination No (0 pt) Score/Fall Risk Level 0 - 2 = Low Risk Oriented to surroundings, Maintained a safe environment, Educated pt \T\ family on fall prevention, incl call for assistance when getting out of bed, Hourly rounding (assess needs \T\ fall precautionary measures) done. Abuse screen: Denies threats or abuse. Denies injuries from another. Nutritional screening: No deficits noted. Tuberculosis screening: No symptoms or risk factors identified. Assessment: 06:40 Reassessment: Patient and/or family updated on plan of care and expected duration. Pain ha1 level reassessed. Patient is alert, oriented x 3, equal unlabored respirations, skin warm/dry/pink. Patient denies pain at this time. Patient states feeling better. Patient states symptoms have improved. Vital Signs: 03:15 BP 138 / 98; Pulse 89; Resp 18 S; Temp 98.9(T); Pulse Ox 100% on R/A; Weight 68.04 kg; ha1 Height 5 ft. 3 in. ; 06:40 BP 124 / 81; Pulse 81; Resp 17 S; Pulse Ox 100% on R/A; ha1 03:15 Body Mass Index 26.57 (68.04 kg, 160.02 cm) ha1 Annia Coma Score: 0205 02:21 Eye Response: spontaneous(4). Motor Response: obeys commands(6). Verbal Response: sp4 oriented(5). Total: 15. ED Course: 06/05 03:05 Patient arrived in ED. [id number] 03:23 Arm band placed on right wrist. ha1 03:25 Wolfgang Noyola MD is Attending Physician. sp4 03:40 Triage completed. ha1 03:42 Patient has correct armband on for positive identification. ha1 04:56 Nhi Goode RN is Primary Nurse. ha1 05:00 Inserted saline lock: 22 gauge in left hand, using aseptic technique. Flushed with 10 ha1 mL NS. 06:03 Giorgi Shelton DDS is Referral Physician. sp4 06:40 Provided Education on: follow up with dentist . ha1 06:40 No provider procedures requiring assistance completed. ha1 06:52 IV discontinued, intact, bleeding controlled, No redness/swelling at site. Pressure ha1 dressing applied. Administered Medications: 04:42 Drug: Ondansetron IVP 4 mg IVP once; over 2 minutes Route: IVP; Site: left hand; ha1 05:00 Follow up: Response: No adverse reaction ha1 04:45 Drug: morphine IVP or IV 4 mg IVP once over 4 mins Route: IVP; Infused Over: 4 mins; ha1 Site: left hand; 05:00 Follow up: Response: No adverse reaction; Pain is decreased; RASS: Alert and Calm (0) ha1 05:24 Drug: Ketorolac IVP 30 mg IVP once Route: IVP; Site: left hand; ha1 06:30 Follow up: Response: No adverse reaction; Pain is decreased ha1 05:26 Drug: Clindamycin IVPB 900 mg IVPB once over 30 mins; (mix in 50 mL) Route: IVPB; ha1 Infused Over: 30 mins; Site: left wrist; 06:30 Follow up: Response: No adverse reaction; IV Status: Completed infusion; IV Intake: [id number] 05:26 Drug: Methocarbamol PO 750 mg PO once Route: PO; ha1 06:30 Follow up: Response: No adverse reaction; Marked relief of symptoms ha1 06:00 Drug: Bupivacaine Infiltration (0.5 %) 10 ml 10 ml Infiltration once {Note: ha1 administered by Dr. Noyola .} Volume: 10 ml; Route: Infiltration; 06:30 Follow up: Response: No adverse reaction; Marked relief of symptoms; Pain is decreased ha1 Medication: 06:53 VIS not applicable for this client. ha1 Intake: 06:30 IV: 50ml; Total: 50ml. ha1 Outcome: 06:05 Discharge ordered by . sp4 06:53 Discharged to home ambulatory, ha1 06:53 Condition: stable 06:53 Discharge instructions given to patient, family, Instructed on discharge instructions, follow up and referral plans. medication usage, Demonstrated understanding of instructions, follow-up care, medications, Prescriptions given X 4, 06:54 Patient left the ED. ha1 Signatures: Brandi Sanchez jj6 Nhi Goode RN RN ha1 Wolfgang Noyola MD MD sp4
[2024-06-05 06:59] VITALS: TEMP 98.9; O2SAT 100
[2024-06-05 07:04] VITALS: BP 124/81
== END 2024-06-05 06:54 | disposition home or self-care (01) ==
LOC: ER 03:04
DX: K04.01 Reversible pulpitis (principal); K04.7 Periapical abscess without sinus
CPT/HCPCS: 81025; J2405

== ENCOUNTER 2024-06-06 08:31 | Emergency (ER) | payer SELFPAY ==
--- NOTE | 2024-06-06 09:53 | EDPHYS ---
Physician Documentation [facility] Name: Daniella Gallego Age: 34 yrs Sex: Female : 1990 Arrival Date: 06/06/2024 Time: 08:31 Bed IW1 Private MD: ED Physician Pradeep Ambriz HPI: 06/06 09:48 This 34 yrs old Female presents to ER via Ambulatory with complaints of Mouth austen Problem. 09:48 The patient presents with broken tooth/teeth, pain, redness, swelling. The problem is austen located in the lower left first molar. Onset: The symptoms/episode began/occurred 3 day(s) ago. Duration: The symptoms are continuous, and are steadily getting worse. Modifying factors: The symptoms are alleviated by nothing, the symptoms are aggravated by chewing, cold fluids, food. Associated signs and symptoms: The patient has no apparent associated signs or symptoms. Severity of symptoms: At their worst the symptoms were moderate, in the emergency department the symptoms are unchanged. The patient has experienced similar episodes in the past, multiple times. Historical: - Allergies: 09:45 Rocephin; iw - PMHx: 09:45 Kidney stone; iw - PSHx: 09:45 section; Lithotripsy; iw - Family history:: not pertinent. ROS: 09:48 Constitutional: Negative for fever, chills, and weight loss, Eyes: Negative for injury, austen pain, redness, and discharge, Neck: Negative for injury, pain, and swelling, Cardiovascular: Negative for chest pain, palpitations, and edema, Respiratory: Negative for shortness of breath, cough, wheezing, and pleuritic chest pain, Abdomen/GI: Negative for abdominal pain, nausea, vomiting, diarrhea, and constipation, Back: Negative for injury and pain, : Negative for injury, bleeding, discharge, and swelling, MS/Extremity: Negative for injury and deformity, Skin: Negative for injury, rash, and discoloration, Neuro: Negative for headache, weakness, numbness, tingling, and seizure, Psych: Negative for depression, anxiety, suicide ideation, homicidal ideation, and hallucinations, Allergy/Immunology: Negative for hives, rash, and allergies, Endocrine: Negative for neck swelling, polydipsia, polyuria, polyphagia, and marked weight changes, Hematologic/Lymphatic: Negative for swollen nodes, abnormal bleeding, and unusual bruising, 09:48 ENT: Positive for Teeth pain Exam: 09:48 Constitutional: This is a well developed, well nourished patient who is awake, alert, austen and in no acute distress. Eyes: Pupils equal round and reactive to light, extra-ocular motions intact. Lids and lashes normal. Conjunctiva and sclera are non-icteric and not injected. Cornea within normal limits. Periorbital areas with no swelling, redness, or edema. ENT: Nares patent. No nasal discharge, no septal abnormalities noted. Tympanic membranes are normal and external auditory canals are clear. Oropharynx with no redness, swelling, or masses, exudates, or evidence of obstruction, uvula midline. Mucous membranes moist. Neck: Trachea midline, no thyromegaly or masses palpated, and no cervical lymphadenopathy. Supple, full range of motion without nuchal rigidity, or vertebral point tenderness. No Meningismus. Chest/axilla: Normal chest wall appearance and motion. Nontender with no deformity. No lesions are appreciated. Cardiovascular: Regular rate and rhythm with a normal S1 and S2. No gallops, murmurs, or rubs. Normal PMI, no JVD. No pulse deficits. Respiratory: Lungs have equal breath sounds bilaterally, clear to auscultation and percussion. No rales, rhonchi or wheezes noted. No increased work of breathing, no retractions or nasal flaring. Abdomen/GI: Soft, non-tender, with normal bowel sounds. No distension or tympany. No guarding or rebound. No evidence of tenderness throughout. Back: No spinal tenderness. No costovertebral tenderness. Full range of motion. Skin: Warm, dry with normal turgor. Normal color with no rashes, no lesions, and no evidence of cellulitis. MS/ Extremity: Pulses equal, no cyanosis. Neurovascular intact. Full, normal range of motion., bilateral aka Neuro: Awake and alert, GCS 15, oriented to person, place, time, and situation. Cranial nerves II-XII grossly intact. Motor strength 5/5 in all extremities. Sensory grossly intact. Cerebellar exam normal. Normal gait. Psych: Awake, alert, with orientation to person, place and time. Behavior, mood, and affect are within normal limits. 09:48 Head/face: Noted is swelling, tenderness, that is moderate, of the lower left first molar, Vital Signs: 08:57 BP 126 / 86; Pulse 89; Resp 16; Temp 97.9; Pulse Ox 100% on R/A; iw MDM: 09:05 Medical Screening Exam initiated austen 09:51 Differential diagnosis: dental caries, dental abscess. Data reviewed: vital signs, austen nurses notes. Consideration of Admission/Observation Escalation of care including admission/observation considered. I considered the following discharge prescriptions or medication management in the emergency department Medications were administered in the Emergency Department. See MAR. Test considered but Not performed: Labs: no labs. Historians other than the Patient: pt well informed. Care significantly affected by the following chronic conditions: kidney stones. Administered Medications: No medications were administered Disposition Summary: 06/06/24 09:52 Discharge Ordered Notes: Location: Home austen Problem: new austen Symptoms: have improved austen Condition: Stable austen Diagnosis - Dental root caries austen - Dental caries, unspecified austen Followup: austen - With: Private Physician - When: 2 - 3 days - Reason: Recheck today's complaints, Continuance of care, Re-evaluation by your physician Followup: austen - With: Giorgi Shelton DDS - When: Upon discharge from the Emergency Department - Reason: Discharge Instructions: - Discharge Summary Sheet austen - Dental Caries, Adult uasten - Dental Pain austen - Dental Pain, [id number] austen - Dental Caries, Adult, [id number] austen Forms: - Medication Reconciliation Form austen - Antibiotic Education austen - Prescription Opioid Use austen - Patient Portal Instructions austen - Leadership Thank You Letter austen Signatures: Pradeep Ambriz MD MD cha Williams, Irene RN RN iw
--- NOTE | 2024-06-06 09:53 | ER ---
Nurse's Notes [facility] Name: Daniella Gallego Age: 34 yrs Sex: Female : 1990 Arrival Date: 06/06/2024 Time: 08:31 Bed IW1 Private MD: Diagnosis: Dental root caries;Dental caries, unspecified Presentation: 06/06 08:56 Chief complaint: Patient states: was seen here yesterday for abscess to left tooth, iw pain is worse. Coronavirus screen: At this time, the client does not indicate any symptoms associated with coronavirus-19. Ebola Screen: No symptoms or risks identified at this time. Initial Sepsis Screen: Does the patient meet any 2 criteria? No. Patient's initial sepsis screen is negative. Does the patient have a suspected source of infection?. Risk Assessment: Do you want to hurt yourself or someone else? Patient reports no desire to harm self or others. 08:56 Method Of Arrival: Ambulatory iw 08:57 Acuity: TANNER 3 iw 09:00 Onset of symptoms was June 04, 2024. iw Triage Assessment: 09:15 General: Appears in no apparent distress. Behavior is calm, cooperative. iw Historical: - Allergies: 09:45 Rocephin; iw - PMHx: 09:45 Kidney stone; iw - PSHx: 09:45 section; Lithotripsy; iw - Family history:: not pertinent. Screenin:08 [facility] ED Fall Risk Assessment (Adult) History of falling in the last 3 months, iw including since admission No falls in past 3 months (0 pts) Confusion or Disorientation No (0 pts) Intoxicated or Sedated No (0 pts) Impaired Gait No (0 pts) Mobility Assist Device Used No (0 pt) Altered Elimination No (0 pt) Score/Fall Risk Level 0 - 2 = Low Risk Oriented to surroundings, Maintained a safe environment. Abuse screen: Denies threats or abuse. Denies injuries from another. Nutritional screening: No deficits noted. Tuberculosis screening: No symptoms or risk factors identified. Assessment: 09:15 General: Appears in no apparent distress. Behavior is calm, cooperative. Pain: iw Complains of pain in lower left first molar. Neuro: Level of Consciousness is awake, alert, obeys commands, Oriented to person, place, time, situation, Moves all extremities. Cardiovascular: Patient's skin is warm and dry. Respiratory: Respiratory effort is even, unlabored, Respiratory pattern is regular. Derm: Skin is intact, is healthy with good turgor. Musculoskeletal: Range of motion: intact in all extremities. 10:09 Reassessment: called pt to triage for discharge instructions, no answer. Unable to ss locate patient. Vital Signs: 08:57 BP 126 / 86; Pulse 89; Resp 16; Temp 97.9; Pulse Ox 100% on R/A; iw ED Course: 08:32 Patient arrived in ED. mr 08:57 Triage completed. iw 09:05 Pradeep Ambriz MD is Attending Physician. austen 09:15 Patient has correct armband on for positive identification. Provided Education on: . iw 09:45 Arm band placed on. iw 09:52 Giorgi Shelton DDS is Referral Physician. austen 10:07 Kandice Frederick, ROD is Primary Nurse. iw 10:09 No provider procedures requiring assistance completed. Patient did not have IV access ss during this emergency room visit. Administered Medications: No medications were administered Medication: 10:08 VIS not applicable for this client. iw Outcome: 09:52 Discharge ordered by . [facility] 10:09 Discharged to home ambulatory, ss 10:09 Condition: Pt left prior to receiving discharge instructions 10:09 Discharge instructions given to iw 10:10 Patient left the ED. ss Signatures: Pradeep Ambriz MD MD cha Rivera, Mary, Reg Reg Kandice Frederick, RN RN Karen Holland, ROD RN ss
[2024-06-06 10:28] VITALS: BP 126/86; TEMP 97.9; O2SAT 100
== END 2024-06-06 10:10 | disposition home or self-care (01) ==
LOC: ER 08:31
DX: K02.7 Dental root caries (principal)